=== PATIENT | male | born 1950 | race Caucasian/White ===

== ENCOUNTER → 2017-08-16 09:09 | Outpatient (CLI) | payer MEDICARE, SELFPAY ==
[2017-08-16 10:29] LABS: Absolute Neutrophil Count 4.1 X10^3/uL (2.0-7.7); Basophil# 0.02 X10^3/uL; Basophil% 0.3 % (0-1); Eosinophil# 0.08 X10^3/uL; Eosinophils% 1.3 % (0-5); Hematocrit 45.6 % (40-54); Hemoglobin 15.4 g/dl (13.0-16.5); Lymphocyte % 25.3 % (19-41); Mean Corp Hgb Conc 33.8 g/gl (32-36); Mean Corpuscular Hgb 28.7 pg (27.0-32.0); Mean Corpuscular Volume 85.1 fL (80-94); Mean Platelet Vol. 10.8 fl (6.2-12.0); Monocyte% 7.9 % (0-10); Neutrophil # 4.11 X10^3/uL (2.7-7.7); Platelet Count 257 K/mm3 (150-450); RBC Distribution Width CV 13.5 % (11.6-14.6); RBC Distribution Width SD 41.5 fl (35.1-43.9); Red Blood Count 5.36 M/mm3 (4.6-6.2); White Blood Count 6.3 K/mm3 (4.4-11.0)
[2017-08-16 10:31] LABS: POSITIVE COUNT NO; POSITIVE DIFFERENTIAL NO; POSITIVE MORPHOLOGY NO
[2017-08-16 10:46] LABS: Anion Gap 9 (5-15); BUN 17 mg/dL (7-18); BUN/Creat Ratio 13.4 RATIO (10-20); Chloride 103 mmol/L (98-107); Creatinine, Serum 1.27 mg/dL (0.70-1.30); EST Glomerular Filtration Rate 61 mL/min (>60); Est Glom Filt Rate - Afr Amer 73 mL/min (>60); Glucose 96 mg/dL (74-106); PSA,Total- Diagnostic 4.54 ng/mL (0.0-4.0); Potassium 3.8 mmol/L (3.5-5.1); Sodium Level 138 mmol/L (136-145)
== END ==
PROVIDERS: Family Provider Family Medicine; PCP Family Medicine; Visit Provider Family Medicine
DX: R42 Dizziness and giddiness (principal); R97.20 Elevated prostate specific antigen [PSA]
CPT/HCPCS: 36415; 80048; 84153; 85025

== ENCOUNTER → 2017-09-21 10:03 | Outpatient (CLI) | payer MEDICARE, SELFPAY ==
--- NOTE | 2017-09-21 10:06 | RAD_ITS ---
STUDY: X-RAY - RIGHT SHOULDER REASON FOR EXAM: Male, 67 years old. Right shoulder pain TECHNIQUE: There view(s) of the shoulder. COMPARISON: None. FINDINGS: Normal glenohumeral articulation. There is degenerative arthrosis of the acromioclavicular joint without inferior osseous spur formation. Normal acromion. Normal humeral head and visualized proximal humerus. There is periarticular soft tissue calcification consistent with a calcific tendinitis. Normal visualized pulmonary apex. RAD/Shoulder min 2 Views IMPRESSION: Mild degenerative changes. Electronically Signed: Christine Hinojosa MD at 7:35 EDT , Service support ,
== END ==
PROVIDERS: Family Provider Family Medicine; PCP Family Medicine; Visit Provider Family Medicine
DX: M25.511 Pain in right shoulder (principal)
CPT/HCPCS: 73030

== ENCOUNTER 2017-10-19 09:00 | Outpatient (RCR) | payer MEDICARE, SELFPAY ==
--- NOTE | 2017-09-27 11:09 | HP.PTEVAL_ITS ---
Patient's Visit Information AQUILES BRENNER is a 67 year old M referred to Physical Therapy by Kang IRENE with a diagnosis of RIGHT SHOULDER PAIN. Date of Evaluation: 09/27/17 Physical Therapist: Riya Velásquez Visit Plan Frequency: 2-3x /Week Duration: 4-6 Weeks Plan: CERVICAL AND RIGHT SHOULDER US, STM, MH AND/OR CP NEEDED. POSTURE CORRECTION/STRENGTHENING, INSTRUCTION IN APPROPRIATE BODY MECHANICS AND ACTIVITY MODIFICATIONS. KARLY UE ROM, STRETCHING AND STRENGTHENING. HEP INSTRUCTION. - Subjective Subjective: Diagnosis: RIGHT SHOULDER PAIN. 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 Disability: NO. Present symptoms: RIGHT SHOULDER. NO PAIN NUMBNESS OR TINGLING DOWN THE ARM. Present since: YEARS ON AND OFF. FLARED UP PLAYING TENNIS LAST FALL. Pain Scale: WORST: 8/10, LEAST 0/10. Currently: 0/10. Commenced as a result of: TENNIS LAST FALL FOLLOWED BY FISHING. Symptoms at onset: SAME. Worse: PING PONG, REACHING BEHIND BACK, LIFTING, TAKING SWEATER OFF, TENNIS, FISHING - CASTING AND REALING. RIGHT SDLY AT NIGHT. REACHING BEHIND. Better: HOT BATH, RESTING IT. Disturbed sleep: AT TIMES. Previous history/Previous treatment: DRUGS. NO PT. NO CHIRO. NO SX. NO RIGHT SHOULDER INJECTIO NO. Tinnitis: NO. Nausea: NO. Difficulty Swollowing: NO. Gait: NORMAL. Accidents: NO. Unexplained weight loss: NO. Imaging: RIGHT SHOULDER X-RAY SHOWING MILD ARTHRITIS. NO MRI. NO NECK IMAGING. RIGHT SHOULDER X-RAY: Normal glenohumeral articulation. There is degenerative arthrosis of the acromioclavicular joint without inferior osseous spur formation. Normal acromion. Normal humeral head and visualized proximal humerus. There is periarticular soft tissue calcification consistent with a calcific. tendinitis. Normal visualized pulmonary apex. PMH: HTN, FIBROMYALGIA, MODERATE DDD LUMBAR L5S1. Recent major surgery: NO. OTHER: PATIENT IS RIGHT HAND DOMINANT. HAS TRIED MEDICINE AND RESTING BUT HASN'T HELPED. - Objective Sitting Posture: POOR. FORWARD HEAD, INCREASED KYPHOSIS, ROUNDED SHOULDERS AND LOW BACK. Other Observations: INDEP GAIT AND TRANSFERS. 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 LEFT UE 5/5 WITH MMT. RIGHT SHOULDER FLEX 4-/5 , ABD 4-/5, IR 4/5, ER 4-/5, ELBOW/WRIST 5/5. POOR KARLY SCAPULAR STRENGTH RIGHT > LEFT. Sensory deficit: KARLY UE LIGHT TOUCH SENSATION IS INTACT AND SYMMETRICAL. ROM deficit: SUPINE: 145 DEG RIGHT SHOULDER PASSIVE FLEX. ABD 120 DEG. ER 80 DEG, IR 50 DEG. RIGHT ELBOW, FOREARM, WRIST AND HAND WFL. LUE WFL. Reflexes: Dural Signs: POSITIVE RIGHT UE DURAL SIGN. Cervical Mvmt Loss : Flex: NIL. Pro: NIL. Ext: HERMINIO. Ret: EHRMINIO. RSB: MOD. LSB: MOD. R Rot: MOD. L Rot: MOD. PATIENT HAS A LOT OF STIFFNESS WITH CERVICAL ROM TESTING BUT NO C/O INCREASED PAIN. ERP WITH SHOULDER ROM TESTING ALL PLANES. Postural strength: POOR. Palpation: NO ACUTE PALPABLE TENDERNESS OF CERVICAL REGION OR RIGHT SHOULDER. OTHER: MANUAL CERVCIAL DISTRACTION DECREASES RIGHT SHOULDER PAIN. - Goals Goal 1:: DECREASE C/O RIGHT SHOULDER PAIN Goal Time Frame: 4-6 Weeks Goal 2:: IMPROVE REACHING, LIFTING, ADL, RECREATIONAL AND SLEEP FUNCTION OF RIGHT UE. Goal Time Frame: 4-6 Weeks Goal 3:: INSTRUCT IN PROPHYLAXIS Goal Time Frame: 4-6 Weeks - Rehabilitation Potential Rehabilitation Potential: Fair - Anticipated Interventions Patient/Client Instruction: Educate patient on: Condition, Plan of Care, Risk Factors, Benefits of Fitness Program For the Purpose of:: To improve self management Therapeutic Exercise to Include: Strength training, Postural training, Flexibilty training, Passive ROM, Active ROM, Scapular Strength/Stabilization For the Purpose of:: To decrease pain, To increase ROM, To improve muscle performance and motor function, To improve ability of physical actions for home/ community/work/leisure Manual Therapy Techniques to Include: Mobilization, Passive ROM, Soft tissue mobilization For the Purpose of:: To decrease pain, To increase ROM, To improve nutrient delivery to tissue Cryotherapy (ice pack, ice massage): Yes Thermo therapy (hot pack): Yes Ultrasound (thermal/non thermal): Yes For the Purpose of:: To decrease pain, To decrease swelling/inflammation, To increase ROM Thank you for the opportunity to evaluate your patient. For Medicare and Medicare HMO plans, please review the plan of care and approve it. It will need to be FAXED BACK to us at [phone] for Medicare purposes. Please let me know if there are questions or concerns regarding this plan of care. Physician Signature: Date:
--- NOTE | 2017-10-19 11:53 | HP.PTREVAL_ITS ---
Kang Dickerson, It has been my pleasure to treat AQUILES BRENNER over the last 10 visits for RIGHT SHOULDER PAIN. Please see the progress note below for an update on the physical therapy plan of care! 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 REPORTS HE HAS MODIFIED HOW HE CASTS AND OTHER. REPORTS HIS HIS SHOULDER ISN'T BOTHERING HIM AT NIGHT ANYMORE AND HE THINKS IT IS ABOUT 20% BETTER. PAIN SCALE RIGHT SHOULDER: WORST 6/10, LEAST 0/10. C/O NECK STIFFNESS. INTERMITTENT NECK PAIN. PATIENT REPORTS HE THINKS THE TRACTION IS HELPING AND ALSO THINKS THE EX'S ARE HELPING. PATIENT REPORTS THAT AT THIS POINT HE WANTS TO CONTINUE INDEP'LY WITH THE EX'S AND IF HE ISN'T CONTINUEING TO IMPROVE BY THE TIME HE FOLLOWS UP WITH DR. DICKERSON HE WILL ASK ABOUT COMING BACK TO PT. Objective/Function: PATIENT IS MAKING SLOW PROGRESS TOWARD ALL PT GOALS. HE APPEARS TO BE BENEFITING FROM BOTH TRACTION AND ROTATOR CUFF INTERVENTIONS. UPON EXAM: Motor deficit: RIGHT SAND BOBBER 70 LBS RIGHT SHOULDER FLEX 4/5, ABD 4/5 , IR 4/5, ER 4/5, ELBOW/WRIST 5/5. ROM deficit: SUPINE: 165 DEG RIGHT SHOULDER PASSIVE FLEX. ABD 150 DEG. ER 90 DEG, IR 73 DEG. RIGHT ELBOW, FOREARM , WRIST AND HAND WFL. Dural Signs: POSITIVE RIGHT UE DURAL SIGN. Cervical Mvmt Loss: Flex: NIL. Pro: NIL. Ext: MOD. Ret: MOD. RSB: MOD. LSB: MOD. R Rot: MIN. L Rot: MIN. PATIENT HAS A LOT OF STIFFNESS WITH CERVICAL ROM TESTING BUT NO C/O INCREASED PAIN. ERP WITH SHOULDER ROM TESTING ALL PLANES. Palpation: NO ACUTE PALPABLE TENDERNESS OF CERVICAL REGION OR RIGHT SHOULDER. OTHER: MANUAL CERVCIAL DISTRACTION DECREASES RIGHT SHOULDER PAIN. DASH SCORE HAS IMPROVED FROM 55 TO 50 Plan Plan: PATIENT IS A GOOD CANDIDATE TO CONTINUE PT BUT WE WILL HOLD PT AT PATIENTS REQUEST UNTIL FOLLOW UP WITH DR. DICKERSON. HE IS INDEP WITH A HEP AT THIS POINT. Goals Goal 1:: DECREASE C/O RIGHT SHOULDER PAIN Goal Time Frame: 4-6 Weeks Goal Progress: Progressing Goal 2:: IMPROVE REACHING, LIFTING, ADL, RECREATIONAL AND SLEEP FUNCTION OF RIGHT UE. Goal Time Frame: 4-6 Weeks Goal Progress: Progressing Goal 3:: INSTRUCT IN PROPHYLAXIS Goal Time Frame: 4-6 Weeks Goal Progress: Progressing Anticipated Interventions Patient/Client Instruction: Educate patient on: Condition, Plan of Care, Risk Factors, Benefits of Fitness Program For the Purpose of:: To improve self management Therapeutic Exercise to Include: Strength training, Postural training, Flexibilty training, Passive ROM, Active ROM, Scapular Strength/Stabilization For the Purpose of:: To decrease pain, To increase ROM, To improve muscle performance and motor function, To improve ability of physical actions for home/ community/work/leisure Manual Therapy Techniques to Include: Mobilization, Passive ROM, Soft tissue mobilization For the Purpose of:: To decrease pain, To increase ROM, To improve nutrient delivery to tissue Cryotherapy (ice pack, ice massage): Yes Thermo therapy (hot pack): Yes Ultrasound (thermal/non thermal): Yes For the Purpose of:: To decrease pain, To decrease swelling/inflammation, To increase ROM Please do not hesitate to contact me at [phone] by phone or Fax: if you have questions or concerns regarding this new plan of care! Sincerely, Riya Carter
--- NOTE | 2018-04-06 12:48 | HP.PT.NRP ---
HP - Discharge Summary (1) - Patient Information AQUILES BRENNER was seen in my office for initial evaluation on 09/27/17. The following Plan of Care was established for this patient: Initial Frequency: 2-3x /Week Initial Duration: 4-6 Weeks - Anticipated Interventions Patient/Client Instruction: Educate patient on: Condition, Plan of Care, Risk Factors, Benefits of Fitness Program For the Purpose of:: To improve self management Therapeutic Exercise to Include: Strength training, Postural training, Flexibilty training, Passive ROM, Active ROM, Scapular Strength/Stabilization For the Purpose of:: To decrease pain, To increase ROM, To improve muscle performance and motor function, To improve ability of physical actions for home/community/work/leisure Manual Therapy Techniques to Include: Mobilization, Passive ROM, Soft tissue mobilization For the Purpose of:: To decrease pain, To increase ROM, To improve nutrient delivery to tissue Cryotherapy (ice pack, ice massage): Yes Thermo therapy (hot pack): Yes Ultrasound (thermal/non thermal): Yes For the Purpose of:: To decrease pain, To decrease swelling/inflammation, To increase ROM This patient was last seen in our office . Pertinent comments regarding their Physical therapy will appear below: This patient has not returned to Physical Therapy and is appropriate to return to MD for further follow-up as needed. At this point I will be discontinuing this patient from physical therapy. I would be happy to see this patient again in the future if found appropriate by the physician. Thank you! Riya Carter
== END 2017-10-19 19:00 | disposition home or self-care (01) ==
LOC: PT 09:00
PROVIDERS: Family Provider Family Medicine; PCP Family Medicine; Visit Provider Family Medicine
DX: M25.511 Pain in right shoulder (principal)
CPT/HCPCS: 97012; 97035; 97110; 97140; 97162; 97530

== ENCOUNTER → 2017-12-12 09:31 | Outpatient (CLI) | payer MEDICARE, SELFPAY ==
--- NOTE | 2017-12-12 09:41 | MRI_ITS ---
STUDY: MRI RIGHT SHOULDER REASON FOR EXAM: Right shoulder pain and limited range of motion since March. TECHNIQUE: Standardized fat and water weighted pulse sequences were obtained in all 3 orthogonal planes. COMPARISON: Radiographs 09/21/2017. FINDINGS: Normal supraspinatus tendon. There is a signal void at the distal anterior aspect of the infraspinatus tendon (T2 coronal image 10) measuring 0.7 cm in length. There is an intrasubstance partial-thickness tear of the proximal subscapularis tendon at the musculotendinous junction (T2 coronal image 16; T2 axial image 13). Normal teres minor tendon. Normal supraspinatus muscle. Normal infraspinatus muscle. There is a cyst at the subscapularis musculotendinous junction (T2 coronal images 16-18) measuring 3.5 cm in mediolateral dimension. Normal teres minor muscle. Normal glenohumeral articulation. Normal humeral head and visualized proximal humerus. Normal biceps labral complex. Normal intracapsular long biceps tendon. Normal labrum. Normal capsulo- ligamentous complex. There is acromioclavicular arthrosis with mild hypertrophic changes effacing the subacromial fat (T2 sagittal images 13, 14). There is a Type II morphology (curved), with a neutral orientation. There is no subacromial-subdeltoid bursal fluid. Normal visualized coracohumeral and coracoacromial ligaments. Normal deltoid muscle. Normal trapezius muscle. MRI/Upper Ext Joint Only(Routine) IMPRESSION: Infraspinatus calcific tendinitis. Intrasubstance partial-thickness tear of the proximal subscapularis tendon and cyst at the subscapularis musculotendinous junction. Acromioclavicular arthrosis. Electronically Signed: Rao Soria MD at 10:54 EDT Tel , Service support ,
== END ==
PROVIDERS: Family Provider Family Medicine; PCP Family Medicine; Visit Provider Family Medicine
DX: M25.511 Pain in right shoulder (principal)
CPT/HCPCS: 73221

== ENCOUNTER → 2018-02-27 09:50 | Outpatient (CLI) | payer MEDICARE, SELFPAY ==
[2018-02-27 12:52] LABS: Anion Gap 9 (5-15); BUN 19 mg/dL (7-18); BUN/Creat Ratio 14.2 RATIO (10-20); Calcium,Total 9.1 mg/dL (8.5-10.1); Chloride 102 mmol/L (98-107); Cholesterol 202 mg/dL (200); Creatinine, Serum 1.34 mg/dL (0.70-1.30); EST Glomerular Filtration Rate 57 mL/min (>60); Est Glom Filt Rate - Afr Amer 69 mL/min (>60); Glucose 95 mg/dL (74-106); High Density Lipoprotein 40 mg/dL; Potassium 3.8 mmol/L (3.5-5.1); Sodium Level 139 mmol/L (136-145); Triglycerides 193 mg/dL; Very Low Density Lipoprotein 39 mg/dL (5-40)
== END ==
PROVIDERS: Family Provider Family Medicine; PCP Family Medicine; Visit Provider Family Medicine
DX: I10 Essential (primary) hypertension (principal)
CPT/HCPCS: 36415; 80048; 80061

== ENCOUNTER → 2018-08-31 09:56 | Outpatient (CLI) | payer MEDICARE, SELFPAY ==
[2018-08-31 13:04] LABS: Anion Gap 8 (5-15); BUN 17 mg/dL (7-18); Calcium,Total 8.9 mg/dL (8.5-10.1); Chloride 106 mmol/L (98-107); Cholesterol 179 mg/dL (200); Creatinine, Serum 1.13 mg/dL (0.70-1.30); EST Glomerular Filtration Rate 69 mL/min (>60); Est Glom Filt Rate - Afr Amer 83 mL/min (>60); Glucose 92 mg/dL (74-106); High Density Lipoprotein 37 mg/dL; Potassium 4.2 mmol/L (3.5-5.1); Sodium Level 141 mmol/L (136-145); Triglycerides 250 mg/dL; Very Low Density Lipoprotein 50 mg/dL (5-40)
== END ==
PROVIDERS: Family Provider Family Medicine; PCP Family Medicine; Referring Provider Family Medicine; Visit Provider Family Medicine
DX: I10 Essential (primary) hypertension (principal)
CPT/HCPCS: 36415; 80048; 80061

== ENCOUNTER → 2019-04-10 08:35 | Outpatient (CLI) | payer MEDICARE, SELFPAY ==
[2019-04-10 13:00] LABS: Anion Gap 7 (5-15); BUN 16 mg/dL (7-18); BUN/Creat Ratio 13.7 RATIO (10-20); Calcium,Total 9.4 mg/dL (8.5-10.1); Chloride 105 mmol/L (98-107); Cholesterol 191 mg/dL (200); Creatinine, Serum 1.17 mg/dL (0.70-1.30); EST Glomerular Filtration Rate 66 mL/min (>60); Est Glom Filt Rate - Afr Amer 80 mL/min (>60); Glucose 85 mg/dL (74-106); High Density Lipoprotein 42 mg/dL; PSA,Total - Annual Screen 4.63 ng/mL (0.00-4.00); Potassium 3.6 mmol/L (3.5-5.1); Sodium Level 139 mmol/L (136-145); Triglycerides 114 mg/dL; Very Low Density Lipoprotein 23 mg/dL (5-40)
[2019-04-10 13:20] LABS: Microalbumin,Random Urine 9.4 mg/L (NO RANGE EST.); Microalbumin:Creatinine Ratio 4.9 mg/g CRE (<30 mg/g CRE)
== END ==
PROVIDERS: Family Provider Family Medicine; PCP Family Medicine; Referring Provider Family Medicine; Visit Provider Family Medicine
DX: Z00.00 Encounter for general adult medical examination without abnormal findings (principal); I10 Essential (primary) hypertension; R97.20 Elevated prostate specific antigen [PSA]; Z12.5 Encounter for screening for malignant neoplasm of prostate
CPT/HCPCS: 36415; 80048; 80061; 82043; 82570; 84153; G0103

== ENCOUNTER → 2019-06-08 10:38 | Outpatient (CLI) | payer MEDICARE, SELFPAY ==
--- NOTE | 2019-06-08 10:50 | RAD_ITS ---
STUDY: X-RAY - RIGHT ANKLE REASON FOR EXAM: Male, 68 years old. pain, swelling TECHNIQUE: 3 view(s) of the ankle. COMPARISON: The prior exam of October 01, 2014 FINDINGS: Hypertrophic degenerative changes at the tip of the lateral malleolus. Multiple well-corticated fragments at the tip of the medial malleolus somewhat increased in size from the prior exam. Osteophyte formation on the anterior edge of the tibia at the tibiotalar articulation. Normal visualized talus and calcaneus. The visualized subtalar, talonavicular, calcaneocuboid and tarsal articulations are normal. Generalized soft tissue swelling. RAD/Ankle min 3 Views IMPRESSION: Degenerative changes of the medial and lateral malleoli appearing fairly stable on the lateral side. Chronic fragments of the medial malleolus on the left are increasing in size. Tibiotalar osteophyte is developing anteriorly. Otherwise negative for new fracture or dislocation. Electronically Signed: Krysten Kang MD at 21:24 EST , Service support ,
--- NOTE | 2019-06-08 10:50 | RAD_ITS ---
STUDY: X-RAY - LEFT FOOT CLINICAL: Male, 68 years old. pain TECHNIQUE: 3 view(s) of the foot. COMPARISON: None. FINDINGS: Normal talus, calcaneus, and tarsal bones. Normal visualized subtalar, talonavicular, calcaneocuboid, tarsal and tarsometatarsal articulations. Normal metatarsi. There is degenerative arthrosis of the metatarsophalangeal joint of the hallux . Normal tibial and fibular sesamoid bones. Normal interphalangeal joint of the great toe. Normal phalanges of the great toe. Normal second through fifth metatarsophalangeal joints. Normal interphalangeal joints and phalanges of the lesser toes. The soft tissue structures are unremarkable. RAD/Foot min 3 Views IMPRESSION: Minimal degenerative change of the first metatarsophalangeal joint. Otherwise normal foot. Electronically Signed: Krysten Kang MD at 21:37 EST , Service support ,
== END ==
PROVIDERS: Family Provider Family Medicine; PCP Family Medicine; Referring Provider Podiatrist; Visit Provider Podiatrist
DX: M10.9 Gout, unspecified (principal)
CPT/HCPCS: 73610; 73630

== ENCOUNTER → 2019-09-06 10:25 | Outpatient (CLI) | payer MEDICARE, SELFPAY ==
[2019-09-06 12:52] LABS: Anion Gap 5 (5-15); BUN 17 mg/dL (7-18); BUN/Creat Ratio 14.5 RATIO (10-20); Calcium,Total 9.3 mg/dL (8.5-10.1); Chloride 106 mmol/L (98-107); Creatinine, Serum 1.17 mg/dL (0.70-1.30); EST Glomerular Filtration Rate 66 mL/min (>60); Est Glom Filt Rate - Afr Amer 80 mL/min (>60); Glucose 97 mg/dL (74-106); PSA,Total- Diagnostic 5.51 ng/mL (0.0-4.0); Potassium 3.8 mmol/L (3.5-5.1); Sodium Level 137 mmol/L (136-145)
== END ==
PROVIDERS: PCP Family Medicine; Referring Provider Family Medicine; Visit Provider Family Medicine
DX: R97.20 Elevated prostate specific antigen [PSA] (principal); I10 Essential (primary) hypertension
CPT/HCPCS: 36415; 80048; 84153

== ENCOUNTER → 2019-10-22 10:55 | Outpatient (CLI) | payer MEDICARE, SELFPAY ==
[2019-10-22 12:17] LABS: Absolute Lymphocyte Count 1.41 X10^3/uL (0.83-4.51); Absolute Neutrophil Count 3.6 X10^3/uL (2.0-7.7); Basophil# 0.03 X10^3/uL; Basophil% 0.5 % (0-1); Eosinophils% 1.8 % (0-5); Hematocrit 46.4 % (40-54); Lymphocyte # 1.41 X10^3/ul (4.0); Lymphocyte % 25.1 % (19-41); Mean Corp Hgb Conc 32.3 g/dL (32-36); Mean Corpuscular Hgb 28.2 pg (27.0-32.0); Mean Corpuscular Volume 87.2 fL (80-94); Mean Platelet Vol. 10.7 fl (6.2-12.0); Monocyte# 0.45 X10^3/uL; NRBC Flagged by Analyzer 0 % (0-5); Neutrophil # 3.61 X10^3/uL (2.7-7.7); Neutrophil % 64.2 % (47-70); Platelet Count 264 K/mm3 (150-450); RBC Distribution Width CV 13.4 % (11.6-14.6); RBC Distribution Width SD 42.4 fl (35.1-43.9); Red Blood Count 5.32 M/mm3 (4.6-6.2); White Blood Count 5.6 K/mm3 (4.4-11.0)
[2019-10-22 12:42] LABS: AST(SGOT) 23 U/L (15-37); Alanine Aminotransfer ALT/SGPT 34 U/L (16-61); Albumin, Serum 3.7 g/dL (3.2-5.0); Alkaline Phosphatase 92 U/L (45-117); Bilirubin, Direct 0.17 mg/dL (0.00-0.30); Creatinine, Serum 1.13 mg/dL (0.70-1.30); EST Glomerular Filtration Rate 69 mL/min (>60); Est Glom Filt Rate - Afr Amer 83 mL/min (>60); Protein, Total 7.7 g/dL (6.4-8.2); Uric Acid 3.5 mg/dL (3.5-7.2)
== END ==
PROVIDERS: PCP Family Medicine; Referring Provider Internal Medicine Rheumatology; Visit Provider Internal Medicine Rheumatology
DX: M10.9 Gout, unspecified (principal); Z79.899 Other long term (current) drug therapy
CPT/HCPCS: 36415; 80076; 82565; 84550; 85025

== ENCOUNTER → 2019-12-14 10:56 | Outpatient (CLI) | payer MEDICARE, SELFPAY ==
[2019-12-14 11:24] LABS: Mucous, Urine 0 SEEN /hpf (<or=2+); Red Blood Cells-Urine 0 SEEN /hpf (0-5); Squamous Epithelial Cells - UA 0 SEEN /hpf (0-5); White Blood Cells 0 SEEN /hpf (0-5)
[2019-12-14 12:15] LABS: Absolute Lymphocyte Count 1.46 X10^3/uL (0.83-4.51); Absolute Neutrophil Count 3.9 X10^3/uL (2.0-7.7); Basophil# 0.03 X10^3/uL; Basophil% 0.5 % (0-1); Eosinophil# 0.06 X10^3/uL; Hematocrit 47.5 % (40-54); Hemoglobin 15.5 g/dL (13.0-16.5); Lymphocyte # 1.46 X10^3/ul (4.0); Lymphocyte % 24.3 % (19-41); Mean Corp Hgb Conc 32.6 g/dL (32-36); Mean Corpuscular Hgb 28.5 pg (27.0-32.0); Mean Corpuscular Volume 87.3 fL (80-94); Mean Platelet Vol. 10.5 fl (6.2-12.0); Monocyte% 8.3 % (0-10); NRBC Flagged by Analyzer 0 % (0-5); Neutrophil # 3.94 X10^3/uL (2.7-7.7); Neutrophil % 65.7 % (47-70); Platelet Count 273 K/mm3 (150-450); RBC Distribution Width CV 13.2 % (11.6-14.6); RBC Distribution Width SD 41.3 fl (35.1-43.9); Red Blood Count 5.44 M/mm3 (4.6-6.2)
[2019-12-14 12:22] LABS: Color, Urine Yellow (Yellow); Glucose, Dipstick Normal (Normal); Ketone-Dipstick Negative (Negative); Leukocyte Esterase-Dipstick 25 /ul (Negative); Nitrite-Dipstick Negative (Negative); Occult Blood-Urine 25 /ul (Negative); Protein-Dipstick Negative (Negative); Urine Bilirubin Dipstick Negative (Negative); Urine Clarity Clear (Clear); Urine Urobilinogen Normal (Normal)
[2019-12-14 12:36] LABS: Bacteria RARE /hpf (None Seen)
[2019-12-14 12:43] LABS: AST(SGOT) 25 U/L (15-37); Alanine Aminotransfer ALT/SGPT 33 U/L (16-61); Albumin, Serum 3.9 g/dL (3.2-5.0); Alkaline Phosphatase 104 U/L (45-117); Bilirubin, Direct 0.17 mg/dL (0.00-0.30); Creatinine, Serum 1.08 mg/dL (0.70-1.30); EST Glomerular Filtration Rate 72 mL/min (>60); Est Glom Filt Rate - Afr Amer 88 mL/min (>60); Globulin 4.2 g/dL (2.2-4.2); Protein, Total 8.1 g/dL (6.4-8.2); Uric Acid 3.9 mg/dL (3.5-7.2)
[2019-12-17 16:08] LABS: RNP Ab <0.2 AI (0.0-0.9); Smith Ab <0.2 AI (0.0-0.9)
[2019-12-17 20:08] LABS: Anti-Mitochondrial AB <20.0 Units (0.0-20.0); Anti-dsDNA Ab <1 IU/mL (0-9)
[2019-12-18 09:07] LABS: Complement C3 127 mg/dL (82-167)
[2019-12-18 15:50] LABS: Anti-Cardiolipin Ab, IgG, Qn 10 GPL U/mL (0-14); Anti-Cardiolipin Ab, IgM, Qn < 9 MPL U/mL (0-12); Anti-Smooth Muscle ABS 24 Units (0-19); Thyroglobulin Antibody < 1.0 IU/mL (0.0-0.9); Thyroid Peroxidase AB < 9 IU/mL (0-34)
== END ==
PROVIDERS: PCP Family Medicine; Referring Provider Internal Medicine Rheumatology; Visit Provider Internal Medicine Rheumatology
DX: R76.0 Raised antibody titer (principal); Z79.899 Other long term (current) drug therapy; M10.9 Gout, unspecified
CPT/HCPCS: 36415; 80076; 81001; 82565; 83516; 84550; 85025; 86147; 86160; 86225; 86235; 86376; 86800

== ENCOUNTER → 2020-03-06 08:51 | Outpatient (CLI) | payer MEDICARE, SELFPAY ==
--- NOTE | 2020-03-06 08:53 | RAD_ITS ---
STUDY: X-RAY - LEFT SHOULDER REASON FOR EXAM: Male, 69 years old. Left shoulder pain TECHNIQUE: 4 view(s) of the shoulder. COMPARISON: None. FINDINGS: There is mild degenerative arthrosis of the glenohumeral articulation. There is degenerative arthrosis of the acromioclavicular joint without inferior osseous spur formation. Normal acromion. Normal humeral head and visualized proximal humerus. The soft tissue structures are unremarkable. Normal visualized pulmonary apex. RAD/Shoulder min 2 Views IMPRESSION: Degenerative changes of the shoulder joint and acromioclavicular joint. Electronically Signed: Jesus Alberto Rodriguez, at 13:59 EDT , Service support ,
[2020-03-06 18:30] LABS: PSA,Total- Diagnostic 5.52 ng/mL (0.0-4.0)
[2020-03-09 14:50] LABS: PSA, Free % 27.9 % (.); PSA, Total Ultrasensitive 4.3 ng/mL (0.0-4.0)
== END ==
PROVIDERS: PCP Family Medicine; Referring Provider Family Medicine; Visit Provider Family Medicine
DX: M25.512 Pain in left shoulder (principal); R97.20 Elevated prostate specific antigen [PSA]
CPT/HCPCS: 36415; 73030; 84153; 84154

== ENCOUNTER 2020-03-17 09:30 | Outpatient (RCR) | payer MEDICARE, SELFPAY ==
--- NOTE | 2020-03-11 07:47 | HP.PTEVAL ---
Patient's Visit Information AQUILES BRENNER is a 69 year old M referred to Physical Therapy by Dr. Kang Dickerson MD with a diagnosis of L shoulder pain. Date of Evaluation: 03/11/20 Physical Therapist: German Ceron DPT, OCS, CSCS - Visit Plan Frequency: 1x/Week Duration: 4-6 Weeks Plan: weekly x 4-6 to progress HEP for strengtha dn ROM. Educate on activitiy modification. Next time strength if improving(phase 3) or end range stretches if flexion, abd, IR, ER still limited and painful - Subjective L shoulder hurting 3-4 months insidious but possibly after using the chainsaw. Intermittent pain. Can't reach with L arm or put hand behind back, hard to dress. Can't sleep on left side. Got cortisone injection a few days ago which helped a little buit. Reaching pain is 10/10. Comfortable at rest. Sometimes it hurts at rest. Sleep is not bad but wakes up with pain at times. Retired. Spends day working in yard and fishing and this hurts to fish needing to take ibuprofen. Is R handed. Basic ADLS are getting done but dressing can hurt. No regular exercises. - Pain L shoulder top Pain Intensity (Out of 10): 0 Pain Intensity Range: 0, 10 - Objective Walks and trasnfers normal. Cervical AROM WFL and painfree. Tender to palpation over anterior superior joint and at supraspinatus insertion. + H and + neer test, - ext rotation lag test, - apprehension, - sulcus, - drop arm test. AROM L shoulder 35 ext rotation and pain, 70 IR at 80 abd with some pain, 145 flexion with pain, 140 abd with pain. R shoulder is 160 elevation, and 75 ext rotation and 80 IR without pain. reflexes 2/3 patella and achilles. Sensation UE WNL. Strength ext rotation slight pain and 4-, IR pain and 4-, flexiona nd abduction 4- and painful all on L. R side is 4+ and painfree today. Firm endfeel at end of elevation and external rotation on L prom. - Goals Goal 1:: Put on jacket without Pain L shoulder Goal Time Frame: 4-6 Weeks Goal 2:: Pt feel pain 90% better and 1/10 at worst Goal Time Frame: 4-6 Weeks Goal 3:: Quick Dash score of 15 or less Goal Time Frame: 4-6 Weeks Goal 4:: Sleep without waking due to pain Goal Time Frame: 4-6 Weeks - Rehabilitation Potential Physical Therapy Diagnosis: L supra tendonitis vs OA L shoulder. Rehabilitation Potential: Fair - Anticipated Interventions Patient/Client Instruction: Educate patient on: Condition, Plan of Care For the Purpose of:: To decrease pain, To increase ROM, To improve muscle performance and motor function, To increase tolerance to activity/condition/position, To improve ability of physical actions for home/community/work/leisure Therapeutic Exercise to Include: Strength training, Postural training, Flexibilty training, Scapular Strength/Stabilization For the Purpose of:: To decrease pain, To increase ROM, To improve muscle performance and motor function, To increase tolerance to activity/condition/position Manual Therapy Techniques to Include: Mobilization For the Purpose of:: To increase ROM Ultrasound (thermal/non thermal): Yes For the Purpose of:: To increase tolerance to activity/condition/position Thank you for the opportunity to evaluate your patient. For Medicare and Medicare HMO plans, please review the plan of care and approve it. It will need to be FAXED BACK to us at [phone] for Medicare purposes. For Medicare only, by signing this I certify the plan of care. Please let me know if there are questions or concerns regarding this plan of care. Physician Signature: Date:
--- NOTE | 2020-05-06 15:49 | HP.PT.NRP ---
AQUILES BRENNER was seen in my office for initial evaluation on 03/11/20. The following Plan of Care was established for this patient: Initial Frequency: 1x/Week Initial Duration: 4-6 Weeks Patient/Client Instruction: Educate patient on: Condition, Plan of Care For the Purpose of:: To decrease pain, To increase ROM, To improve muscle performance and motor function, To increase tolerance to activity/condition/position, To improve ability of physical actions for home/community/work/leisure Therapeutic Exercise to Include: Strength training, Postural training, Flexibilty training, Scapular Strength/Stabilization For the Purpose of:: To decrease pain, To increase ROM, To improve muscle performance and motor function, To increase tolerance to activity/condition/position Manual Therapy Techniques to Include: Mobilization For the Purpose of:: To increase ROM Ultrasound (thermal/non thermal): Yes For the Purpose of:: To increase tolerance to activity/condition/position This patient was last seen in our office 03/17/20. Pertinent comments regarding their Physical therapy will appear below: Pt seen two visits of POC and then did not return for any further visits. at this point, it has been over two months and I will discontinue due to nonattendance. At this point I will be discontinuing this patient from physical therapy. I would be happy to see this patient again in the future if found appropriate by the physician. Thank you! German Ceron, DPT, OCS, CSCS
== END 2020-03-17 19:00 | disposition home or self-care (01) ==
LOC: PT 09:30
PROVIDERS: PCP Family Medicine; Referring Provider Family Medicine; Visit Provider Family Medicine
DX: M25.512 Pain in left shoulder (principal)
CPT/HCPCS: 97110; 97161

== ENCOUNTER → 2020-04-14 08:18 | Outpatient (CLI) | payer MEDICARE, SELFPAY ==
[2020-04-14 08:25] LABS: Bacteria 0 SEEN /hpf (None Seen); Mucous, Urine 0 SEEN /hpf (<or=2+); Squamous Epithelial Cells - UA 0 SEEN /hpf (0-5); White Blood Cells 0 SEEN /hpf (0-5)
[2020-04-14 10:42] LABS: Absolute Lymphocyte Count 1.56 X10^3/uL (0.83-4.51); Absolute Neutrophil Count 5.2 X10^3/uL (2.0-7.7); Basophil# 0.02 X10^3/uL; Basophil% 0.3 % (0-1); Eosinophil# 0.05 X10^3/uL; Eosinophils% 0.7 % (0-5); Hematocrit 47.9 % (40-54); Hemoglobin 15.2 g/dL (13.0-16.5); Lymphocyte # 1.56 X10^3/ul (4.0); Lymphocyte % 21.3 % (19-41); Mean Corp Hgb Conc 31.7 g/dL (32-36); Mean Corpuscular Hgb 28.4 pg (27.0-32.0); Mean Corpuscular Volume 89.4 fL (80-94); Mean Platelet Vol. 10.4 fl (6.2-12.0); Monocyte# 0.48 X10^3/uL; Monocyte% 6.5 % (0-10); NRBC Flagged by Analyzer 0 % (0-5); Neutrophil % 70.8 % (47-70); Platelet Count 271 K/mm3 (150-450); RBC Distribution Width SD 42.9 fl (35.1-43.9); Red Blood Count 5.36 M/mm3 (4.6-6.2); White Blood Count 7.3 K/mm3 (4.4-11.0)
[2020-04-14 10:51] LABS: Color, Urine Yellow (Yellow); Glucose, Dipstick Normal (Normal); Ketone-Dipstick Negative (Negative); Leukocyte Esterase-Dipstick Negative /ul (Negative); Nitrite-Dipstick Negative (Negative); Occult Blood-Urine 25 /ul (Negative); Protein-Dipstick Negative (Negative); Urine Bilirubin Dipstick Negative (Negative); Urine Clarity Clear (Clear); Urine Urobilinogen Normal (Normal)
[2020-04-14 10:59] LABS: AST(SGOT) 19 U/L (15-37); Alanine Aminotransfer ALT/SGPT 29 U/L (16-61); Albumin, Serum 3.8 g/dL (3.2-5.0); Alkaline Phosphatase 89 U/L (45-117); Bilirubin, Direct 0.21 mg/dL (0.00-0.30); Creatinine, Serum 1.17 mg/dL (0.70-1.30); EST Glomerular Filtration Rate 66 mL/min (>60); Est Glom Filt Rate - Afr Amer 80 mL/min (>60); Globulin 3.9 g/dL (2.2-4.2); Protein, Total 7.7 g/dL (6.4-8.2); Uric Acid 3.3 mg/dL (3.5-7.2)
[2020-04-14 11:25] LABS: Red Blood Cells-Urine 0-5 SEEN /hpf (0-5)
[2020-04-15 15:41] LABS: Anti-dsDNA Ab 1 IU/mL (0-9)
[2020-04-15 16:08] LABS: Complement C3 133 mg/dL (82-167)
[2020-04-15 19:50] LABS: Anti-Smooth Muscle ABS 19 Units (0-19)
== END ==
PROVIDERS: PCP Family Medicine; Referring Provider Internal Medicine Rheumatology; Visit Provider Internal Medicine Rheumatology
DX: K75.4 Autoimmune hepatitis (principal); R76.0 Raised antibody titer; M10.9 Gout, unspecified
CPT/HCPCS: 36415; 80076; 81001; 82565; 83516; 84550; 85025; 86160; 86225

== ENCOUNTER → 2020-04-17 08:49 | Outpatient (CLI) | payer MEDICARE, SELFPAY ==
[2020-04-17 10:16] LABS: Cholesterol 189 mg/dL (200); High Density Lipoprotein 53 mg/dL; Triglycerides 117 mg/dL; Very Low Density Lipoprotein 23 mg/dL (5-40)
== END ==
PROVIDERS: PCP Family Medicine; Referring Provider Family Medicine; Visit Provider Family Medicine
DX: I10 Essential (primary) hypertension (principal)
CPT/HCPCS: 36415; 80061

== ENCOUNTER → 2020-08-11 15:37 | Outpatient (CLI) | payer MEDICARE, SELFPAY ==
[2020-08-11 15:44] LABS: Bacteria 0 SEEN /hpf (None Seen); Mucous, Urine 0 SEEN /hpf (<or=2+); Squamous Epithelial Cells - UA 0 SEEN /hpf (0-5); White Blood Cells 0 SEEN /hpf (0-5)
[2020-08-11 18:02] LABS: Absolute Lymphocyte Count 2.04 X10^3/uL (0.83-4.51); Basophil# 0.04 X10^3/uL; Basophil% 0.6 % (0-1); Eosinophils% 1.5 % (0-5); Hematocrit 45.4 % (40-54); Hemoglobin 14.7 g/dL (13.0-16.5); Lymphocyte # 2.04 X10^3/ul (4.0); Mean Corp Hgb Conc 32.4 g/dL (32-36); Mean Corpuscular Hgb 28.6 pg (27.0-32.0); Mean Corpuscular Volume 88.3 fL (80-94); Mean Platelet Vol. 10.7 fl (6.2-12.0); Monocyte# 0.65 X10^3/uL; Monocyte% 9.6 % (0-10); NRBC Flagged by Analyzer 0 % (0-5); Neutrophil # 3.95 X10^3/uL (2.7-7.7); Platelet Count 285 K/mm3 (150-450); RBC Distribution Width CV 13.1 % (11.6-14.6); RBC Distribution Width SD 42.3 fl (35.1-43.9); Red Blood Count 5.14 M/mm3 (4.6-6.2); White Blood Count 6.8 K/mm3 (4.4-11.0)
[2020-08-11 18:39] LABS: Color, Urine Yellow (Yellow); Glucose, Dipstick Normal (Normal); Ketone-Dipstick Negative (Negative); Leukocyte Esterase-Dipstick 25 /ul (Negative); Nitrite-Dipstick Negative (Negative); Occult Blood-Urine 50 /ul (Negative); Protein-Dipstick Negative (Negative); Urine Bilirubin Dipstick Negative (Negative); Urine Clarity Clear (Clear); Urine Urobilinogen Normal (Normal)
[2020-08-11 18:50] LABS: AST(SGOT) 19 U/L (15-37); Alanine Aminotransfer ALT/SGPT 38 U/L (16-61); Alkaline Phosphatase 117 U/L (45-117); Bilirubin, Direct 0.14 mg/dL (0.00-0.30); EST Glomerular Filtration Rate 71 mL/min (>60); Est Glom Filt Rate - Afr Amer 86 mL/min (>60); Uric Acid 3.3 mg/dL (3.5-7.2)
[2020-08-11 18:58] LABS: Red Blood Cells-Urine 0-5 SEEN /hpf (0-5)
[2020-08-13 15:42] LABS: Anti-dsDNA Ab 1 IU/mL (0-9)
[2020-08-13 16:10] LABS: Complement C3 129 mg/dL (82-167)
[2020-08-13 16:20] LABS: Anti-Smooth Muscle ABS 25 Units (0-19)
== END ==
PROVIDERS: PCP Family Medicine; Referring Provider Internal Medicine Rheumatology; Visit Provider Internal Medicine Rheumatology
DX: R76.0 Raised antibody titer (principal); M10.9 Gout, unspecified; K75.4 Autoimmune hepatitis; Z79.899 Other long term (current) drug therapy
CPT/HCPCS: 36415; 80076; 81001; 82565; 83516; 84550; 85025; 86160; 86225

== ENCOUNTER 2020-08-12 05:55 | Emergency (ER) | payer MEDICARE, SELFPAY ==
[2020-08-12 05:57] VITALS: BP 161/85; PULSE 88; RESP 13; TEMP 36.8; O2SAT 98; BMI 29.0
--- NOTE | 2020-08-12 06:03 | EKG12_ITS ---
Test Reason : CP Blood Pressure : / mmHG Vent. Rate : 091 BPM Atrial Rate : 091 BPM P-R Int : 184 ms QRS Dur : 084 ms QT Int : 358 ms P-R-T Axes : 062 065 050 degrees QTc Int : 440 ms Normal sinus rhythm Normal ECG Confirmed by YAMILET MCCAIN, RONDA ([id number]), advertising editor MICHELLE GUERIN ([id number]) on 08/13/2020 12:50:56 PM Referred By: DC Confirmed By:RONDA WOODARD MD
--- NOTE | 2020-08-12 06:03 | RAD_ITS ---
STUDY: X-RAY CHEST REASON FOR EXAM: Male, 70 years old. C/O LT SIDED CP SINCE 189908/11/20 TECHNIQUE: Single AP portable view of the chest. COMPARISON: None. FINDINGS: The lungs are clear and expanded. There is no demonstrated pleural abnormality. Normal size heart. Normal mediastinum and natalie. Normal visualized pulmonary arteries. Normal visualized aortic arch and descending thoracic aorta. Normal visualized thoracic spine. There is degenerative osteoarthritis of the bilateral shoulders. There is no demonstrated abnormality of the visualized soft tissue structures of the upper abdomen. RAD/Chest 1 View (Portable) IMPRESSION: Degenerative changes, as described above. No demonstrated acute cardiopulmonary process. Electronically Signed: Franklin Baca MD at 6:29 EST Tel , Service support ,
[2020-08-12 06:05] VITALS: O2SAT 97
[2020-08-12] MEDS: Aspirin 81 MG TAB.CHEW 324 MG PO (06:06)
[2020-08-12 06:10] LABS: Absolute Lymphocyte Count 2.26 X10^3/uL (0.83-4.51); Absolute Neutrophil Count 4.3 X10^3/uL (2.0-7.7); Basophil# 0.04 X10^3/uL; Basophil% 0.5 % (0-1); Eosinophil# 0.11 X10^3/uL; Eosinophils% 1.5 % (0-5); Hematocrit 46.6 % (40-54); Hemoglobin 15.2 g/dL (13.0-16.5); Lymphocyte # 2.26 X10^3/ul (4.0); Lymphocyte % 30.2 % (19-41); Mean Corp Hgb Conc 32.6 g/dL (32-36); Mean Corpuscular Hgb 28.7 pg (27.0-32.0); Mean Corpuscular Volume 87.9 fL (80-94); Monocyte# 0.76 X10^3/uL; Monocyte% 10.1 % (0-10); NRBC Flagged by Analyzer 0 % (0-5); Neutrophil # 4.31 X10^3/uL (2.7-7.7); Neutrophil % 57.6 % (47-70); Platelet Count 252 K/mm3 (150-450); RBC Distribution Width CV 13.1 % (11.6-14.6); RBC Distribution Width SD 42.3 fl (35.1-43.9); White Blood Count 7.5 K/mm3 (4.4-11.0)
[2020-08-12 06:24] LABS: Anion Gap 7 (5-15); BUN 14 mg/dL (7-18); BUN/Creat Ratio 12.2 RATIO (10-20); Calcium,Total 9.5 mg/dL (8.5-10.1); Chloride 103 mmol/L (98-107); Creatinine, Serum 1.15 mg/dL (0.70-1.30); EST Glomerular Filtration Rate 67 mL/min (>60); Est Glom Filt Rate - Afr Amer 81 mL/min (>60); Estimated Creatinine Clearance 59.48 ml/min; Glucose 103 mg/dL (74-106); Potassium 3.6 mmol/L (3.5-5.1); Sodium Level 139 mmol/L (136-145)
--- NOTE | 2020-08-12 06:32 | ED.VISSUMM ---
- ER Visit Summary Date of Service: 08/12/20 Chief Complaint: Chest pain History of Present Illness: The patient is a 70 M with chest pain that started around 7 PM yesterday. It has been intermittent since. Worse with occasional coughing and pulling movements with his arms. It feels sharp like his prior fibromyalgia. The only thing different, is that the pain is not going away. No history of ACS. He had a stress test 10 or 12 years ago which was negative. He never had a cath and does not take aspirin. He denies any exertional components or other associated symptoms like sweats, nausea, or shortness of breath. He denies any history of DVT or PE. Denies leg swelling or calf pain. Denies recent travel, surgery, or immobilization. Denies any family history. Denies any hormone use. Non-smoker. No hemoptysis. Denies any history of aortic disease. Denies any associated neurologic symptoms. Denies fever, cough, or sputum. Denies any history of lung disease. Physical Examination: Afebrile and vital signs unremarkable except for blood pressure 161/85. He appears in no acute distress. Skin is normal in color without pallor or diaphoresis. Heart regular rate and rhythm. Lungs clear. Abdomen soft. Extremities nontender with no edema. Negative Homans' sign. Pulses strong and equal bilaterally. Test Results: EKG shows sinus rhythm at a rate of 91. CBC, BMP, troponin all normal. Chest x-ray was normal. This was reviewed by me and the radiologist. Emergency Department Course and Treatment: Patient received aspirin and was placed on the monitor. His work-up as above was unremarkable. His symptoms are very atypical. His heart score is a 3. We will repeat the troponin here in the ED and he will be discharged if negative for outpatient follow-up. There is nothing to suggest PE, aortic disease, and nothing that would require further emergent investigation or hospitalization. Patient was advised that if he does have any new or worsening issues, he should return to the ED for evaluation. Otherwise, follow-up with primary care. Treatment Plan: Oncoming physician will check the repeat troponin. Disposition: Discharge pending repeat troponin. Impression: Atypical chest pain This note was generated with [employer] software. It may contain incorrect words, spelling, and punctuation that were not noted in review of the chart prior to signing ED Disposition - Plan for ED Patient: Referrals: Kang Dickerson MD [Primary Care Provider] -
--- NOTE | 2020-08-12 06:36 | ED.DEP ---
ED Disposition - Plan for ED Patient: Instructions: ED Chest Pain, Uncertain Cause Referrals: Kang Dickerson MD [Primary Care Provider] -
[2020-08-12 08:53] VITALS: BP 117/76; PULSE 72; RESP 19; O2SAT 95
[2020-08-12 09:49] VITALS: BP 120/73; PULSE 66; RESP 15; O2SAT 97
== END 2020-08-12 09:50 | disposition home or self-care (01) ==
LOC: ED 06:29
PROVIDERS: Emergency Provider Emergency Medicine; PCP Family Medicine
DX: R07.89 Other chest pain (principal); I10 Essential (primary) hypertension; M79.7 Fibromyalgia; K21.9 Gastro-esophageal reflux disease without esophagitis; M10.9 Gout, unspecified; Z79.899 Other long term (current) drug therapy
CPT/HCPCS: 36415; 71045; 80048; 84484; 85025; 93005; 99285; A4216

== ENCOUNTER → 2020-10-13 08:33 | Outpatient (CLI) | payer MEDICARE, SELFPAY ==
[2020-10-13 10:20] LABS: Anion Gap 6 (5-15); BUN 16 mg/dL (7-18); BUN/Creat Ratio 13.8 RATIO (10-20); Calcium,Total 9.3 mg/dL (8.5-10.1); Chloride 103 mmol/L (98-107); Cholesterol 180 mg/dL (200); Creatinine, Serum 1.16 mg/dL (0.70-1.30); EST Glomerular Filtration Rate 67 mL/min (>60); Est Glom Filt Rate - Afr Amer 80 mL/min (>60); Glucose 101 mg/dL (74-106); High Density Lipoprotein 45 mg/dL; Potassium 4.1 mmol/L (3.5-5.1); Sodium Level 137 mmol/L (136-145); Triglycerides 137 mg/dL; Very Low Density Lipoprotein 27 mg/dL (5-40)
== END ==
PROVIDERS: PCP Family Medicine; Visit Provider Family Medicine
DX: I10 Essential (primary) hypertension (principal)
CPT/HCPCS: 36415; 80048; 80061

== ENCOUNTER → 2020-12-12 10:24 | Outpatient (CLI) | payer MEDICARE, SELFPAY ==
[2020-12-12 10:36] LABS: Bacteria 0 SEEN /hpf (None Seen)
[2020-12-12 12:27] LABS: Absolute Lymphocyte Count 1.23 X10^3/uL (0.83-4.51); Absolute Neutrophil Count 4.2 X10^3/uL (2.0-7.7); Basophil# 0.04 X10^3/uL; Basophil% 0.7 % (0-1); Eosinophil# 0.04 X10^3/uL; Eosinophils% 0.7 % (0-5); Hematocrit 44.6 % (40-54); Hemoglobin 14.7 g/dL (13.0-16.5); Lymphocyte # 1.23 X10^3/ul (0.83-4.51); Lymphocyte % 20.7 % (19-41); Mean Corpuscular Hgb 28.8 pg (27.0-32.0); Mean Corpuscular Volume 87.5 fL (80-94); Mean Platelet Vol. 10.9 fl (6.2-12.0); Monocyte# 0.36 X10^3/uL; Monocyte% 6.1 % (0-10); NRBC Flagged by Analyzer 0 % (0-5); Neutrophil # 4.23 X10^3/uL (2.7-7.7); Neutrophil % 71.3 % (47-70); Platelet Count 278 K/mm3 (150-450); RBC Distribution Width CV 13.4 % (11.6-14.6); RBC Distribution Width SD 42.7 fl (35.1-43.9); White Blood Count 5.9 K/mm3 (4.4-11.0)
[2020-12-12 12:37] LABS: Color, Urine Yellow (Yellow); Glucose, Dipstick Normal (Normal); Ketone-Dipstick 5 mg/dl (Negative); Leukocyte Esterase-Dipstick 25 /ul (Negative); Nitrite-Dipstick Negative (Negative); Occult Blood-Urine 25 /ul (Negative); Protein-Dipstick Negative (Negative); Urine Bilirubin Dipstick Negative (Negative); Urine Clarity Clear (Clear); Urine Urobilinogen Normal (Normal)
[2020-12-12 12:46] LABS: Red Blood Cells-Urine 0-5 SEEN /hpf (0-5); Squamous Epithelial Cells - UA 0-5 SEEN /hpf (0-5); White Blood Cells 0-5 SEEN /hpf (0-5)
[2020-12-12 12:47] LABS: Mucous, Urine 1+ /hpf (<or=2+)
[2020-12-12 13:15] LABS: AST(SGOT) 26 U/L (15-37); Alanine Aminotransfer ALT/SGPT 32 U/L (16-61); Alkaline Phosphatase 102 U/L (45-117); Bilirubin, Direct 0.18 mg/dL (0.00-0.30); Creatinine, Serum 1.25 mg/dL (0.70-1.30); EST Glomerular Filtration Rate 61 mL/min (>60); Est Glom Filt Rate - Afr Amer 74 mL/min (>60); Globulin 3.6 g/dL (2.2-4.2); Protein, Total 7.6 g/dL (6.4-8.2); Uric Acid 3.2 mg/dL (3.5-7.2)
[2020-12-13 10:10] LABS: Complement C3 127 mg/dL (82-167)
== END ==
PROVIDERS: PCP Family Medicine; Referring Provider Internal Medicine Rheumatology; Visit Provider Internal Medicine Rheumatology
DX: R76.0 Raised antibody titer (principal); M10.9 Gout, unspecified; K75.4 Autoimmune hepatitis; Z79.899 Other long term (current) drug therapy; R31.21 Asymptomatic microscopic hematuria
CPT/HCPCS: 36415; 80076; 81001; 82565; 84550; 85025; 86038; 86160; 86225; 86235

== ENCOUNTER 2021-04-03 07:58 | Emergency (ER) | payer MEDICARE, SELFPAY ==
[2021-04-03 07:59] VITALS: BP 167/85; PULSE 86; RESP 14; TEMP 36.1; O2SAT 96; BMI 28.1
--- NOTE | 2021-04-03 08:32 | CT_ITS ---
STUDY: CTA OF THE ABDOMINAL AORTA AND BILATERAL LOWER EXTREMITIES REASON FOR EXAM: Male, 70 years old. Claudication left thigh RADIATION DOSAGE (If Supplied By Facility): CTDIvol = ( 8.73 ) mGy, DLP = ( 1335.78 ) mGycm TECHNIQUE: Axial CT angiography multi-detector data acquisition was obtained from the to the following intravenous administration of IV 100mL Isovue-370. Axial images and MIP images were reconstructed from the axial data set. Post-processing of the angiographic images was performed, with multiplanar reformation and 3D reconstruction. Individualized dose optimization techniques were used for this CT. TECHNICAL QUALITY: Good COMPARISON: None. Descriptors of Narrowing: None (0%) Mild (< 50%) Moderate (50-70%) Severe (70-90%) Subtotal/Total Occlusion (90-100%) Non-Evaluable (technically non-diagnostic FINDINGS: Diffuse fatty alteration of the liver. Small hiatal hernia. There is a 3.7 cm x 2.6 cm cyst in the medial inferior pole of the left kidney. A 1 cm cyst is also seen in the lower pole. Distended urinary bladder. The prostate measures 5 cm x 5.8 cm. This causes indentation at the bladder base. Abdominal aorta: Scattered atherosclerotic plaques. Celiac and superior mesenteric arteries: Mild plaque formation at the origin of the superior mesenteric artery. Left common iliac artery: Nonstenotic calcific plaque. Left external iliac artery: No demonstrated narrowing. Left internal iliac artery: No demonstrated narrowing. LEFT LOWER EXTREMITY Left common femoral artery: No demonstrated narrowing. Left profundus femoris: No demonstrated narrowing. Left superficial femoral: No demonstrated narrowing. Left popliteal artery: No demonstrated narrowing. Left tibioperoneal trunk: No demonstrated narrowing. Left anterior tibial artery: No demonstrated narrowing. Left posterior tibial artery: No demonstrated narrowing. Left peroneal artery: No demonstrated narrowing. CT/CTA LWR EXTR W/O & W/DYE IMPRESSION: Atherosclerotic calcific plaques of the abdominal aorta and origin of the superior mesenteric artery. Nonstenotic plaque in the left common iliac artery. Electronically Signed: Jesus Alberto Rodriguez MD at 10:56 EDT , Service support ,
--- NOTE | 2021-04-03 08:34 | EDS_ITS ---
HPI History of Present Illness Chief Complaint: Lower Extremity Injury Informant: patient Onset/Context/Timing Onset: Days (2) Context: Sudden Onset Timing: Continuous Quality of Pain: Aching Current Severity: Severe Maximum Severity: Severe Worsened by: Movement Relieved by: Nothing Narrative Narrative: Progressively worsening constant pain left anterior distal thigh. Sometimes goes into the anterior knee but mostly the just the distal thigh. It hurts worse to move, especially walking, but it is severe without moving at all. He denies any distal edema. He denies numbness anywhere. 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 He denies any injury. He states the day before that his back was sore, but the back has not been bothering him anymore. He denies any known history of va scular disease. At this time he denies any joints being involved. Patient states he had this once before, but after taking ibuprofen for a while and ended up going away and he states he saw someone that could not figure out what it was. [facility] Medical History Asthma Fibromyalgia GERD (gastroesophageal reflux disease) Gout HTN (hypertension) Home Medications amitriptyline 10 mg PO QHS 11/25/13 [History Last Taken Unknown] allopurinol 300 mg PO DAILY 08/12/20 [History Last Taken Unknown] colchicine 1 tab PO DAILY 08/12/20 [History Last Taken Unknown] losartan 100 mg PO DAILY 08/12/20 [History Last Taken Unknown] amlodipine 2.5 mg PO DAILY 04/03/21 [History Last Taken Unknown] hydrocodone-acetaminophen 1 tab PO PRN PRN 04/03/21 [History Last Taken Unknown] omeprazole 20 mg PO DAILY 04/03/21 [History Last Taken Unknown] oxycodone-acetaminophen 1 - 2 tab PO Q6H PRN PRN 3 Days #24 tablet 04/03/21 [Rx Last Taken Unknown] tamsulosin 0.4 mg PO DAILY 04/03/21 [History Last Taken Unknown] Allergy/AdvReac Type Severity Reaction Status Date / Time No Known Allergies Allergy Verified 04/03/21 07:58 Social History Smoking Status: Never smoker ROS ROS ED Constitutional Constitutional ED: Denies chills or fever(s) Musculoskeletal Musculoskeletal: Reports extremity pain; Denies neck pain Integumentary Denies Abrasions, rash or wounds Neurologic Neurologic: Denies paresthesias or weakness EXAM Physical Exam Const Vital Signs: 04/03/21 07:59 Temperature 96.9 F L Temperature Source Temporal Pulse Rate 86 Respiratory Rate 14 Blood Pressure 167/85 H Blood Pressure Mean 112 Pulse Ox 96 Oxygen Delivery Method Room Air Positive well nourished and well developed General Appearance ED: well developed and NAD Neck full ROM and supple Resp normal respiratory effort, normal air movement and no retractions Cardio regular rate, regular rhythm, S1 normal heart sound and no murmurs Back/Spine normal ROM and normal to inspection Extremity normal to inspection and full ROM Extremity Narrative: Normal inspection left lower extremity. No edema. No tenderness in the area of severe pain in the distal anterior thigh which is norm al-appearing and feeling on palpation. No palpable cords. No bony tenderness at the knee, no joint effusion, he has full range of motion. No popliteal pain. No calf tenderness. No inguinal lymphadenopathy. No skin lesions. It hurts more for him to hold his leg up in knee extension then it does to bend at the knee with his foot on the bed. Bounding 2+/4 dorsalis pedis pulse with brisk cap refill distally. Neuro oriented x3, no focal motor deficits, no sensory deficits noted and deep tendon reflexes 2+ bilaterally Sensorium / Orientation: alert Psych mental status grossly normal and thought process normal Skin no wounds Rashes: no rashes MDM MDM MDM Narrative Medical decision making narrative: Patient states he is in severe pain but has a very normal physical exam with soft compartments, good blood flow distally, full range of motion, no edema or palpable cords, no rash or lesions on the skin, and basically no tenderness; otherwise this would be most consistent with patellofemoral syndrome. He states his back pain is gone, although I suppose radiculopathy is still in the differential diagnosis. His straight leg raises are negative. The pain asked muscular except I cannot palpate anything that is tender in the affected musculature. Given the pain out of proportion to exam, in order to rule out limb threatening problems, I obtained a CT angiography of the left lower extremity, it showed some minor plaques but no hemodynamically significant lesions or blocked arteries. Also did a venous evaluation showing no DVT or SVT. His white blood count is at the high end of the normal range, he has some mild renal insufficiency, but essentially these are unremarkable given the problem at hand. He has no other symptoms and does not have any back pain. The CTA was essentially normal, also showing no other abnormalities in the affected area. At this time I see no threat to his left lower extremity, nor life threat. I think it would be reasonable to treat his pain, he was given several doses of analgesics here parenterally, he has crutches at home, he is taking ibuprofen 800 mg 3 times daily, I told him to not do this, only once maybe twice given his age and renal insufficiency, and prescribed him Percocet advised to follow-up if the pain does not resolve after the weekend. Lab Data Attestation: I reviewed the patient's lab results. Labs: Laboratory Results - last 24 hr 04/03/21 04/03/21 08:45 08:45 WBC 10.4 RBC 5.48 Hgb 15.8 Hct 47.7 MCV 87.0 MCH 28.8 MCHC 33.1 RDW Std Deviation 41.8 RDW Coeff of Gadiel 13.2 Plt Count 294 MPV 10.3 Immature Gran % (Auto) 0.500 Neut % (Auto) 85.2 H Lymph % (Auto) 10.5 L [place] % (Auto) 3.2 Eos % (Auto) 0.1 Baso % (Auto) 0.5 Absolute Neuts (auto) 8.9 H Absolute Lymphs (auto) 1.09 Nucleated RBC % 0 Sodium 135 L Potassium 4.1 Chloride 101 Carbon Dioxide 27.0 Anion Gap 7 BUN 19 H Creatinine 1.37 H Estim Creat Clear Calc 49.93 Est GFR (MDRD) Af Amer 66 Est GFR (MDRD) Non-Af 55 L BUN/Creatinine Ratio 13.9 Glucose 147 H Calcium 9.6 Radiography Diagnostic Testing: Clinical Impression(s) from Imaging Studies Lower Extremity CTA 04/03/21 08:32 IMPRESSION: Atherosclerotic calcific plaques of the abdominal aorta and origin of the superior mesenteric artery. Nonstenotic plaque in the left common iliac artery. Electronically Signed: Jesus Alberto Rodriguez MD at 10:56 EDT , Service support , Venous Doppler Study 04/03/21 10:15 Interpretation Summary There is no evidence of left lower extremity deep vein thrombosis. Left great saphenous vein appears patent and compressible segmentally. Normal flow patterns right common femoral vein Ordering Physician: Krzysztof Raman Referring Physician: Kang Dickerson Performed By: Ananya Valle RVT Discharge Plan Triage Chief Complaint: Lower Extremity Injury ED Provider: Krzysztof Raman Dx/Rx/DC Orders Clinical Impression: Acute pain of left thigh Instructions: Understanding Lumbar Radiculopathy, ED Muscle Strain, Extremity Prescriptions: New oxycodone-acetaminophen [oxycodone-acetaminophen] 1 TABLET tablet 1 - 2 tab PO Q6H PRN PRN (Reason: Pain) 3 Days Qty: 24 RF: 0 No Action amitriptyline 10 MG tablet 10 mg PO QHS RF: 0 allopurinol 300 MG tablet 300 mg PO DAILY RF: 0 colchicine 0.6 MG tablet 1 tab PO DAILY RF: 0 losartan 100 MG tablet 100 mg PO DAILY RF: 0 hydrocodone-acetaminophen 5-325 mg tablet 1 tab PO PRN PRN (Reason: dental pain) RF: 0 amlodipine 2.5 mg tablet 2.5 mg PO DAILY RF: 0 tamsulosin 0.4 mg capsule 0.4 mg PO DAILY RF: 0 omeprazole 20 mg capsule,delayed release(DR/EC) 20 mg PO DAILY RF: 0 Primary Care Provider: Kang Dickerson Referrals: Kang Dickerson MD [Primary Care Provider] - 3-5 Days Disposition Disposition: Home, Self Care
[2021-04-03] MEDS: 0.9% Normal Saline 1,000 ML 999 ML IV (08:44)
[2021-04-03] MEDS: Morphine 4 MG/ML Syringe IV (08:45)
[2021-04-03 08:59] LABS: Absolute Lymphocyte Count 1.09 X10^3/uL (0.83-4.51); Absolute Neutrophil Count 8.9 X10^3/uL (2.0-7.7); Basophil# 0.05 X10^3/uL; Basophil% 0.5 % (0-1); Eosinophil# 0.01 X10^3/uL; Eosinophils% 0.1 % (0-5); Hematocrit 47.7 % (40-54); Hemoglobin 15.8 g/dL (13.0-16.5); Lymphocyte # 1.09 X10^3/ul (0.83-4.51); Lymphocyte % 10.5 % (19-41); Mean Corp Hgb Conc 33.1 g/dL (32-36); Mean Corpuscular Hgb 28.8 pg (27.0-32.0); Mean Platelet Vol. 10.3 fl (6.2-12.0); Monocyte# 0.33 X10^3/uL; Monocyte% 3.2 % (0-10); NRBC Flagged by Analyzer 0 % (0-5); Neutrophil # 8.89 X10^3/uL (2.7-7.7); Neutrophil % 85.2 % (47-70); Platelet Count 294 K/mm3 (150-450); RBC Distribution Width CV 13.2 % (11.6-14.6); RBC Distribution Width SD 41.8 fl (35.1-43.9); Red Blood Count 5.48 M/mm3 (4.6-6.2); White Blood Count 10.4 K/mm3 (4.4-11.0)
[2021-04-03 09:23] LABS: Anion Gap 7 (5-15); BUN 19 mg/dL (7-18); BUN/Creat Ratio 13.9 RATIO (10-20); Calcium,Total 9.6 mg/dL (8.5-10.1); Chloride 101 mmol/L (98-107); Creatinine, Serum 1.37 mg/dL (0.70-1.30); EST Glomerular Filtration Rate 55 mL/min (>60); Est Glom Filt Rate - Afr Amer 66 mL/min (>60); Estimated Creatinine Clearance 49.93 ml/min; Glucose 147 mg/dL (74-106); Potassium 4.1 mmol/L (3.5-5.1); Sodium Level 135 mmol/L (136-145)
[2021-04-03] MEDS: HYDROmorphone 1 MG/ML Syringe IV ×2 (09:49→12:17)
--- NOTE | 2021-04-03 10:15 | VDLE_ITS ---
Reason For Study: Pain RIGHT LEFT CFV is compressible, spontaneous, phasic, GSV is normal. competent and demonstrates normal CFV is compressible, spontaneous, phasic, augmentation. competent, and demonstrates normal Procedure augmentation. This is a venous duplex using B-mode, color FV is compressible, spontaneous, phasic, flow and spectral Doppler. competent and demonstrates normal Exam performed portable in ED. augmentation. A preliminary report was called and/or faxed POP V is compressible, spontaneous, phasic, to Danisha. competent and demonstrates normal augmentation. T/P Trunk is compressible. PTV is compressible. LT PerV is compressible. VL/Venous Duplex US, Unilateral Interpretation Summary There is no evidence of left lower extremity deep vein thrombosis. Left great s aphenous vein appears patent and compressible segmentally. Normal flow patterns right common femoral vein Ordering Physician: Krzysztof Raman Referring Physician: Kang Dickerson Performed By: Ananya Valle RVT
[2021-04-03 12:38] VITALS: BP 145/86; PULSE 78; RESP 14; O2SAT 96
== END 2021-04-03 12:39 | disposition home or self-care (01) ==
PROVIDERS: Emergency Provider Emergency Medicine; PCP Family Medicine
DX: M79.652 Pain in left thigh (principal); N28.9 Disorder of kidney and ureter, unspecified; I10 Essential (primary) hypertension; I70.0 Atherosclerosis of aorta; I73.9 Peripheral vascular disease, unspecified; K21.9 Gastro-esophageal reflux disease without esophagitis; M79.7 Fibromyalgia; M10.9 Gout, unspecified; J45.909 Unspecified asthma, uncomplicated; Z79.899 Other long term (current) drug therapy
CPT/HCPCS: 73706; 80048; 85025; 93971; 96361; 96374; 96375; 96376; 99283; J7030; Q9967; A4216

== ENCOUNTER → 2021-04-17 08:32 | Outpatient (CLI) | payer MEDICARE, SELFPAY ==
[2021-04-17 08:47] LABS: Bacteria 0 SEEN /hpf (None Seen); Mucous, Urine 0 SEEN /hpf (<or=2+); Red Blood Cells-Urine 0 SEEN /hpf (0-5); Squamous Epithelial Cells - UA 0 SEEN /hpf (0-5); White Blood Cells 0 SEEN /hpf (0-5)
[2021-04-17 10:04] LABS: Absolute Lymphocyte Count 1.57 X10^3/uL (0.83-4.51); Absolute Neutrophil Count 3.6 X10^3/uL (2.0-7.7); Basophil# 0.03 X10^3/uL; Basophil% 0.5 % (0-1); Eosinophil# 0.12 X10^3/uL; Eosinophils% 2.1 % (0-5); Hematocrit 45.5 % (40-54); Lymphocyte # 1.57 X10^3/ul (0.83-4.51); Lymphocyte % 26.9 % (19-41); Mean Corpuscular Hgb 28.8 pg (27.0-32.0); Mean Corpuscular Volume 87.5 fL (80-94); Mean Platelet Vol. 10.3 fl (6.2-12.0); Monocyte# 0.44 X10^3/uL; Monocyte% 7.5 % (0-10); NRBC Flagged by Analyzer 0 % (0-5); Neutrophil # 3.64 X10^3/uL (2.7-7.7); Neutrophil % 62.5 % (47-70); Platelet Count 263 K/mm3 (150-450); RBC Distribution Width CV 13.2 % (11.6-14.6); White Blood Count 5.8 K/mm3 (4.4-11.0)
[2021-04-17 10:07] LABS: Color, Urine Yellow (Yellow); Glucose, Dipstick Normal (Normal); Ketone-Dipstick Negative (Negative); Leukocyte Esterase-Dipstick Negative /ul (Negative); Nitrite-Dipstick Negative (Negative); Occult Blood-Urine 150 /ul (Negative); Protein-Dipstick Negative (Negative); Specific Gravity, Urine 1.015 (1.002-1.030); Urine Bilirubin Dipstick Negative (Negative); Urine Clarity Clear (Clear); Urine Urobilinogen 1 mg/dl (Normal); Urine pH 6.5 (5.0 - 8.0)
[2021-04-17 10:19] LABS: AST(SGOT) 29 U/L (15-37); Alanine Aminotransfer ALT/SGPT 45 U/L (16-61); Albumin, Serum 3.8 g/dL (3.2-5.0); Alkaline Phosphatase 104 U/L (45-117); Anion Gap 7 (5-15); BUN 23 mg/dL (7-18); BUN/Creat Ratio 17.7 RATIO (10-20); Bilirubin, Direct 0.13 mg/dL (0.00-0.30); Calcium,Total 9.5 mg/dL (8.5-10.1); Chloride 106 mmol/L (98-107); Cholesterol 187 mg/dL (200); EST Glomerular Filtration Rate 58 mL/min (>60); Est Glom Filt Rate - Afr Amer 70 mL/min (>60); Glucose 106 mg/dL (74-106); High Density Lipoprotein 44 mg/dL; Potassium 4.1 mmol/L (3.5-5.1); Protein, Total 7.8 g/dL (6.4-8.2); Sodium Level 139 mmol/L (136-145); Triglycerides 136 mg/dL; Very Low Density Lipoprotein 27 mg/dL (5-40)
[2021-04-18 15:07] LABS: Complement C3 132 mg/dL (82-167)
[2021-04-18 21:09] LABS: Anti-Smooth Muscle ABS 23 Units (0-19)
== END ==
PROVIDERS: PCP Family Medicine; Referring Provider Family Medicine; Visit Provider Family Medicine
DX: I10 Essential (primary) hypertension (principal); R76.0 Raised antibody titer; K75.4 Autoimmune hepatitis; Z79.899 Other long term (current) drug therapy; M10.9 Gout, unspecified
CPT/HCPCS: 36415; 80048; 80061; 80076; 81001; 83516; 84550; 85025; 86038; 86160; 86225; 86235

== ENCOUNTER → 2021-04-30 14:12 | Outpatient (CLI) | payer MEDICARE, SELFPAY ==
--- NOTE | 2021-04-30 14:13 | ART_ITS ---
Reason For Study: Posterior leg pain Procedure A bilateral lower extremity continuous wave Doppler with analog waveform analysis and ankle brachial indexes. Left Segmental Pressures Left brachial= 145mmHg. Left posterior tibial artery = 184mmHg. Left dorsalis pedis artery = 165mmHg. Left digit = 161 mmHg. The left dorsalis pedis waveforms are triphasic. The left posterior tibial artery waveforms are triphasic. Right Segmental Pressures Right brachial= 144mmHg. Right posterior tibial artery = 184mmHg. Right dorsalis pedis artery = 169mmHg. Right digit = 165 mmHg. The right dorsalis pedis waveforms are triphasic. The right posterior tibial artery waveforms are triphasic. Indices The right ankle brachial index by the dorsalis pedis is 1.17. The right ankle brachial index by the posterior tibial artery is 1.27. The right digital-brachial index is 1.14. The left ankle brachial index by the dorsalis pedis is 1.14. The left ankle brachial index by the posterior tibial artery is 1.27. The left digital-brachial index is 1.11. VL/Ankle Brachial Index Interpretation Summary Triphasic Doppler waveforms are noted at ankle level bilaterally. Pulse-volume recordings appear satisfactory at ankle and digital levels bilaterally. Resting ankle-brachial in dices are normal bilaterally. Digital-brachial indices are normal bilaterally. There is no evidence of significant arterial occlusive disease in the lower ext remities bilaterally. Ordering Physician: Kang Dickerson Referring Physician: Kang Dickerson Performed By: Ananya Valle RVT
== END ==
PROVIDERS: PCP Family Medicine; Referring Provider Family Medicine; Visit Provider Family Medicine
DX: I73.9 Peripheral vascular disease, unspecified (principal); M79.605 Pain in left leg
CPT/HCPCS: 93922

== ENCOUNTER → 2021-05-12 14:10 | Outpatient (CLI) | payer MEDICARE, SELFPAY | PROVIDERS: PCP Family Medicine; Visit Provider Urology | DX: R97.20 Elevated prostate specific antigen [PSA] (principal) | CPT/HCPCS: 36415; 84153 ==

== ENCOUNTER 2021-07-17 12:30 | Outpatient (RCR) | payer MEDICARE, SELFPAY ==
--- NOTE | 2021-07-01 14:27 | HP.PTEVAL_ITS ---
Patient's Visit Information AQUILES BRENNER is a 71 year old M referred to Physical Therapy by Dr. Sanju Carlos MD with a diagnosis of Lower Leg Pain. Date of Evaluation: 07/01/21 Physical Therapist: Joselyn Ambrosio DPT - Visit Plan Frequency: 2-3x /Week Duration: 3 Weeks Plan: Focus on postural correction- core strength/stabilization and LE strength and flexibility. HEP Given IE: Postural education, supine TA contraction, sitting TA contraction, bridge, hamstring dural flossing 90/90 - Subjective Patient reports he has been having left leg pain for about 2 months. Had an incident in 2017 in [place] and his thigh started throbbing. 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 No pain when he was sitting or laying down. He came back and ely to the MD- took Ibuprofen and then was able to just go away. About 2 months ago- He was fishing and got off the boat and could not walk straight up because of the pain in his leg. He was able to bend forwards and get there. Ended up in the ER- medication injections- steroid prednisone which helped- but does not feel like its normal. He does have buckling of the left LE. The leg is sore but the pain is located in the knee currently. The MD thinks its coming from his spine. He has a dopplar and blood flow test and each were negative. Has not had an MRI or x-rays on his back. The pain does not radiate past the knee. No current back pain. Describes the pain as sharp/stabbing now its more stiff and feels like OA in the knee. No N/T. Has not had any falls to report- but was righted by a few times when the knee gave out. No right side issues. Worst: 4/10 Agg: walking up the stairs, walking (after 10 min), standing (more than 5-10 min). Best: 0/10 Eases: sitting and laying down. When he sits the pain goes away immediately. Sleep: not disturbed at this point- side or back. 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 Has to get the boat in/out of the water. He is a pretty active person. No previous injuries or car accidents to the left LE or lumbar spine. PMHx: Gout, HTN, Sp orts Induced Asthma, Dispensia, Fibromyalgia. Meds: see meds from hospital 04/03/21 - Objective Posture: FH, RS- can correct but is unable to maintain. Gait: no deviation n oted. SLS: 5 sec each side with moderate hip drop. HR/TR: able without LOB and no pain. Sensation: WFL to gross touch bilateral. Reflex:2+ patellar. ROM: Lumbar: flexion: hands to mid thigh with reports of hamstring tightness not back pain, Extn: WFL no pain, SB: WFL, Rotation: WFL. Strength: Core: fair minus, Right: 5/5 throughout, Left: Hip: 4+/5 throughout, Knee: Extn: 4-/5 during testing increased pain Flexion: 4/5, Ankle: 5/5. Flex: HS: severe, Gastroc: severe. Palpation: not tender to touch- no issues with PA glides- tender along lateral quadricep. - Special Tests L/S Slump test left side: Negative L/S Slump test right side: Negative L/S Left Straight Leg Raise: Positive L/S Right Straight Leg Raise: Negative L Hip Scour: Negative L Hip Quadrant - Intraarticular Pathology: Negative L Hip EVANGELIST - Intraarticular Pathology: Positive L Knee Orlando - Meniscus: Negative - Balance/Special Test Scores Lower Extremity Functional Score: 32 - Goals Goal 1:: Patient will be I with HEP and progression Goal Time Frame: 4-6 Weeks Goal 2:: Patient will maintain proper posture t/o tx session to demo increased core s/s Goal Time Frame: 4-6 Weeks Goal 3:: Patient will demo 5/5 strength in left LE Goal Time Frame: 4-6 Weeks Goal 4:: Patient will asc/desc 8 stairs recip with no HR and no pain Goal Time Frame: 4-6 Weeks Goal 5:: Patient will subjectively report 75% or greater % better Goal Time Frame: 4-6 Weeks - Rehabilitation Potential Physical Therapy Diagnosis: Patient presents with hypomobility- he has decreased left LE and core strength/stabilization, flex and muscular endurance leading to poor posture and radicular symptoms decreasing his ability to perform painfree ADL's. Rehabilitation Potential: Fair - Anticipated Interventions Patient/Client Instruction: Educate patient on: Benefits of Fitness Program Therapeutic Exercise to Include: Strength training, Endurance training, Balance training, Coordination, Agility training, Body mechanics, Postural training, Flexibilty training, Neuromotor development, Dynamic Lumbar Stabilization, Panfilo Exercises, Scapular Strength/Stabilization For the Purpose of:: To improve muscle performance and motor function TENS: Yes Cryotherapy (ice pack, ice massage): Yes Thermo therapy (hot pack): Yes Ultrasound (thermal/non thermal): Yes Thank you for the opportunity to evaluate your patient. For Medicare and Medicare HMO plans, please review the plan of care and approve it. It will need to be FAXED BACK to us at [phone] for Medicare purposes. For Medicare only, by signing this I certify the plan of care. Please let me know if there are questions or concerns regarding this plan of care. Physician Signature: Date:
== END 2021-07-17 19:00 | disposition home or self-care (01) ==
LOC: PT 12:30
PROVIDERS: PCP Family Medicine; Visit Provider Internal Medicine Rheumatology
DX: S86.112D Strain of other muscle(s) and tendon(s) of posterior muscle group at lower leg level, left leg, subsequent encounter (principal); X58.XXXD Exposure to other specified factors, subsequent encounter
CPT/HCPCS: 97110; 97162

== ENCOUNTER 2021-08-13 14:35 | Outpatient (CLI) | payer MEDICARE, SELFPAY ==
[2021-08-13 15:11] LABS: Mucous, Urine 0 SEEN /hpf (<or=2+); Squamous Epithelial Cells - UA 0 SEEN /hpf (0-5)
[2021-08-13 17:51] LABS: Absolute Lymphocyte Count 1.57 X10^3/uL (0.83-4.51); Basophil# 0.05 X10^3/uL; Basophil% 0.8 % (0-1); Eosinophil# 0.09 X10^3/uL; Eosinophils% 1.5 % (0-5); Hematocrit 46.3 % (40-54); Hemoglobin 15.8 g/dL (13.0-16.5); Lymphocyte # 1.57 X10^3/ul (0.83-4.51); Lymphocyte % 25.5 % (19-41); Mean Corp Hgb Conc 34.1 g/dL (32-36); Mean Corpuscular Hgb 29.7 pg (27.0-32.0); Mean Platelet Vol. 10.8 fl (6.2-12.0); Monocyte# 0.48 X10^3/uL; Monocyte% 7.8 % (0-10); NRBC Flagged by Analyzer 0 % (0-5); Neutrophil # 3.95 X10^3/uL (2.7-7.7); Neutrophil % 64.1 % (47-70); Platelet Count 297 K/mm3 (150-450); RBC Distribution Width CV 13.2 % (11.6-14.6); RBC Distribution Width SD 41.1 fl (35.1-43.9); Red Blood Count 5.32 M/mm3 (4.6-6.2); White Blood Count 6.2 K/mm3 (4.4-11.0)
[2021-08-13 18:09] LABS: Color, Urine Yellow (Yellow); Glucose, Dipstick Normal (Normal); Ketone-Dipstick 5 mg/dl (Negative); Leukocyte Esterase-Dipstick 25 /ul (Negative); Nitrite-Dipstick Negative (Negative); Occult Blood-Urine 25 /ul (Negative); Protein-Dipstick 15 mg/dl (Negative); Urine Bilirubin Dipstick Negative (Negative); Urine Clarity Clear (Clear); Urine Urobilinogen Normal (Normal)
[2021-08-13 18:18] LABS: Red Blood Cells-Urine 0-5 SEEN /hpf (0-5); White Blood Cells 0-5 SEEN /hpf (0-5)
[2021-08-13 18:19] LABS: Bacteria 1+ /hpf (None Seen)
[2021-08-13 18:50] LABS: AST(SGOT) 27 U/L (15-37); Alanine Aminotransfer ALT/SGPT 40 U/L (16-61); Albumin, Serum 3.9 g/dL (3.2-5.0); Alkaline Phosphatase 108 U/L (45-117); Bilirubin, Direct 0.12 mg/dL (0.00-0.30); Creatinine, Serum 1.21 mg/dL (0.70-1.30); EST Glomerular Filtration Rate 63 mL/min (>60); Est Glom Filt Rate - Afr Amer 76 mL/min (>60); Globulin 4.1 g/dL (2.2-4.2); Uric Acid 3.9 mg/dL (3.5-7.2)
[2021-08-15 16:08] LABS: Complement C3 138 mg/dL (82-167)
[2021-08-15 18:20] LABS: Anti-Smooth Muscle ABS 12 Units (0-19)
[2021-08-16 16:07] LABS: Anti-Centromere B Ab <0.2 AI (0.0-0.9); Anti-Chromatin <0.2 AI (0.0-0.9); Anti-Jo <0.2 AI (0.0-0.9); Anti-Scleroderma-70 AB <0.2 AI (0.0-0.9); Anti-ribosomal P Antibodies <0.2 AI (0.0-0.9); RNP Ab <0.2 AI (0.0-0.9); SJOGREN'S Anti-SS-A test < 0.2 AI (0.0-0.9); SJOGREN'S Anti-SS-B test 0.7 AI (0.0-0.9); Smith Ab <0.2 AI (0.0-0.9); Smith/RNP Ab <0.2 AI (0.0-0.9)
[2021-08-16 16:15] LABS: Anti-dsDNA Ab <1 IU/mL (0-9)
== END 2021-08-13 23:59 | disposition home or self-care (01) ==
LOC: MTLAB 14:41
PROVIDERS: PCP Family Medicine; Referring Provider Internal Medicine Rheumatology; Visit Provider Internal Medicine Rheumatology
DX: R76.0 Raised antibody titer (principal); K75.4 Autoimmune hepatitis; Z79.899 Other long term (current) drug therapy; M10.9 Gout, unspecified
CPT/HCPCS: 36415; 80076; 81001; 82565; 83516; 84550; 85025; 86038; 86160; 86225; 86235

== ENCOUNTER 2021-08-24 13:24 | Outpatient (CLI) | payer MEDICARE, SELFPAY ==
--- NOTE | 2021-08-24 13:28 | RAD_ITS ---
STUDY: X-RAY - LEFT KNEE REASON FOR EXAM: Male, 71 years old. Pain. Evaluate for osteoarthrosis. TECHNIQUE: 3 view(s) of the knee. COMPARISON: None. FINDINGS: Osteopenia. Normal visualized distal femur. Normal visualized proximal tibia and fibula. Normal proximal tibiofibular articulation. Normal medial femorotibial compartment. Normal lateral femorotibial compartment. Normal patellofemoral articulation. The soft tissue structures are unremarkable. RAD/Knee 3 Views IMPRESSION: Osteopenia. No other abnormality. Electronically Signed: Stewart Rosenberg MD at 9:23 EST ,
== END 2021-08-24 23:59 | disposition home or self-care (01) ==
LOC: MTRAD 13:26
PROVIDERS: PCP Family Medicine; Referring Provider Internal Medicine Rheumatology; Visit Provider Internal Medicine Rheumatology
DX: M17.12 Unilateral primary osteoarthritis, left knee (principal)
CPT/HCPCS: 73562

== ENCOUNTER 2021-09-15 08:53 | Outpatient (RCR) | payer MEDICARE, SELFPAY ==
--- NOTE | 2021-09-15 11:30 | HP.PTEVAL_ITS ---
Patient's Visit Information AQUILES BRENNER is a 71 year old M referred to Physical Therapy by Dr. Sanju Carlos MD with a diagnosis of UNILTAERL PRIMARY OSTEOARTHRITIS. Date of Evaluation: 09/15/21 Physical Therapist: Cory Howell, PT, Cert MDT, OCS - Visit Plan Frequency: 1-2x /Week Duration: 4 Weeks Plan: PT INTERVETIONS FOR HEP FOR STREENGTHENING QUADS/HAMS AND FUNCTIONAL STRENGTHENIING - Subjective This 71 y/o female presents to physical therapy with left knee pain .Patient has left knee pain for ~ 5 months. Patient noticed knee pain when giving way with knee giving way x2. Patient seen DR x-rays mild DJD . Pain located global jovita cribed as soreness,. Aggravating factors stairs ,squatting ,kneeling extended walking /standing. Alleviating factors rest. Denies paresthesia/tingling . Patient sleeps okay. Patient goals to get stronger and less pain. Patient had left hip pain last year and had PT. No meds. SOCAIL: . VOCATION: RETIRED - Objective POSTURE: WFL. EDEMA: absent. GAIT: reciprocal pattern. PALAPTION: unremarkable. AROM: 0-140 knee flexion. MMT (peak force) : quads left 38.9,right 44.6,hamstrings left 30,3,right 31.3. FLEXABLITY: hamstrings min tight - Special Tests L Knee Orlando - Meniscus: Negative L Knee Bob - ACL: Negative L Knee Anterior Drawer - ACL: Negative L Knee Posterior Drawer - PCL: Negative L Knee Valgus - MCL: Negative L Knee Varus - LCL: Negative - Balance/Special Test Scores Lower Extremity Functional Score: 47 - Goals Goal 1:: Patient to be I with HEP for knee Goal Time Frame: 2-4 Weeks Goal 2:: Patient demonstrate 75% improvement with function and ADLS with no pain. Goal Time Frame: 4-6 Weeks Goal 3:: Patient to improve LFES core by 5 -10 points to improve function Goal Time Frame: 4-6 Weeks Goal 4:: Patient improve peak force quads/hams by 5 to improve gait Goal Time Frame: 4-6 Weeks - Rehabilitation Potential Physical Therapy Diagnosis: This patient has knee pain with mild DJD with weakness impairs functional mobility thus will thus will need skilled PT Rehabilitation Potential: Good - Anticipated Interventions Patient/Client Instruction: Educate patient on: Condition, Plan of Care For the Purpose of:: To decrease pain, To increase ROM, To improve muscle performance and motor function, To increase tolerance to activity/condition/position, To improve ability of physical actions for home/community/work/leisure, To improve health of tissue, To decrease soft tissue restriction, To increase flexibility/ROM, To prevent re-injury Therapeutic Exercise to Include: Strength training, Power training, Endurance training, Flexibilty training, Passive ROM, Active ROM For the Purpose of:: To decrease pain, To increase ROM, To improve muscle performance and motor function, To improve ability to perform ADL's, To increase tolerance to activity/condition/position, To improve ability of physical actions for home/community/work/leisure, To improve health of tissue, To decrease soft tissue restriction, To increase flexibility/ROM Thank you for the opportunity to evaluate your patient. For Medicare and Medicare HMO plans, please review the plan of care and approve it. It will need to be FAXED BACK to us at [phone] for Medicare purposes. For Medicare only, by signing this I certify the plan of care. Please let me know if there are questions or concerns regarding this plan of care. Physician Signature: Date:
--- NOTE | 2022-02-24 13:47 | HP.PT.NRP ---
AQUILES BRENNER was seen in my office for initial evaluation on 09/15/21. The following Plan of Care was established for this patient: Initial Frequency: 1-2x /Week Initial Duration: 4 Weeks Patient/Client Instruction: Educate patient on: Condition, Plan of Care For the Purpose of:: To decrease pain, To increase ROM, To improve muscle performance and motor function, To increase tolerance to activity/condition/position, To improve ability of physical actions for home/community/work/leisure, To improve health of tissue, To decrease soft tissue restriction, To increase flexibility/ROM, To prevent re-injury Therapeutic Exercise to Include: Strength training, Power training, Endurance training, Flexibilty training, Passive ROM, Active ROM For the Purpose of:: To decrease pain, To increase ROM, To improve muscle performance and motor function, To improve ability to perform ADL's, To increase tolerance to activity/condition/position, To improve ability of physical actions for home/community/work/leisure, To improve health of tissue, To decrease soft tissue restriction, To increase flexibility/ROM This patient was last seen in our office . Pertinent comments regarding their Physical therapy will appear below: Patient was seen for PT for right knee pain for HEP thus is d/c At this point I will be discontinuing this patient from physical therapy. I would be happy to see this patient again in the future if found appropriate by the physician. Thank you! Cory Howell, PT, Cert MDT, OCS Balance/Gait/Functional tests - Balance/Special Test Scores Lower Extremity Functional Score: 47
== END 2021-09-15 19:00 | disposition home or self-care (01) ==
LOC: PT 08:53
PROVIDERS: PCP Family Medicine; Referring Provider Internal Medicine Rheumatology; Visit Provider Internal Medicine Rheumatology
DX: M17.12 Unilateral primary osteoarthritis, left knee (principal)
CPT/HCPCS: 97110; 97162

== ENCOUNTER → 2021-11-18 | Outpatient (CLI) | payer MEDICARE, SELFPAY ==
[2021-11-18 12:37] LABS: Anion Gap 8 (5-15); BUN 16 mg/dL (7-18); BUN/Creat Ratio 13.9 RATIO (10-20); Calcium,Total 9.2 mg/dL (8.5-10.1); Chloride 104 mmol/L (98-107); Cholesterol 171 mg/dL (200); Creatinine, Serum 1.15 mg/dL (0.70-1.30); EST Glomerular Filtration Rate 67 mL/min (>60); Est Glom Filt Rate - Afr Amer 81 mL/min (>60); Glucose 101 mg/dL (74-106); High Density Lipoprotein 39 mg/dL; Potassium 3.9 mmol/L (3.5-5.1); Sodium Level 139 mmol/L (136-145); Triglycerides 161 mg/dL; Very Low Density Lipoprotein 32 mg/dL (5-40)
[2021-11-18 12:39] LABS: PSA,Total- Diagnostic 8.74 ng/mL (0.0-4.0)
== END | disposition home or self-care (01) ==
LOC: MTLAB 10:18
PROVIDERS: Urology; PCP Family Medicine; Referring Provider Family Medicine; Visit Provider Family Medicine
DX: R97.20 Elevated prostate specific antigen [PSA] (principal); I10 Essential (primary) hypertension
CPT/HCPCS: 36415; 80048; 80061; 84153

== ENCOUNTER → 2022-03-26 | Outpatient (CLI) | payer MEDICARE, SELFPAY | END | disposition home or self-care (01) | PROVIDERS: PCP Family Medicine; Referring Provider Urology; Visit Provider Urology | DX: Z01.810 Encounter for preprocedural cardiovascular examination (principal) | CPT/HCPCS: 93005 ==

== ENCOUNTER → 2022-04-01 | Outpatient (CLI) | payer MEDICARE, SELFPAY ==
[2022-04-01 10:19] LABS: Hematocrit 45.6 % (40-54); Hemoglobin 15.5 g/dL (13.0-16.5); Mean Corpuscular Hgb 30.1 pg (27.0-32.0); Mean Corpuscular Volume 88.5 fL (80-94); Mean Platelet Vol. 10.6 fl (6.2-12.0); Platelet Count 244 K/mm3 (150-450); RBC Distribution Width CV 13.4 % (11.6-14.6); RBC Distribution Width SD 43.9 fl (35.1-43.9); Red Blood Count 5.15 M/mm3 (4.6-6.2); White Blood Count 6.3 K/mm3 (4.4-11.0)
[2022-04-01 11:07] LABS: Anion Gap 9 (5-15); BUN 19 mg/dL (7-18); BUN/Creat Ratio 17.3 RATIO (10-20); Calcium,Total 9.4 mg/dL (8.5-10.1); Chloride 106 mmol/L (98-107); EST Glomerular Filtration Rate 70 mL/min (>60); Est Glom Filt Rate - Afr Amer 85 mL/min (>60); Glucose 113 mg/dL (74-106); Potassium 4.1 mmol/L (3.5-5.1); Sodium Level 140 mmol/L (136-145)
== END | disposition home or self-care (01) ==
LOC: LAB 09:36
PROVIDERS: PCP Family Medicine; Referring Provider Urology; Visit Provider Urology
DX: Z01.812 Encounter for preprocedural laboratory examination (principal)
CPT/HCPCS: 36415; 80048; 85027

== ENCOUNTER → 2022-04-12 | Outpatient (CLI) | payer MEDICARE, SELFPAY ==
--- NOTE | 2022-04-12 | PROSBIL_PTH ---
PATIENT: AQUILES BRENNER [facility] U#:[id number] AGE/SX: 71/M ROOM: RE04/12/[address]: Dr. Braydon Hills MD : 1950 BED: DIS: 04/12/2022 SPEC #: [id number] RECD: 04/12/22 15:07 STATUS: BRIAN MELENDEZ #: [id number] SHAWN: 04/12/22 00:[address]: Braydon Hills DEPT: SURGICAL PATHOLOGY RECD BY: Drew Angulo ENTERED: 04/13/22 09:14 SP TYPE: PROST BX JOSE MARTIN DR: Dr. Kang Dickerson MD [facility] Tissues: A - PROSTATE RIGHT B - PROSTATE RIGHT C - PROSTATE RIGHT D - PROSTATE LEFT E - PROSTATE LEFT F - PROSTATE LEFT Procedures: PROSTATE BX HEADER OPERATION: Ultrasound-guided prostate biopsy PRE-OP DIAGNOSIS: Elevated PSA TISSUE SUBMITTED: A - Right base, B - Right mid, C - Right apex, D - Left base, E - Left mid, F - Left apex MICROSCOPIC DIAGNOSIS A. Right prostate, base, core biopsy: Glandular atrophy and mild chronic inflammation. B. Right prostate, mid, core biopsy: Chronic glandular atrophy and chronic inflammation. C. Right prostate, apex, core biopsy: Glandular atrophy and mild chronic inflammation. D. Left prostate, base, core biopsy: Benign stromal nodule. Minimal chronic inflammation. E. Left prostate, mid, core biopsy: Glandular atrophy and chronic inflammation. See comment. F. Left prostate, apex, core biopsy: Glandular atrophy and chronic inflammation. AM:audra 04/14/2022 COMMENT E. Immunohistochemistry ([id number]) supports the above diagnosis. MICROSCOPIC DESCRIPTION Slides are reviewed. GROSS DESCRIPTION A - Received is one container designated prostate, right base. The specimen consists of two elongated fragments of light dave-white soft tissue each measuring 1 cm in length and 0.1 cm in diameter. The specimen is totally submitted in one cassette. B - Received is one container designated prostate, right mid. The specimen consists of two elongated fragments of light dave-white soft tissue each measuring 1.5 cm in length and 0.1 cm in diameter. The specimen is totally submitted in one cassette. C - Received is one container designated prostate, right apex. The specimen consists of two elongated fragments of light dave-white soft tissue each measuring 1 cm in length and 0.1 cm in diameter. The specimen is totally submitted in one cassette. D - Received is one container designated prostate, left base. The specimen consists of two elongated fragments of light dave-white soft tissue each measuring 1.5 cm in length and 0.1 cm in diameter. The specimen is totally submitted in one cassette. E - Received is one container designated prostate, left mid. The specimen consists of two elongated fragments of light dave-white soft tissue each measuring 1.5 cm in length and 0.1 cm in diameter. The specimen is totally submitted in one cassette. F - Received is one container designated prostate, left apex. The specimen consists of two elongated fragments of light dave-white soft tissue each measuring 1.5 cm in length and 0.1 cm in diameter. The specimen is totally submitted in one cassette. / AM:audra 04/13/2022 TC:3 CPT: G0146
--- NOTE | 2022-04-12 | IMM_PTH ---
PATIENT: AQUILES BRENNER [facility] U#:[id number] AGE/SX: 71/M ROOM: RE04/12/[address]: Dr. Braydon Hills MD : 1950 BED: DIS: 04/12/2022 SPEC #: [id number] RECD: 04/14/22 13:13 STATUS: BRIAN REQ #: [id number] SHAWN: 04/12/22 00:[address]: Braydon Hills DEPT: IMMUNOHISTOCHEMISTRY RECD BY: Anni Jane ENTERED: 04/14/22 13:14 SP TYPE: IMMUNO OTHR DR: Dr. Kang Dickerson MD Tissues: E - PROSTATE LEFT Procedures: P40 (add) 34BE12 (initial) PHYSICIAN & INSTITUTION [place] [id number] SPECIMEN INFORMATION: Tissue Source: E ? Left prostate, mid, core biopsy Clinical Info: Elevated PSA Specimen Number: [id number] CPT code: 16854, 39327 METHODOLOGY: Deparaffinized sections of prefer/formalin-fixed tissue or PAP/DQ stained slides are incubated with monoclonal/polyclonal antibodies/oligonucleotide probes. Localization is made via biotin free immunoperoxidase method. Appropriate controls are performed and reacted as expected. Results on target cell population are indicated in the following table: RESULTS: ANTIBODY / CLONE RESULT Block E P40 (BC28) positive 34BE12 (34BE12) positive These tests were developed and their performance characteristics determined by [facility]. They may not have been cleared or approved by the U.S. Food and Drug Administration. The FDA has determined that such clearance or approval is not necessary. The above immunohistochemical/dualISH markers are ordered and reviewed by the Pathologist. INTERPRETATION: E. Left prostate, mid, core biopsy: No evidence of carcinoma. AM:audra 04/15/2022
== END | disposition home or self-care (01) ==
PROVIDERS: PCP Family Medicine; Visit Provider Urology
DX: R97.20 Elevated prostate specific antigen [PSA] (principal)
CPT/HCPCS: 88305; 88341; 88342; G0416

== ENCOUNTER → 2022-04-14 | Outpatient (CLI) | payer MEDICARE, SELFPAY ==
[2022-04-14 13:48] LABS: Bacteria 0 SEEN /hpf (None Seen); Mucous, Urine 0 SEEN /hpf (<or=2+)
[2022-04-14 14:56] LABS: Color, Urine Yellow (Yellow); Glucose, Dipstick Normal (Normal); Ketone-Dipstick 5 mg/dl (Negative); Leukocyte Esterase-Dipstick 25 /ul (Negative); Nitrite-Dipstick Negative (Negative); Occult Blood-Urine 150 /ul (Negative); Protein-Dipstick Negative (Negative); Specific Gravity, Urine 1.015 (1.002-1.030); Urine Bilirubin Dipstick Negative (Negative); Urine Clarity Sl. Cloudy (Clear); Urine Urobilinogen Normal (Normal); Urine pH 6.5 (5.0 - 8.0)
[2022-04-14 14:58] LABS: Erythrocyte Sedimentation Rate 16 mm/hr (0-20)
[2022-04-14 15:00] LABS: Absolute Lymphocyte Count 1.85 X10^3/uL (0.83-4.51); Absolute Neutrophil Count 5.5 X10^3/uL (2.0-7.7); Basophil# 0.03 X10^3/uL; Basophil% 0.4 % (0-1); Eosinophil# 0.12 X10^3/uL; Eosinophils% 1.5 % (0-5); Hematocrit 45.4 % (40-54); Hemoglobin 15.3 g/dL (13.0-16.5); Lymphocyte # 1.85 X10^3/ul (0.83-4.51); Lymphocyte % 22.7 % (19-41); Mean Corp Hgb Conc 33.7 g/dL (32-36); Mean Corpuscular Hgb 29.5 pg (27.0-32.0); Mean Corpuscular Volume 87.6 fL (80-94); Mean Platelet Vol. 10.7 fl (6.2-12.0); Monocyte# 0.58 X10^3/uL; Monocyte% 7.1 % (0-10); NRBC Flagged by Analyzer 0 % (0-5); Neutrophil # 5.53 X10^3/uL (2.7-7.7); Neutrophil % 67.9 % (47-70); Platelet Count 264 K/mm3 (150-450); RBC Distribution Width CV 13.7 % (11.6-14.6); RBC Distribution Width SD 43.9 fl (35.1-43.9); Red Blood Count 5.18 M/mm3 (4.6-6.2); White Blood Count 8.1 K/mm3 (4.4-11.0)
[2022-04-14 15:05] LABS: Red Blood Cells-Urine 10-25 SEEN /hpf (0-5); Squamous Epithelial Cells - UA 0-5 SEEN /hpf (0-5); White Blood Cells 0-5 SEEN /hpf (0-5)
[2022-04-14 15:42] LABS: AST(SGOT) 15 U/L (15-37); Alanine Aminotransfer ALT/SGPT 26 U/L (16-61); Albumin, Serum 3.9 g/dL (3.2-5.0); Alkaline Phosphatase 100 U/L (45-117); Bilirubin, Direct 0.13 mg/dL (0.00-0.30); CRP 6.58 mg/L (0.0-3.0); Creatinine, Serum 1.34 mg/dL (0.70-1.30); EST Glomerular Filtration Rate 56 mL/min (>60); Est Glom Filt Rate - Afr Amer 68 mL/min (>60); Globulin 3.9 g/dL (2.2-4.2); Protein, Total 7.8 g/dL (6.4-8.2); Uric Acid 4.3 mg/dL (3.5-7.2)
[2022-04-16 13:07] LABS: Complement C3 129 mg/dL (82-167)
[2022-04-17 09:46] LABS: Anti-Smooth Muscle ABS 25 Units (0-19)
== END | disposition home or self-care (01) ==
LOC: LAB 13:41
PROVIDERS: PCP Family Medicine; Visit Provider Internal Medicine Rheumatology
DX: M10.9 Gout, unspecified (principal); K75.4 Autoimmune hepatitis; R76.0 Raised antibody titer; Z79.899 Other long term (current) drug therapy
CPT/HCPCS: 36415; 80076; 81001; 82565; 83516; 84550; 85025; 85652; 86038; 86140; 86160; 86225

== ENCOUNTER → 2022-04-26 | Outpatient (CLI) | payer MEDICARE, SELFPAY ==
--- NOTE | 2022-04-26 11:06 | RAD_ITS ---
EXAM: XR CERVICAL SPINE, 6 OR MORE VIEWS CLINICAL INDICATION: CERVICALGIA TECHNIQUE: Frontal, lateral, oblique and flexion/extension views of the cervical spine. This report was created using Spectrum5 report Coinkite technology. COMPARISON: None. FINDINGS: VERTEBRAE: There is no change in alignment with flexion or extension views. Preserved vertebral body height. No acute fracture. No spondylolisthesis. Preservation of the normal cervical lordosis. No significant facet arthropathy. DISC SPACES: There is disc space narrowing C5-6. Oblique views show mild bony neural foraminal narrowing on the right at C5-6. SOFT TISSUES: Unremarkable. No prevertebral soft tissue widening. LUNG APICES: Clear. RAD/Cerv Spine Obl/Flex/Ext Comp IMPRESSION: 1. No acute osseous abnormalities of the cervical spine. 2. Degenerative changes at C5-6 with disc space narrowing. Electronically Signed: Carl Cuellar MD at 23:56 EST ,
[2022-04-26 11:18] LABS: Bacteria 0 SEEN /hpf (None Seen); Mucous, Urine 0 SEEN /hpf (<or=2+); Red Blood Cells-Urine 0 SEEN /hpf (0-5); Squamous Epithelial Cells - UA 0 SEEN /hpf (0-5); White Blood Cells 0 SEEN /hpf (0-5)
[2022-04-26 12:29] LABS: Erythrocyte Sedimentation Rate 29 mm/hr (0-20)
[2022-04-26 12:42] LABS: BUN 15 mg/dL (7-18); CRP 2.98 mg/L (0.0-3.0); Creatinine, Serum 1.16 mg/dL (0.70-1.30); EST Glomerular Filtration Rate 66 mL/min (>60); Est Glom Filt Rate - Afr Amer 80 mL/min (>60)
[2022-04-26 15:33] LABS: Color, Urine Yellow (Yellow); Glucose, Dipstick Normal (Normal); Ketone-Dipstick Negative (Negative); Leukocyte Esterase-Dipstick 25 /ul (Negative); Nitrite-Dipstick Negative (Negative); Occult Blood-Urine 50 /ul (Negative); Protein-Dipstick Negative (Negative); Urine Bilirubin Dipstick Negative (Negative); Urine Clarity Clear (Clear); Urine Urobilinogen Normal (Normal)
== END | disposition home or self-care (01) ==
PROVIDERS: PCP Family Medicine; Referring Provider Internal Medicine Rheumatology; Visit Provider Internal Medicine Rheumatology
DX: M10.9 Gout, unspecified (principal); R94.4 Abnormal results of kidney function studies; R82.90 Unspecified abnormal findings in urine; M54.2 Cervicalgia
CPT/HCPCS: 36415; 72052; 81001; 82565; 84520; 85652; 86140; 87086

== ENCOUNTER → 2022-08-20 | Outpatient (CLI) | payer MEDICARE, SELFPAY ==
[2022-08-20 15:05] LABS: Bacteria 0 SEEN /hpf (None Seen); Mucous, Urine 0 SEEN /hpf (<or=2+); Squamous Epithelial Cells - UA 0 SEEN /hpf (0-5); White Blood Cells 0 SEEN /hpf (0-5)
[2022-08-20 17:42] LABS: Absolute Lymphocyte Count 1.72 X10^3/uL (0.83-4.51); Absolute Neutrophil Count 4.4 X10^3/uL (2.0-7.7); Basophil# 0.04 X10^3/uL; Basophil% 0.6 % (0-1); Eosinophil# 0.07 X10^3/uL; Eosinophils% 1.1 % (0-5); Hemoglobin 15.8 g/dL (13.0-16.5); Lymphocyte # 1.72 X10^3/ul (0.83-4.51); Lymphocyte % 25.9 % (19-41); Mean Corp Hgb Conc 33.6 g/dL (32-36); Mean Corpuscular Volume 86.4 fL (80-94); Mean Platelet Vol. 10.4 fl (6.2-12.0); Monocyte# 0.43 X10^3/uL; Monocyte% 6.5 % (0-10); NRBC Flagged by Analyzer 0 % (0-5); Neutrophil # 4.37 X10^3/uL (2.7-7.7); Neutrophil % 65.7 % (47-70); Platelet Count 275 K/mm3 (150-450); RBC Distribution Width CV 13.4 % (11.6-14.6); RBC Distribution Width SD 41.7 fl (35.1-43.9); Red Blood Count 5.44 M/mm3 (4.6-6.2); White Blood Count 6.6 K/mm3 (4.4-11.0)
[2022-08-20 17:45] LABS: Color, Urine Yellow (Yellow); Glucose, Dipstick Normal (Normal); Ketone-Dipstick Negative (Negative); Leukocyte Esterase-Dipstick 25 /ul (Negative); Nitrite-Dipstick Negative (Negative); Occult Blood-Urine 50 /ul (Negative); Protein-Dipstick 15 mg/dl (Negative); Urine Bilirubin Dipstick Negative (Negative); Urine Clarity Clear (Clear); Urine Urobilinogen Normal (Normal)
[2022-08-20 17:58] LABS: Red Blood Cells-Urine 0-5 SEEN /hpf (0-5)
[2022-08-20 18:05] LABS: AST(SGOT) 27 U/L (15-37); Alanine Aminotransfer ALT/SGPT 35 U/L (16-61); Alkaline Phosphatase 93 U/L (45-117); BUN 23 mg/dL (7-18); Bilirubin, Direct 0.14 mg/dL (0.00-0.30); Creatinine, Serum 1.18 mg/dL (0.70-1.30); EST Glomerular Filtration Rate 65 mL/min (>60); Est Glom Filt Rate - Afr Amer 78 mL/min (>60); Uric Acid 3.9 mg/dL (3.5-7.2)
[2022-08-22 14:06] LABS: Complement C3 129 mg/dL (82-167)
[2022-08-24 15:19] LABS: Anti-Nuclear Antibody Test Negative (.); Anti-dsDNA Ab <1 IU/mL (0-9)
== END | disposition home or self-care (01) ==
LOC: MTLAB 15:01
PROVIDERS: PCP Family Medicine; Referring Provider Internal Medicine Rheumatology; Visit Provider Internal Medicine Rheumatology
DX: R76.0 Raised antibody titer (principal); R82.90 Unspecified abnormal findings in urine; M10.9 Gout, unspecified; R94.4 Abnormal results of kidney function studies; Z79.899 Other long term (current) drug therapy
CPT/HCPCS: 36415; 80076; 81001; 82565; 84520; 84550; 85025; 86038; 86160; 86225; 87086

== ENCOUNTER → 2022-09-30 | Outpatient (CLI) | payer MEDICARE, SELFPAY ==
[2022-09-30 10:47] LABS: Anion Gap 5 (5-15); BUN 22 mg/dL (7-18); BUN/Creat Ratio 19.8 RATIO (10-20); Calcium,Total 9.7 mg/dL (8.5-10.1); Chloride 106 mmol/L (98-107); Cholesterol 206 mg/dL (200); Creatinine, Serum 1.11 mg/dL (0.70-1.30); EST Glomerular Filtration Rate 70 mL/min (>60); Est Glom Filt Rate - Afr Amer 84 mL/min (>60); Glucose 122 mg/dL (74-106); High Density Lipoprotein 45 mg/dL; Potassium 3.6 mmol/L (3.5-5.1); Sodium Level 138 mmol/L (136-145); Triglycerides 235 mg/dL; Very Low Density Lipoprotein 47 mg/dL (5-40)
== END | disposition home or self-care (01) ==
LOC: MFPLAB 09:29
PROVIDERS: PCP Family Medicine; Referring Provider Family Medicine; Visit Provider Family Medicine
DX: I10 Essential (primary) hypertension (principal)
CPT/HCPCS: 36415; 80048; 80061

== ENCOUNTER → 2022-10-19 | Outpatient (CLI) | payer MEDICARE, SELFPAY ==
[2022-10-19 13:41] LABS: PSA,Total- Diagnostic 3.75 ng/mL (0.0-4.0)
== END | disposition home or self-care (01) ==
LOC: LAB 11:33
PROVIDERS: PCP Family Medicine; Referring Provider Urology; Visit Provider Urology
DX: N40.1 Benign prostatic hyperplasia with lower urinary tract symptoms (principal)
CPT/HCPCS: 36415; 84153

== ENCOUNTER → 2022-12-17 | Outpatient (CLI) | payer MEDICARE, SELFPAY ==
[2022-12-17 09:25] LABS: Bacteria 0 SEEN /hpf (None Seen); Mucous, Urine 0 SEEN /hpf (<or=2+); Red Blood Cells-Urine 0 SEEN /hpf (0-5); Squamous Epithelial Cells - UA 0 SEEN /hpf (0-5)
[2022-12-17 11:04] LABS: Color, Urine Yellow (Yellow); Glucose, Dipstick Normal (Normal); Ketone-Dipstick Negative (Negative); Leukocyte Esterase-Dipstick 25 /ul (Negative); Nitrite-Dipstick Negative (Negative); Occult Blood-Urine 25 /ul (Negative); Protein-Dipstick Negative (Negative); Specific Gravity, Urine 1.015 (1.002-1.030); Urine Bilirubin Dipstick Negative (Negative); Urine Clarity Clear (Clear); Urine Urobilinogen Normal (Normal)
[2022-12-17 11:05] LABS: White Blood Cells 0-5 SEEN /hpf (0-5)
[2022-12-17 11:18] LABS: Absolute Lymphocyte Count 1.77 X10^3/uL (0.83-4.51); Absolute Neutrophil Count 4.4 X10^3/uL (2.0-7.7); Basophil# 0.03 X10^3/uL; Basophil% 0.4 % (0-1); Eosinophil# 0.06 X10^3/uL; Eosinophils% 0.9 % (0-5); Hematocrit 46.5 % (40-54); Hemoglobin 15.4 g/dL (13.0-16.5); Lymphocyte # 1.77 X10^3/ul (0.83-4.51); Lymphocyte % 25.7 % (19-41); Mean Corp Hgb Conc 33.1 g/dL (32-36); Mean Corpuscular Hgb 29.4 pg (27.0-32.0); Mean Corpuscular Volume 88.9 fL (80-94); Mean Platelet Vol. 10.9 fl (6.2-12.0); Monocyte# 0.59 X10^3/uL; Monocyte% 8.6 % (0-10); NRBC Flagged by Analyzer 0 % (0-5); Neutrophil # 4.41 X10^3/uL (2.7-7.7); Platelet Count 282 K/mm3 (150-450); RBC Distribution Width CV 13.3 % (11.6-14.6); RBC Distribution Width SD 43.5 fl (35.1-43.9); Red Blood Count 5.23 M/mm3 (4.6-6.2); White Blood Count 6.9 K/mm3 (4.4-11.0)
[2022-12-17 11:56] LABS: AST(SGOT) 20 U/L (15-37); Alanine Aminotransfer ALT/SGPT 30 U/L (16-61); Albumin, Serum 3.7 g/dL (3.2-5.0); Alkaline Phosphatase 101 U/L (45-117); BUN 22 mg/dL (7-18); Bilirubin, Direct 0.11 mg/dL (0.00-0.30); Creatinine, Serum 1.23 mg/dL (0.70-1.30); EST Glomerular Filtration Rate 62 mL/min (>60); Est Glom Filt Rate - Afr Amer 75 mL/min (>60); Globulin 3.9 g/dL (2.2-4.2); Protein, Total 7.6 g/dL (6.4-8.2); Uric Acid 4.5 mg/dL (3.5-7.2)
== END | disposition home or self-care (01) ==
LOC: MTLAB 09:22
PROVIDERS: PCP Family Medicine; Referring Provider Internal Medicine Rheumatology; Visit Provider Internal Medicine Rheumatology
DX: M10.9 Gout, unspecified (principal); K75.4 Autoimmune hepatitis; R94.4 Abnormal results of kidney function studies; Z79.899 Other long term (current) drug therapy; R82.90 Unspecified abnormal findings in urine
CPT/HCPCS: 36415; 80076; 81001; 82565; 84520; 84550; 85025; 87086; 87088

== ENCOUNTER → 2023-02-07 | Outpatient (CLI) | payer MEDICARE, SELFPAY ==
[2023-02-07 13:39] LABS: Anion Gap 9 (5-15); BUN 22 mg/dL (7-18); BUN/Creat Ratio 18.8 RATIO (10-20); Calcium,Total 9.2 mg/dL (8.5-10.1); Chloride 105 mmol/L (98-107); Cholesterol 209 mg/dL (200); Creatinine, Serum 1.17 mg/dL (0.70-1.30); EST Glomerular Filtration Rate 65 mL/min (>60); Est Glom Filt Rate - Afr Amer 79 mL/min (>60); Glucose 100 mg/dL (74-106); High Density Lipoprotein 44 mg/dL; Potassium 3.5 mmol/L (3.5-5.1); Sodium Level 138 mmol/L (136-145); Triglycerides 201 mg/dL; Very Low Density Lipoprotein 40 mg/dL (5-40)
== END | disposition home or self-care (01) ==
LOC: MFPLAB 09:49
PROVIDERS: PCP Family Medicine; Visit Provider Family Medicine
DX: Z00.00 Encounter for general adult medical examination without abnormal findings (principal)
CPT/HCPCS: 36415; 80048; 80061

== ENCOUNTER → 2023-05-25 | Outpatient (CLI) | payer MEDICARE, SELFPAY ==
[2023-05-25 08:27] LABS: Mucous, Urine 0 SEEN /hpf (<or=2+); Squamous Epithelial Cells - UA 0 SEEN /hpf (0-5)
[2023-05-25 10:46] LABS: Color, Urine Yellow (Yellow); Glucose, Dipstick Normal (Normal); Ketone-Dipstick Negative (Negative); Leukocyte Esterase-Dipstick 25 /ul (Negative); Nitrite-Dipstick Negative (Negative); Occult Blood-Urine 50 /ul (Negative); Protein-Dipstick Negative (Negative); Specific Gravity, Urine 1.015 (1.002-1.030); Urine Bilirubin Dipstick Negative (Negative); Urine Clarity Sl. Cloudy (Clear); Urine Urobilinogen 1 mg/dl (Normal); Urine pH 6.5 (5.0 - 8.0)
[2023-05-25 10:56] LABS: Bacteria RARE /hpf (None Seen); Red Blood Cells-Urine 0-5 SEEN /hpf (0-5); White Blood Cells 0-5 SEEN /hpf (0-5)
[2023-05-25 11:00] LABS: Absolute Lymphocyte Count 1.87 X10^3/uL (0.83-4.51); Basophil# 0.03 X10^3/uL; Basophil% 0.5 % (0-1); Eosinophil# 0.11 X10^3/uL; Eosinophils% 1.7 % (0-5); Hematocrit 45.7 % (40-54); Hemoglobin 15.1 g/dL (13.0-16.5); Lymphocyte # 1.87 X10^3/ul (0.83-4.51); Lymphocyte % 28.9 % (19-41); Mean Corpuscular Hgb 28.8 pg (27.0-32.0); Mean Platelet Vol. 10.8 fl (6.2-12.0); Monocyte# 0.45 X10^3/uL; NRBC Flagged by Analyzer 0 % (0-5); Neutrophil # 3.99 X10^3/uL (2.7-7.7); Neutrophil % 61.6 % (47-70); Platelet Count 271 K/mm3 (150-450); RBC Distribution Width CV 13.4 % (11.6-14.6); RBC Distribution Width SD 41.9 fl (35.1-43.9); Red Blood Count 5.25 M/mm3 (4.6-6.2); White Blood Count 6.5 K/mm3 (4.4-11.0)
[2023-05-25 11:45] LABS: AST(SGOT) 27 U/L (15-37); Alanine Aminotransfer ALT/SGPT 37 U/L (16-61); Albumin, Serum 3.6 g/dL (3.2-5.0); Alkaline Phosphatase 99 U/L (45-117); Bilirubin, Direct 0.09 mg/dL (0.00-0.30); Creatinine, Serum 1.27 mg/dL (0.70-1.30); EST Glomerular Filtration Rate 59 mL/min (>60); Est Glom Filt Rate - Afr Amer 72 mL/min (>60); Globulin 4.1 g/dL (2.2-4.2); Protein, Total 7.7 g/dL (6.4-8.2); Uric Acid 4.6 mg/dL (3.5-7.2)
[2023-05-26 14:09] LABS: Anti-Smooth Muscle ABS 6 Units (0-19); Complement C3 124 mg/dL (82-167)
[2023-05-27 14:09] LABS: Anti-Nuclear Antibody Test Positive (.); Anti-dsDNA Ab <1 IU/mL (0-9)
== END | disposition home or self-care (01) ==
LOC: MTLAB 08:20
PROVIDERS: PCP Family Medicine; Referring Provider Internal Medicine Rheumatology; Visit Provider Internal Medicine Rheumatology
DX: Z79.899 Other long term (current) drug therapy (principal); K75.4 Autoimmune hepatitis; M1A.00X0 Idiopathic chronic gout, unspecified site, without tophus (tophi); R76.0 Raised antibody titer
CPT/HCPCS: 36415; 80076; 81001; 82565; 83516; 84550; 85025; 86038; 86160; 86225

== ENCOUNTER → 2023-09-23 | Outpatient (CLI) | payer MEDICARE, SELFPAY ==
[2023-09-23 12:35] LABS: Anion Gap 6 (5-15); BUN 11 mg/dL (7-18); BUN/Creat Ratio 9.2 RATIO (10-20); Calcium,Total 9.1 mg/dL (8.5-10.1); Chloride 104 mmol/L (98-107); Cholesterol 182 mg/dL (200); Creatinine, Serum 1.19 mg/dL (0.70-1.30); EST Glomerular Filtration Rate 64 mL/min (>60); Est Glom Filt Rate - Afr Amer 77 mL/min (>60); Glucose 104 mg/dL (74-106); High Density Lipoprotein 42 mg/dL; Potassium 3.5 mmol/L (3.5-5.1); Sodium Level 138 mmol/L (136-145); Triglycerides 75 mg/dL; Very Low Density Lipoprotein 15 mg/dL (5-40)
== END | disposition home or self-care (01) ==
LOC: MFPLAB 09:24
PROVIDERS: PCP Family Medicine; Visit Provider Family Medicine
DX: I10 Essential (primary) hypertension (principal)
CPT/HCPCS: 36415; 80048; 80061

== ENCOUNTER → 2023-11-26 | Outpatient (CLI) | payer MEDICARE, SELFPAY ==
[2023-11-26 08:56] LABS: Bacteria 0 SEEN /hpf (None Seen); Mucous, Urine 0 SEEN /hpf (<or=2+); Red Blood Cells-Urine 0 SEEN /hpf (0-5); Squamous Epithelial Cells - UA 0 SEEN /hpf (0-5); White Blood Cells 0 SEEN /hpf (0-5)
[2023-11-26 09:33] LABS: Absolute Neutrophil Count 5.1 X10^3/uL (2.0-7.7); Basophil# 0.03 X10^3/uL; Basophil% 0.4 % (0-1); Eosinophil# 0.14 X10^3/uL; Hemoglobin 14.7 g/dL (13.0-16.5); Lymphocyte % 19.6 % (19-41); Mean Corp Hgb Conc 32.7 g/dL (32-36); Mean Corpuscular Hgb 28.8 pg (27.0-32.0); Mean Corpuscular Volume 88.2 fL (80-94); Mean Platelet Vol. 10.2 fl (6.2-12.0); Monocyte# 0.46 X10^3/uL; Monocyte% 6.5 % (0-10); NRBC Flagged by Analyzer 0 % (0-5); Neutrophil # 5.07 X10^3/uL (2.7-7.7); Neutrophil % 71.1 % (47-70); Platelet Count 265 K/mm3 (150-450); RBC Distribution Width CV 13.2 % (11.6-14.6); RBC Distribution Width SD 42.6 fl (35.1-43.9); White Blood Count 7.1 K/mm3 (4.4-11.0)
[2023-11-26 09:38] LABS: Color, Urine Yellow (Yellow); Glucose, Dipstick Normal (Normal); Ketone-Dipstick Negative (Negative); Leukocyte Esterase-Dipstick 25 /ul (Negative); Nitrite-Dipstick Negative (Negative); Occult Blood-Urine 50 /ul (Negative); Protein-Dipstick Negative (Negative); Specific Gravity, Urine 1.015 (1.002-1.030); Urine Bilirubin Dipstick Negative (Negative); Urine Clarity Clear (Clear); Urine Urobilinogen Normal (Normal); Urine pH 6.5 (5.0 - 8.0)
[2023-11-26 09:41] LABS: Protein, Urine (Random) 10.2 mg/dL (<11.9); Protein:Creat Ratio 63 mg/g CRE (0-200)
[2023-11-26 10:18] LABS: AST(SGOT) 22 U/L (15-37); Alanine Aminotransfer ALT/SGPT 31 U/L (16-61); Albumin, Serum 3.8 g/dL (3.2-5.0); Alkaline Phosphatase 93 U/L (45-117); Bilirubin, Direct 0.15 mg/dL (0.00-0.30); Creatinine, Serum 1.22 mg/dL (0.70-1.30); EST Glomerular Filtration Rate 62 mL/min (>60); Est Glom Filt Rate - Afr Amer 75 mL/min (>60); Globulin 3.8 g/dL (2.2-4.2); Protein, Total 7.6 g/dL (6.4-8.2); Uric Acid 3.8 mg/dL (3.5-7.2)
[2023-11-28 12:08] LABS: Anti-Smooth Muscle ABS 14 Units (0-19); Complement C3 123 mg/dL (82-167)
== END | disposition home or self-care (01) ==
LOC: LAB 08:40
PROVIDERS: PCP Family Medicine; Referring Provider Urology; Visit Provider Urology
DX: M1A.9XX0 Chronic gout, unspecified, without tophus (tophi) (principal); K75.4 Autoimmune hepatitis; R76.0 Raised antibody titer; Z79.899 Other long term (current) drug therapy; R97.20 Elevated prostate specific antigen [PSA]
CPT/HCPCS: 80076; 81001; 82565; 82570; 83516; 84153; 84156; 84550; 85025; 86160

== ENCOUNTER → 2024-01-05 | Outpatient (CLI) | payer MEDICARE, SELFPAY ==
--- NOTE | 2024-01-05 12:54 | ECHOD_ITS ---
Reason For Study: SOB Procedure This was a 2D Doppler, Color Flow transthoracic echocardiogram. Unable to assess RV strain due to image quality of RV. Exam performed in department. Left Ventricle Normal LV size. Left ventricular systolic function is normal. The left ventricular ejection fraction is 65 %. Normal diastology for age. No regional wall motion abnormalities noted. Right Ventricle Normal RV size. Normal systolic function. Atria Normal left atrium. Normal right atrium. Mitral Valve Normal mitral valve. Tricuspid Valve Normal tricuspid valve. Unable to estimate RV systolic pressure due to inadequate jet, pulmonary artery pressure probably normal. Aortic Valve Trisinus/trileaflet aortic valve. Pulmonic Valve Normal pulmonic valve. Great Vessels Normal aortic root. The pulmonary artery is normal size. Normal inferior vena cava. Pericardium/Pleural No pericardial effusion. MMode/2D Measurements & Calculations LVIDd: 3.9 cm IVSd: 1.1 cm Ao root diam: 3.2 cm LVIDs: 2.7 cm LVPWd: 1.1 cm RVDd: 3.4 cm FS: 31.6 % LAV(MOD-bp): 39.0 ml LVAd ap4: 21.7 cm2 LVAd ap2: 20.3 cm2 LAV(MOD-bp) Indexed: 19.7 ml/m2 LVLd ap4: 8.2 cm LVLd ap2: 7.6 cm LAV(MOD-sp2): 37.3 ml EDV(MOD-sp4): 47.5 ml EDV(MOD-sp2): 46.7 ml LAV(MOD-sp4): 37.4 ml EDV(sp4-el): 48.9 ml EDV(sp2-el): 45.9 ml LVAs ap4: 10.3 cm2 LVAs ap2: 10.5 cm2 LVLs ap4: 6.3 cm LVLs ap2: 5.5 cm ESV(MOD-sp4): 14.2 ml ESV(MOD-sp2): 17.0 ml ESV(sp4-el): 14.1 ml ESV(sp2-el): 16.9 ml EF(MOD-sp4): 70.1 % EF(MOD-sp2): 63.6 % EF(sp4-el): 71.1 % SV(MOD-sp4): 33.3 ml SV(MOD-sp2): 29.7 ml SV(sp4-el): 34.7 ml LA dimension(2D): 3.6 cm LA A4 area: 14.7 cm2 RA A4 area: 11.9 cm2 TAPSE: 2.1 cm Time Measurements MV dec time: 0.17 sec Doppler Measurements & Calculations MV E max iván: 53.2 cm/sec Lat Peak E' Iván: 6.3 cm/sec Med Peak E' Iván: 7.5 cm/sec MV A max iván: 68.1 cm/sec E/E' lat: 8.4 E/E' med: 7.1 MV E/A: 0.78 MV V2 max: 93.7 cm/sec MV P1/2t max iván: 58.0 cm/sec Ao V2 max: 108.8 cm/sec MV max P.5 mmHg MV P1/2t: 52.3 msec Ao max P.7 mmHg MV V2 mean: 48.0 cm/sec MV dec slope: 325.2 cm/sec2 Ao V2 mean: 80.0 cm/sec MV mean P.1 mmHg Ao mean P.8 mmHg MV V2 VTI: 15.2 cm MVA(P1/2t): 4.2 cm2 Ao V2 VTI: 21.2 cm AV (velocity ratio): 0.71 LV V1 max: 77.3 cm/sec PA V2 max: 105.9 cm/sec LV V1 max P.4 mmHg PA V2 mean: 83.7 cm/sec LV V1 mean P.5 mmHg LV V1 mean: 57.6 cm/sec LV V1 VTI: 15.1 cm ECHO/Echo Complete Interpretation Summary Normal LV size. Left ventricular systolic function is normal. The left ventricular ejection fraction is 65 %. Unable to estimate RV systolic pressure due to inadequate jet, pulmonary artery pressure probably normal. Ordering Physician: Car Henry V Referring Physician: Kang Dickerson Performed By: Sophy Muse RDCS, RVT
== END | disposition home or self-care (01) ==
LOC: CVS 12:52
PROVIDERS: PCP Family Medicine; Referring Provider Internal Medicine Pulmonary Disease; Visit Provider Internal Medicine Pulmonary Disease
DX: R06.02 Shortness of breath (principal); G47.33 Obstructive sleep apnea (adult) (pediatric)
CPT/HCPCS: 93306

== ENCOUNTER → 2024-02-28 | Outpatient (CLI) | payer MEDICARE, SELFPAY ==
[2024-02-28 12:34] LABS: Anion Gap 6 (5-15); BUN 17 mg/dL (7-18); BUN/Creat Ratio 13.1 RATIO (10-20); Calcium,Total 9.8 mg/dL (8.5-10.1); Chloride 107 mmol/L (98-107); Cholesterol 199 mg/dL (200); EST Glomerular Filtration Rate 58 mL/min (>60); Est Glom Filt Rate - Afr Amer 70 mL/min (>60); Glucose 112 mg/dL (74-106); High Density Lipoprotein 45 mg/dL; Potassium 4.1 mmol/L (3.5-5.1); Sodium Level 139 mmol/L (136-145); Triglycerides 143 mg/dL; Very Low Density Lipoprotein 29 mg/dL (5-40)
== END | disposition home or self-care (01) ==
LOC: MTLAB 09:27
PROVIDERS: PCP Family Medicine; Referring Provider Family Medicine; Visit Provider Family Medicine
DX: Z00.00 Encounter for general adult medical examination without abnormal findings (principal)
CPT/HCPCS: 36415; 80048; 80061

== ENCOUNTER → 2024-06-18 | Outpatient (CLI) | payer MEDICARE, SELFPAY ==
[2024-06-18 11:19] LABS: Mucous, Urine 0 SEEN /hpf (<or=2+); Squamous Epithelial Cells - UA 0 SEEN /hpf (0-5)
[2024-06-18 15:16] LABS: Absolute Lymphocyte Count 1.71 X10^3/uL (0.83-4.51); Absolute Neutrophil Count 4.8 X10^3/uL (2.0-7.7); Basophil# 0.04 X10^3/uL; Basophil% 0.6 % (0-1); Eosinophil# 0.09 X10^3/uL; Eosinophils% 1.3 % (0-5); Hematocrit 45.4 % (40-54); Lymphocyte # 1.71 X10^3/ul (0.83-4.51); Lymphocyte % 23.8 % (19-41); Mean Corpuscular Hgb 28.3 pg (27.0-32.0); Mean Corpuscular Volume 85.7 fL (80-94); Mean Platelet Vol. 10.2 fl (6.2-12.0); Monocyte# 0.53 X10^3/uL; Monocyte% 7.4 % (0-10); NRBC Flagged by Analyzer 0 % (0-5); Neutrophil # 4.81 X10^3/uL (2.7-7.7); Neutrophil % 66.6 % (47-70); Platelet Count 288 K/mm3 (150-450); RBC Distribution Width CV 13.2 % (11.6-14.6); RBC Distribution Width SD 40.9 fl (35.1-43.9); White Blood Count 7.2 K/mm3 (4.4-11.0)
[2024-06-18 15:18] LABS: Color, Urine Yellow (Yellow); Glucose, Dipstick Normal (Normal); Ketone-Dipstick Negative (Negative); Leukocyte Esterase-Dipstick 25 /ul (Negative); Nitrite-Dipstick Negative (Negative); Occult Blood-Urine 50 /ul (Negative); Protein-Dipstick 15 mg/dl (Negative); Specific Gravity, Urine 1.015 (1.002-1.030); Urine Bilirubin Dipstick Negative (Negative); Urine Clarity Clear (Clear); Urine Urobilinogen 1 mg/dl (Normal)
[2024-06-18 15:38] LABS: AST(SGOT) 23 U/L (15-37); Alanine Aminotransfer ALT/SGPT 29 U/L (16-61); Albumin, Serum 3.6 g/dL (3.2-5.0); Alkaline Phosphatase 124 U/L (45-117); Bilirubin, Direct 0.06 mg/dL (0.00-0.30); Creatinine, Serum 1.13 mg/dL (0.70-1.30); EST Glomerular Filtration Rate 68 mL/min (>60); Est Glom Filt Rate - Afr Amer 82 mL/min (>60); Globulin 4.5 g/dL (2.2-4.2); Protein, Total 8.1 g/dL (6.4-8.2); Uric Acid 4.1 mg/dL (3.5-7.2)
[2024-06-18 15:41] LABS: Protein, Urine (Random) 13.9 mg/dL (<11.9); Protein:Creat Ratio 87 mg/g CRE (0-200)
[2024-06-18 20:00] LABS: Red Blood Cells-Urine 25-50 SEEN /hpf (0-5); White Blood Cells 10-25 SEEN /hpf (0-5)
[2024-06-18 20:01] LABS: Bacteria 1+ /hpf (None Seen)
[2024-06-21 14:07] LABS: ANTINUCLEAR ANTIBODIES DIRECT Negative (Negative)
[2024-06-21 15:07] LABS: Anti-Smooth Muscle ABS 13 Units (0-19); Complement C3 146 mg/dL (82-167)
== END | disposition home or self-care (01) ==
PROVIDERS: PCP Family Medicine; Referring Provider Internal Medicine Rheumatology; Visit Provider Internal Medicine Rheumatology
DX: M1A.9XX0 Chronic gout, unspecified, without tophus (tophi) (principal); K75.4 Autoimmune hepatitis; R76.0 Raised antibody titer; Z79.899 Other long term (current) drug therapy
CPT/HCPCS: 36415; 80076; 81001; 82565; 82570; 83516; 84156; 84550; 85025; 86038; 86160; 86225

== ENCOUNTER → 2024-08-17 | Outpatient (CLI) | payer MEDICARE, SELFPAY ==
--- NOTE | 2024-08-17 14:46 | RAD_ITS ---
PROCEDURE: HIPS B/L MIN 2 VIEWS W/ PELVIS REASON FOR EXAM: Hip pain, pain through left groin that radiates down leg TECHNIQUE: AP view of the pelvis and AP and lateral views of the right and the left hip, 5 total images COMPARISON: None. FINDINGS: No fracture or dislocation. The joint spaces appear within limits. Symmetric appearing SI joints and pubic symphysis appear within limits. No osseous lesion identified. Mild osteoarthrosis lateral aspect of the right and left hip. Possible changes of calcific tendinopathy at the right greater trochanter. RAD/Hips B/L min 2 views w/ Pelvis IMPRESSION: Mild bilateral hip osteoarthrosis. Reading Location: [id number]
[2024-08-17 15:38] LABS: Absolute Neutrophil Count 4.8 X10^3/uL (2.0-7.7); Basophil# 0.03 X10^3/uL; Basophil% 0.4 % (0-1); Eosinophil# 0.07 X10^3/uL; Eosinophils% 0.9 % (0-5); Hematocrit 44.5 % (40-54); Hemoglobin 14.7 g/dL (13.0-16.5); Lymphocyte % 27.8 % (19-41); Mean Corpuscular Hgb 28.5 pg (27.0-32.0); Mean Corpuscular Volume 86.2 fL (80-94); Mean Platelet Vol. 10.8 fl (6.2-12.0); Monocyte# 0.57 X10^3/uL; Monocyte% 7.5 % (0-10); NRBC Flagged by Analyzer 0 % (0-5); Neutrophil # 4.77 X10^3/uL (2.7-7.7); Neutrophil % 63.1 % (47-70); Platelet Count 303 K/mm3 (150-450); RBC Distribution Width CV 13.2 % (11.6-14.6); RBC Distribution Width SD 41.2 fl (35.1-43.9); Red Blood Count 5.16 M/mm3 (4.6-6.2); White Blood Count 7.6 K/mm3 (4.4-11.0)
[2024-08-17 15:53] LABS: AST(SGOT) 20 U/L (<=37); Alanine Aminotransfer ALT/SGPT 16 U/L (<=46); Albumin, Serum 4.2 g/dL (3.4-4.8); Alkaline Phosphatase 125 U/L (40-129); Bilirubin, Direct 0.11 mg/dL (0.00-0.30); Creatinine, Serum 1.12 mg/dL (0.70-1.20); EST Glomerular Filtration Rate 70 (>60); Globulin 3.6 g/dL (2.2-4.2); Protein, Total 7.9 g/dL (5.9-8.4); Total Bilirubin 0.23 mg/dL (0.00-1.30)
== END | disposition home or self-care (01) ==
PROVIDERS: PCP Family Medicine; Referring Provider Internal Medicine Rheumatology; Visit Provider Internal Medicine Rheumatology
DX: M1A.9XX0 Chronic gout, unspecified, without tophus (tophi) (principal); Z79.899 Other long term (current) drug therapy; M25.559 Pain in unspecified hip
CPT/HCPCS: 36415; 73521; 80076; 82565; 84550; 85025

== ENCOUNTER → 2024-09-26 | Outpatient (CLI) | payer MEDICARE, SELFPAY ==
[2024-09-26 14:54] LABS: ALB/GLOB Ratio 1.1 RATIO (0.9-2.4); AST(SGOT) 21 U/L (<=37); Alanine Aminotransfer ALT/SGPT 16 U/L (<=46); Albumin, Serum 4.1 g/dL (3.4-4.8); Alkaline Phosphatase 111 U/L (40-129); Anion Gap 13 (5-15); BUN 19 mg/dL (4-19); BUN/Creat Ratio 16.8 RATIO (10-20); Calcium,Total 9.4 mg/dL (7.6-11.0); Carbon Dioxide 24.9 mmol/L (21.0-32.0); Chloride 102 mmol/L (98-108); Cholesterol 161 mg/dL (<=200); EST Glomerular Filtration Rate 71 (>60); Globulin 3.8 g/dL (2.2-4.2); Glucose 99 mg/dL (70-99); High Density Lipoprotein 39 mg/dL; Low Density Lipoprotein Calc. 97 mg/dL; Potassium 3.7 mmol/L (3.3-5.1); Protein, Total 7.9 g/dL (5.9-8.4); Sodium Level 139 mmol/L (133-145); Total Bilirubin 0.29 mg/dL (0.00-1.30); Triglycerides 122 mg/dL; Very Low Density Lipoprotein 24 mg/dL (5-40)
== END | disposition home or self-care (01) ==
LOC: MTLAB 08:23
PROVIDERS: PCP Family Medicine; Referring Provider Family Medicine; Visit Provider Family Medicine
DX: I10 Essential (primary) hypertension (principal)
CPT/HCPCS: 36415; 80053; 80061

== ENCOUNTER 2024-11-05 10:30 | Outpatient (RCR) | payer MEDICARE, SELFPAY ==
--- NOTE | 2024-10-08 12:02 | HP.PTEVAL ---
Patient's Visit Information Visit Information Visit Information: AQUILES BRENNER is a 74 year old M referred to Physical Therapy by Dr. Kang Dickerson MD with a diagnosis of LEFT HIP PAIN. Date of Evaluation: 10/08/24 Physical Therapist: Cory Howell PT, Cert MDT, OCS Visit Plan Frequency: 2x /Week Duration: 4 Weeks Plan: PT INTERVENTIONS CORE EX'S STRENGTHENING EX'S ( HIP) ,FUNCTIONAL STRENGTHENING AND FLEXABILITY Subjective Subjective: This 74 y/o male presents physical therapy for left leg pain. Patient has had many years 2017. Seen DR george x-rays showed mild OA . Patient has h/o lumbar x-rays 2021 showed DDD mod . Initially many years ago noticed symptoms turning, Medication meloxicam . Location groin to thigh occasional buttuck . Aggravating extending walking ,stairs ,sitting. Alleviating heat mediation. Denies paresthesia/tingling. Coughing/sneezing-. Patient sleeping. No tuama . No abnormal night pain.Patient condition affects QOL and function. Patient goals to decrease pain. VOCATION:retired SOCIAL: HOOBIES: fishing Pain Left Hip: Pain Intensity (Out of 10): 1 Pain Intensity Range: 10 Objective Objective: POSTURE: mild forward posture GAIT: reciprocal pattern NEURO: denies paresthesia/tingling ,reflexes L3-4,L4-5 ,L5-S1 1/3 PALAPTION: unremarkable PROM: hip flexion 110 degrees ,IR 0 ,ER 45 LUMBAR ROM: flexion min loss ,extension min/mod loss ,side glides min/mod loss FLEXABILITY: hamstrings min tight ,piriformis min tight MMT: left quads/hams 4/5 ,( peak force) hip flexion 22.9 ,hip abd 27.8 Special Tests L/S Slump test left side: Negative L/S Slump test right side: Negative L/S Left Straight Leg Raise: Positive L/S Right Straight Leg Raise: Positive Lumbar Standing: Flexion - Mechanical Response: No effect Lumbar Standing: Flexion - Symptoms During Testing: No effect Lumbar Standing: Flexion - Symptoms After Testing: No effect Lumbar Standing: Extension - Mechanical Response: No effect Lumbar Standing: Extension - Symptoms During Testing: No effect Lumbar Standing: Extension - Symptoms After Testing: No effect Lumbar Standing: Right Side Glides - Mechanical Response: No effect Lumbar Standing: Right Side [place] - Symptoms During Testing: No effect Lumbar Standing: Right Side [place] - Symptoms After Testing: No effect Lumbar Standing: Left Side [place] - Mechanical Response: No effect Lumbar Standing: Left Side [place] - Symptoms During Testing: No effect Lumbar Standing: Left Side [place] - Symptoms After Testing: No effect L Hip Scour: Negative L Hip Quadrant - Intraarticular Pathology: Negative L Hip Trendelenberg - Glut Medius: Negative L Hip Resisted Exernal Derotation Test - GT Pain Syndrome: Negative Balance/Special Test Scores Lower Extremity Functional Score: 39 Goals Goal 1:: Patient to be I with HEP hip Goal Time Frame: 4-6 Weeks Goal 2:: Patient to improve strength peak force by 5-10# to improve function to improve gait Goal Time Frame: 4-6 Weeks Goal 3:: Patient to improve LFES score by 5-10 points to improve QOL and function Goal Time Frame: 4-6 Weeks Goal 4:: Patient to demonstrated 50% improvement with less pain and improved function Goal Time Frame: 4-6 Weeks Rehabilitation Potential Physical Therapy Diagnosis: This patient has left hip pain with weakness pain with walking and stairs has OA in hip thus benefit from skilled PT Rehabilitation Potential: Good Anticipated Interventions Patient/Client Instruction: Educate patient on: Condition and Plan of Care For the Purpose of:: To decrease pain, To increase ROM, To improve muscle performance and motor function, To improve ability to perform ADL's, To increase tolerance to activity/condition/position, To improve ability of physical actions for home/community/work/leisure, To improve gait and locomotor functions, To improve health of tissue, To decrease soft tissue restriction, To reduce risk of recurrence and To improve tolerance to ADL's Therapeutic Exercise to Include: Strength training, Postural training, Flexibilty training and Dynamic Lumbar Stabilization Comment: HIP For the Purpose of:: To decrease pain, To increase ROM, To improve ability to perform ADL's, To increase tolerance to activity/condition/position, To improve ability of physical actions for home/community/work/leisure, To improve health of tissue, To decrease soft tissue restriction, To increase flexibility/ROM and To improve endurance Text: Thank you for the opportunity to evaluate your patient. For Medicare and Medicare HMO plans, please review the plan of care and approve it. It will need to be FAXED BACK to us at [phone] for Medicare purposes. For Medicare only, by signing this I certify the plan of care. Please let me know if there are questions or concerns regarding this plan of care. Physician Signature: Date:
--- NOTE | 2025-02-20 09:10 | HP.PT.NRP ---
Patient Information Patient Information: AQUILES BRENNER was seen in my office for initial evaluation on 10/08/24. The following Plan of Care was established for this patient: POC Established Initial Frequency: 2x /Week Initial Duration: 4 Weeks Anticipated Interventions Patient/Client Instruction: Educate patient on: Condition and Plan of Care For the Purpose of:: To decrease pain, To increase ROM, To improve muscle performance and motor function, To improve ability to perform ADL's, To increase tolerance to activity/condition/position, To improve ability of physical actions for home/community/work/leisure, To improve gait and locomotor functions, To improve health of tissue, To decrease soft tissue restriction, To reduce risk of recurrence and To improve tolerance to ADL's Therapeutic Exercise to Include: Strength training, Postural training, Flexibilty training and Dynamic Lumbar Stabilization For the Purpose of:: To decrease pain, To increase ROM, To improve ability to perform ADL's, To increase tolerance to activity/condition/position, To improve ability of physical actions for home/community/work/leisure, To improve health of tissue, To decrease soft tissue restriction, To increase flexibility/ROM and To improve endurance Last Seen Last Seen: This patient was last seen in our office . Pertinent comments regarding their Physical therapy will appear below: Patient was seen for PT for hip pain for HEP and d/c At this point I will be discontinuing this patient from physical therapy. I would be happy to see this patient again in the future if found appropriate by the physician. Thank you! Cory Howell, PT, Cert MDT, OCS Balance/Gait/Functional tests Balance/Special Test Scores Lower Extremity Functional Score: 39
== END 2024-11-05 19:00 | disposition home or self-care (01) ==
LOC: PT 10:30
PROVIDERS: PCP Family Medicine; Referring Provider Family Medicine; Visit Provider Family Medicine
DX: M79.605 Pain in left leg (principal)
CPT/HCPCS: 97110; 97140; 97162

== ENCOUNTER → 2024-11-13 | Outpatient (CLI) | payer MEDICARE, SELFPAY ==
[2024-11-13 12:21] LABS: Absolute Lymphocyte Count 2.64 X10^3/uL (0.83-4.51); Absolute Neutrophil Count 9.6 X10^3/uL (2.0-7.7); Basophil# 0.04 X10^3/uL; Basophil% 0.3 % (0-1); Eosinophil# 0.02 X10^3/uL; Eosinophils% 0.1 % (0-5); Hematocrit 38.5 % (40-54); Hemoglobin 12.6 g/dL (13.0-16.5); Lymphocyte # 2.64 X10^3/ul (0.83-4.51); Lymphocyte % 19.6 % (19-41); Mean Corp Hgb Conc 32.7 g/dL (32-36); Mean Corpuscular Hgb 28.4 pg (27.0-32.0); Mean Corpuscular Volume 86.9 fL (80-94); Mean Platelet Vol. 10.6 fl (6.2-12.0); Monocyte# 1.12 X10^3/uL; Monocyte% 8.3 % (0-10); NRBC Flagged by Analyzer 0 % (0-5); Neutrophil # 9.57 X10^3/uL (2.7-7.7); Platelet Count 368 K/mm3 (150-450); RBC Distribution Width CV 13.5 % (11.6-14.6); RBC Distribution Width SD 42.4 fl (35.1-43.9); Red Blood Count 4.43 M/mm3 (4.6-6.2); White Blood Count 13.5 K/mm3 (4.4-11.0)
[2024-11-13 12:41] LABS: Uric Acid 3.9 mg/dL (3.5-7.2)
[2024-11-13 12:52] LABS: AST(SGOT) 20 U/L (<=37); Alanine Aminotransfer ALT/SGPT 11 U/L (<=46); Albumin, Serum 3.3 g/dL (3.4-4.8); Alkaline Phosphatase 93 U/L (40-129); Bilirubin, Direct < 0.08 mg/dL (0.00-0.30); Creatinine, Serum 1.11 mg/dL (0.70-1.20); EST Glomerular Filtration Rate 71 (>60); Globulin 5.9 g/dL (2.2-4.2); Protein, Total 9.2 g/dL (5.9-8.4); Total Bilirubin 0.23 mg/dL (0.00-1.30)
== END | disposition home or self-care (01) ==
LOC: MTLAB 10:25
PROVIDERS: PCP Family Medicine; Referring Provider Internal Medicine Rheumatology; Visit Provider Internal Medicine Rheumatology
DX: M1A.9XX0 Chronic gout, unspecified, without tophus (tophi) (principal); Z79.899 Other long term (current) drug therapy
CPT/HCPCS: 36415; 80076; 82565; 84550; 85025

== ENCOUNTER → 2024-11-27 | Outpatient (CLI) | payer MEDICARE, SELFPAY ==
[2024-11-27 20:35] LABS: PSA,Total- Diagnostic 3.29 ng/mL (0.00-4.00)
== END | disposition home or self-care (01) ==
LOC: MTLAB 14:25
PROVIDERS: PCP Family Medicine; Referring Provider Urology; Visit Provider Urology
DX: R97.20 Elevated prostate specific antigen [PSA] (principal)
CPT/HCPCS: 36415; 84153

== ENCOUNTER → 2024-12-03 | Outpatient (CLI) | payer MEDICARE, SELFPAY ==
[2024-12-03 18:21] LABS: Absolute Lymphocyte Count 1.52 X10^3/uL (0.83-4.51); Absolute Neutrophil Count 6.5 X10^3/uL (2.0-7.7); Basophil# 0.03 X10^3/uL; Basophil% 0.3 % (0-1); Eosinophil# 0.03 X10^3/uL; Eosinophils% 0.3 % (0-5); Hematocrit 37.7 % (40-54); Hemoglobin 12.3 g/dL (13.0-16.5); Lymphocyte # 1.52 X10^3/ul (0.83-4.51); Lymphocyte % 17.1 % (19-41); Mean Corp Hgb Conc 32.6 g/dL (32-36); Mean Corpuscular Hgb 28.9 pg (27.0-32.0); Mean Corpuscular Volume 88.7 fL (80-94); Mean Platelet Vol. 11.7 fl (6.2-12.0); Monocyte# 0.79 X10^3/uL; Monocyte% 8.9 % (0-10); NRBC Flagged by Analyzer 0 % (0-5); Neutrophil # 6.48 X10^3/uL (2.7-7.7); Neutrophil % 72.7 % (47-70); Platelet Count 322 K/mm3 (150-450); RBC Distribution Width CV 14.5 % (11.6-14.6); RBC Distribution Width SD 46.5 fl (35.1-43.9); Red Blood Count 4.25 M/mm3 (4.6-6.2); White Blood Count 8.9 K/mm3 (4.4-11.0)
[2024-12-03 19:48] LABS: Erythrocyte Sedimentation Rate 71 mm/hr (0-20)
[2024-12-04 15:04] LABS: ALB/GLOB Ratio 0.4 RATIO (0.9-2.4); AST(SGOT) 27 U/L (<=37); Alanine Aminotransfer ALT/SGPT 19 U/L (<=46); Albumin, Serum 3.3 g/dL (3.4-4.8); Alkaline Phosphatase 99 U/L (40-129); Anion Gap 16 (5-15); BUN 21 mg/dL (4-19); BUN/Creat Ratio 16.6 RATIO (10-20); Bilirubin, Direct 0.14 mg/dL (0.00-0.30); Calcium,Total 11.8 mg/dL (7.6-11.0); Carbon Dioxide 21.3 mmol/L (21.0-32.0); Chloride 99 mmol/L (98-108); Creatinine, Serum 1.27 mg/dL (0.70-1.20); EST Glomerular Filtration Rate 60 (>60); Globulin 7.4 g/dL (2.2-4.2); Glucose 104 mg/dL (70-99); Potassium 4.1 mmol/L (3.3-5.1); Protein, Total 10.7 g/dL (5.9-8.4); Sodium Level 137 mmol/L (133-145); Total Bilirubin 0.42 mg/dL (0.00-1.30)
== END | disposition home or self-care (01) ==
LOC: MTLAB 14:30
PROVIDERS: PCP Family Medicine; Referring Provider Family Medicine; Visit Provider Family Medicine
DX: C79.51 Secondary malignant neoplasm of bone (principal); Z79.899 Other long term (current) drug therapy
CPT/HCPCS: 36415; 80053; 82248; 85025; 85652

== ENCOUNTER → 2024-12-03 | Outpatient (CLI) | payer MEDICARE, SELFPAY ==
--- NOTE | 2024-12-03 15:23 | CT_ITS ---
PROCEDURE: CT CHEST, ABD, PEL W/CONTRAST 12/03/2024 REASON FOR EXAM: SECONDARY MALIGNANT NEOPLASM OF BONE TECHNIQUE: Chest, abdomen and pelvis CT with intravenous contrast. Coronal and Sagittal reconstruction series were provided. One or more dose reduction techniques were used (e.g., Automated exposure control, adjustment of the mA and/or kV according to patient size, use of iterative reconstruction technique. PATIENT PREPARATION: Per protocol ORAL CONTRAST TYPE: None. CONTRAST: Isovue-300 VOLUME: 95mL. RADIATION DOSE SUMMARY: CTDlvol: 15.20+ 12.72+ 18.35 mGy DLP: 1410.84 mGycm COMPARISON: None. FINDINGS: CT CHEST: The peripheral soft tissues are unremarkable. Degenerative changes of the spine. The thyroid is unremarkable. The esophagus is normal in caliber. No mediastinal lymphadenopathy. The heart is normal in size. No pericardial effusion. The thoracic aorta is normal in caliber. The lungs are clear. CT ABDOMEN/PELVIS: The peripheral soft tissues are unremarkable. Left iliac bone lytic lesions with soft tissue extension. Possible small lytic lesions within the right iliac bone. Degenerative changes of the spine. No suspicious abdominal or pelvic lymphadenopathy. Moderate atherosclerosis. Normal caliber abdominal aorta. The liver, gallbladder, pancreas, spleen are unremarkable. Left adrenal subcentimeter nodule. Left kidney simple cyst. Bilateral subcentimeter hypodense lesions which are too small to characterize. Small bilateral nonobstructive renal calculi. No hydroureteronephrosis. Small posterior urinary bladder wall diverticulum. Enlarged prostate. Normal caliber large and small bowel. Dense colonic stool. CT/CT Chest, Abd, Pel w/Contrast IMPRESSION: Suspicious osseous lesions as above. Left adrenal subcentimeter nodule. No follow-up recommended based on size. Urinary bladder diverticulum. Prostatomegaly. Correlate with PSA. Dense colonic stool which may suggest constipation. Reading Location: [id number]
== END | disposition home or self-care (01) ==
PROVIDERS: PCP Family Medicine; Visit Provider Family Medicine
DX: C79.51 Secondary malignant neoplasm of bone (principal)
CPT/HCPCS: 71260; 74177; Q9967; A4216

== ENCOUNTER 2024-12-06 08:46 | Outpatient (CLI) | payer MEDICARE, SELFPAY ==
[2024-12-06] VITALS (12 sets, daily range): BP systolic 132–159; BP diastolic 70–96; PULSE 92–107; RESP 12–18; TEMP 37.2; O2SAT 92–96; BMI 28.1
--- NOTE | 2024-12-06 09:05 | CT_ITS ---
EXAM: CT-guided biopsy of the posterior right iliac bone. CLINICAL HISTORY: Bone lesions. COMPARISON: Prior CT scan dated December 03, 2024. TECHNIQUE: The procedure as well as the benefits and possible complications including infection and bleeding were explained to the patient. Informed consent was obtained. The patient was in the prone position. Conscious sedation was performed. The patient received 2 mg of Versed and 50 mcg of fentanyl intravenously. Conscious sedation was started at 9:54 a.m. and terminated at 10:19 a.m.. The patient was independently monitored by the department nurse. The overlying skin was prepped and draped in usual sterile fashion. Following local anesthetic application, an 18 gauge core biopsy needle was placed into the posterior aspect of the right iliac bone. 5 core biopsies were obtained and submitted to the pathologist for review. The specimen was deemed adequate. The patient tolerated the procedure well. Radiation dose report: CTDI L volume 14.66. DLP: 711 0.14 mGy FINDINGS: Successful CT-guided biopsy of the posterior aspect of the right iliac bone. CT/Biopsy/Inj or Needle Placement IMPRESSION: Successful CT-guided biopsy of the posterior aspect of the right iliac bone as described. The patient tolerated the procedure well. No immediate postprocedure complication noted. Reading Location: [facility]
[2024-12-06 09:09] LABS: Absolute Lymphocyte Count 1.91 X10^3/uL (0.83-4.51); Basophil# 0.05 X10^3/uL; Basophil% 0.6 % (0-1); Eosinophil# 0.09 X10^3/uL; Hematocrit 35.8 % (40-54); Hemoglobin 11.8 g/dL (13.0-16.5); Lymphocyte # 1.91 X10^3/ul (0.83-4.51); Lymphocyte % 21.6 % (19-41); Mean Corpuscular Hgb 28.6 pg (27.0-32.0); Mean Corpuscular Volume 86.9 fL (80-94); Mean Platelet Vol. 10.1 fl (6.2-12.0); Monocyte# 0.72 X10^3/uL; Monocyte% 8.1 % (0-10); NRBC Flagged by Analyzer 0 % (0-5); Neutrophil % 67.9 % (47-70); Platelet Count 374 K/mm3 (150-450); RBC Distribution Width CV 14.2 % (11.6-14.6); RBC Distribution Width SD 45.1 fl (35.1-43.9); Red Blood Count 4.12 M/mm3 (4.6-6.2); White Blood Count 8.8 K/mm3 (4.4-11.0)
--- OUTSIDE RECORDS SUMMARY | 2024-12-06 09:10 | XMS RPT_ITS | CCD ---
Author Organization [facility] Care Team Providers Care Frequency Checker Name Role Phone Victorino MCCAIN, Serjio Trimble Unavailable MICHELLE CANELA DPOzzy Admitting Unavailable MICHELLE CANELA DPM Attending Unavailable MICHELLE CANELA DPOzzy Primary Care Unavailable Jayla, Dr. Kapadia Primary Care Provider 1([facility])[phone] Alber, Dr. Garrsion Attending Provider 1([facility])[phone] Jeana, Dr. Braydon Butt Referring Provider 1([facility] )[phone] Jayla MCCAIN, Dr. Kapadia Primary Care Provider 1([facility] )[phone] Breanna MCCAIN, Dr. Bills Attending Provider 1([facility])[phone] Breanna MCCAIN, Dr. Bills Referring Provider 1([facility])[phone] Jayla MCCAIN, Dr. Kapadia Other Provider 1([facility])[phone] Jayla MCCAIN, Dr. Kapadia Attending Provider 1([facility])[phone] Jayla MCCAIN, Dr. Kapadia Referring Provider 1([facility])[phone] Unavailable Primary Care Provider Unavailsimeon Ash MD, Dr. Kapadia Primary Care Provider 1([facility] )[phone] Breanna MCCAIN, Dr. Bills Attending Provider 1([facility])[phone] Breanna MCCAIN, Dr. Bills Referring Provider 1([facility])[phone] Jeana MCCAIN, Dr. Braydon Butt Attending Provider [phone] Jeana MCCAIN, Dr. Braydon Butt Referring Provider KANG ASH Referring Unavailable Ash, Kang Primary Care Unavailable Ash, Kang Attending Unavailable Ash, Kang Referring Unavailable Ash, Kang Primary Care Unavailable Ash, Kang Consulting Unavailable Breanna, Sanju Attending Unavailable Carlos, Sanju Referring Unavailable Ash, Kang Referring Unavailable Ash, Kang Attending Unavailable Ash, Kang Primary Care Unavailable Ash, Kang Referring Unavailable Ash, Kang Attending Unavailable Ash, Kang Primary Care Unavailable Ash, Kang Referring Unavailable Ash, Kang Attending Unavailable Ash, Kang Primary Care Unavailable Ash, Kang Referring Unavailable Ash, Kang Attending Unavailable Ash, Kang Primary Care Unavailable Carlos, Sanju Consulting Unavailable Ash, Kang Primary Care Unavailable Carlos, Sanju Attending Unavailable Carlos, Sanju Referring Unavailable Chelita, Lc Attending Unavailable Ash, Kang Primary Care Unavailable Ash, Kang Primary Care Unavailable Jeana, Braydon Butt Attending Unavailable Jeana, Braydon Butt Referring Unavailable Ash, Kang Primary Care Unavailable Sibilia, Car V Attending Unavailable Sibilia, Car V Referring Unavailable Ash, Kang Referring Unavailable Ash, Kang Primary Care Unavailable Ash, Kang Attending Unavailable Ash, Kang Primary Care Unavailable Carlos, Sanju Attending Unavailable Carlos, Sanju Referring Unavailable Allergies Allergy Classification Reported Allergen(s) Allergy Type Date of Onset Reaction(s) Facility (1 source) JOSE drug allergy 03-14-2018 [facility] Work Phone: Medications Current Medications Medication Drug Class(es) Dates Sig (Normalized) Sig (Original) acetaminophen 325 mg / HYDROcodone bitartrate 5 mg oral tablet (16 sources) Opioid Agonist Start: 04-03-2021 Hydrocodone-Acetam inophen 5-325 mg tablet Active 1 {tbl} PO NEEDED as needed for dental pain April 03, 2021 12:00am Start: 04-03-2021 Hydrocodone-Ac etaminophen Active 1 TABLET PO NEEDED April 03, 2021 12:00am acetaminophen 325 mg / oxyCODONE hydrochloride 5 mg oral tablet (16 sources) Opioid Agonist Start: 04-03-2021 take 1-2 tablets by mouth every six hours as needed for pain Oxycodone-Acetaminophen 1 TABLET tablet Active 1 - 2 {tbl} PO EVERY 6 HOURS NEEDED as needed for Pain 24 3 April 03, 2021 Start: 04-03-2021 take 1 tablet by richard th every six hours as needed Oxycodone-Acetaminophen Active 1 - 2 TABLET PO EVERY 6 HOURS NEEDED 24 3 April 03, 2021 allopurinol 300 mg oral tablet (16 sources) Xanthine Oxidase Inhibitor Start: 08-12-2020 take 1 tablet by mouth once daily Allopurinol 300 MG tablet Active 300 mg PO DAILY August 12, 2020 1:00am amitriptyline hydrochloride 10 mg oral tablet (16 sources) Tricyclic Antidepressant Start: 11-25-2013 take 1 tablet by mouth at bedtime Amitriptyline 10 MG tablet Active 10 mg PO AT BEDTIME November 25, 2013 12:00am amLODIPine 2.5 mg oral tablet (16 sources) Dihydropyridine Calcium Channel Casey Start: 04-03-2021 take 1 tablet by mouth once daily Amlodipine 2.5 mg tablet Active 2.5 mg PO DAILY April 03, 2021 12:00am colchicine 0.6 mg oral tablet (16 sources) Start: 08-12-2020 Colchicine 0.6 MG tablet Active 1 {tbl} PO DAILY August 12, 2020 1:00am losartan potassium 100 mg oral tablet (16 sources) Angiotensin 2 Receptor Casey Start: 08-12-2020 take 1 tablet by mouth once daily Losartan 100 MG tablet Active 100 mg PO DAILY August 12, 2020 1:00am omeprazole 20 mg delayed release oral capsule (16 sources) Proton Pump Inhibitor Start: 04-03-2021 take 1 capsule by mouth once daily Omeprazole 20 mg capsule,delayed release(DR/EC) Active 20 mg PO DAILY April 03, 2021 12:00am tamsulosin hydrochloride 0.4 mg oral capsule (17 sources) alpha-Adrenergic Casey Start: 04-03-2021 take 1 capsule by mouth once daily Tamsulosin 0.4 mg capsule Active 0.4 mg PO DAILY April 03, 2021 12:00am Start: 03-14-2018 FLOMAX 0.4 MG CAPS once daily TAMSULOSIN HCL [id number] Tara Nielsen PA-C Completed/Discontinued Medications Medication Drug Class(es) Dates Sig (Normalized) Sig (Original) albuterol 0.83 mg/ml inhalant solution (1 source) beta2-Adrenergic Agonist Start: 03-14-20 ALBUTEROL SULFATE (2.5 MG/3ML) 0.083% NEBU as needed ALBUTEROL SULFATE [id number] Tara Nielsen PA-C aspirin 81 mg oral tablet (1 source) Nonsteroidal Anti-inflammatory Drug Start: 03-14-20 take 1 tablet by mouth once daily ASPIRIN 81 MG ORAL TABLET once daily ASPIRIN Tara Nielsen PA-C EZCKVBZIZON-NRLTJLYRA-D IT C-MN (1 source) Start: 03-14-20 18 GLUCOSAMINE CHONDR 1500 COMPLX CAPS once daily GLUCOSAMINE-CHONDROIT- VIT C-MN [id number] Tara Nielsen PA-C hydroCHLOROthiazide 12.5 mg oral tablet (1 source) Thiazide Diuretic Start: 03-14-20 18 HYDROCHLOROTHIAZIDE 12.5 MG TABS once daily HYDROCHLOROTHIAZIDE [id number] Tara Nielsen PA-C ibuprofen 800 mg oral tablet (1 source) Nonsteroidal Anti-inflammatory Drug Start: 03-14-20 18 take 1 tablet by mouth three times daily IBUPROFEN 800 MG TABS Take 1 tablet by mouth 3 times a day IBUPROFEN [id number] Serjio Gleason MD lisinopril 5 mg oral tablet (1 source) Angiotensin Converting Enzyme Inhibitor Start: 03-14-20 18 LISINOPRIL 5 MG TABS once daily LISINOPRIL [id number] Tara Nielsen PA-C loratadine 10 mg oral tablet (1 source) Start: 03-14-20 18 CLARITIN 10 MG TABS once daily as needed LORATADINE [id number] Tara Nielsen PA-C METHYLPREDNISOLONE (1 source) Corticosteroid Start: 03-14-20 18 MEDROL 4 MG TBPK Take as directed on package METHYLPREDNISOLONE [id number] Serjio Gleason MD Problems Active Problems Problem Classification Problem Date Documented Da te Episodic/Chronic Essential hypertension (1 source) Essential (primary) hypertension; Translations: [Essential (primary) hypertension] Onset: 09-28-2024 Chronic Gout and other crystal arthropathies (1 source) Chronic gout, unspecified, without tophus (tophi); Translations: [Chronic gout, unspecified, without tophus (tophi)] Onset: 11-20-2024 Chronic Other aftercare (1 source) Other chcf (current) drug therapy; Translations: [Other continuous churn buttermaker (current) drug therapy] Onset: 12-03-2024 Episodic Other connective tissue disease (1 source) Calcific tendinitis; Translations: [Calcific tendinitis, unspecified site] Onset: 03-14-2018 03-14-2018 Episodic Other connective tissue disease (1 source) Impingement syndrome of shoulder region; Translations: [Impingement syndrome of right shoulder] Onset: 03-14-2018 03-14-2018 Episodic Other connective tissue disease (16 sources) Thigh pain; Translations: [Pain in left thigh] 04-11-2021 Episodic Other screening for suspected conditions (not mental disorders or infectious disease) (1 source) Elevated prostate specific antigen [PSA]; Translations: [Elevated prostate specific antigen [PSA]] Onset: 11-30-2024 Episodic Secondary malignancies (1 source) Secondary malignant neoplasm of bone; Translations: [Secondary malignant neoplasm of bone] Onset: 12-03-2024 Chronic Spondylosis; intervertebral disc disorders; other back problems (1 source) Neck pain; Translations: [Cervicalgia] Onset: 03-14-2018 03-14-2018 Episodic Past or Other Problems Problem Classification Problem Date Documented Da te Episodic/Chronic Other lower respiratory disease (1 source) Shortness of breath; Translations: [Shortness of breath] Onset: 01-25-2024 Episodic Unclassified (1 source) Problem Results Test Name Value Interpretation Reference Range Facility Bilirubin, Directon 12-05-19 25 Bilirubin.direct [Mass/Vol] 0.14 mg/dL Normal 0.00-0.30 [facility] Comment on above: Order Comment: DR. Nadeen Brice GETS RESULTS FOR LIVER AND CBCD DR. ASH GETS RESULTS FOR CBCDCMPESR Performed By: #### L 501.1105, L100.0100, L501.1400, L500.3400 #### [facility] [address] [place], [address] [facility] 12-04-2024 Albumin [Mass/Vol] 3.3 g/dL Low 3.4-4.8 [facility] Comment on above: Order Comment: DR. Nadeen Brice GETS RESULTS FOR LIVER AND CBCD DR. ASH GETS RESULTS FOR CBCDCMPESR Performed By: #### L 501.1105, L100.0100, L501.1400, L500.3400 #### [facility] [address] [place], [address] Albumin/Globulin [Mass ratio] 0.4 {ratio} Low 0.9-2.4 [facility] Comment on above: Order Comment: DR. Nadeen Brice GETS RESULTS FOR LIVER AND CBCD DR. ASH GETS RESULTS FOR CBCDCMPESR Performed By: #### L 501.1105, L100.0100, L501.1400, L500.3400 #### [facility] [address] [place], [address] ALK PHOS 99 U/L Normal 40-129 [facility] Comment on above: Order Comment: DR. Nadeen Brice GETS RESULTS FOR LIVER AND CBCD DR. ASH GETS RESULTS FOR CBCDCMPESR Performed By: #### L 501.1105, L100.0100, L501.1400, L500.3400 #### [facility] [address] [place], [address] ALT [Catalytic activity/Vol] 19 U/L Normal <=46 [facility] Comment on above: Order Comment: DR. Nadeen Brice GETS RESULTS FOR LIVER AND CBCD DR. ASH GETS RESULTS FOR CBCDCMPESR Performed By: #### L 501.1105, L100.0100, L501.1400, L500.3400 #### [facility] [address] [place], [address] AST [Catalytic activity/Vol] 27 U/L Normal <=37 [facility] Comment on above: Order Comment: DR. Nadeen Brice GETS RESULTS FOR LIVER AND CBCD DR. ASH GETS RESULTS FOR CBCDCMPESR Performed By: #### L 501.1105, L100.0100, L501.1400, L500.3400 #### [facility] [address] [place], [address] Bilirubin [Mass/Vol] 0.42 mg/dL Normal 0.00-1.30 [facility] Comment on above: Order Comment: DR. Nadeen Brice GETS RESULTS FOR LIVER AND CBCD DR. ASH GETS RESULTS FOR CBCDCMPESR Performed By: #### L 501.1105, L100.0100, L501.1400, L500.3400 #### [facility] [address] [place], [address] BUN/CRE 16.6 RATIO Normal 10-20 [facility] Comment on above: Order Comment: DR. Nadeen Brice GETS RESULTS FOR LIVER AND CBCD DR. ASH GETS RESULTS FOR CBCDCMPESR Performed By: #### L 501.1105, L100.0100, L501.1400, L500.3400 #### [facility] [address] [place], [address] Calcium [Mass/Vol] 11.8 mg/dL High 7.6-11.0 [facility] Comment on above: Order Comment: DR. Nadeen Brice GETS RESULTS FOR LIVER AND CBCD DR. ASH GETS RESULTS FOR CBCDCMPESR Performed By: #### L 501.1105, L100.0100, L501.1400, L500.3400 #### [facility] [address] [place], [address] Chloride [Moles/Vol] 99 mmol/L Normal 98-108 [facility] Comment on above: Order Comment: DR. Nadeen Brice GETS RESULTS FOR LIVER AND CBCD DR. ASH GETS RESULTS FOR CBCDCMPESR Performed By: #### L 501.1105, L100.0100, L501.1400, L500.3400 #### [facility] [address] [place], [address] CO2 [Moles/Vol] 21.3 mmol/L Normal 21.0-32.0 [facility] Comment on above: Order Comment: DR. Nadeen Brice GETS RESULTS FOR LIVER AND CBCD DR. ASH GETS RESULTS FOR CBCDCMPESR Performed By: #### L 501.1105, L100.0100, L501.1400, L500.3400 #### [facility] [address] [place], [address] Creatinine [Mass/Vol] 1.27 mg/dL High 0.70-1.20 [facility] Comment on above: Order Comment: DR. Nadeen Brice GETS RESULTS FOR LIVER AND CBCD DR. ASH GETS RESULTS FOR CBCDCMPESR Performed By: #### L 501.1105, L100.0100, L501.1400, L500.3400 #### [facility] [address] [place], [address] GAP 16 High 5-15 [facility] Comment on above: Order Comment: DR. Nadeen Brice GETS RESULTS FOR LIVER AND CBCD DR. ASH GETS RESULTS FOR CBCDCMPESR Performed By: #### L 501.1105, L100.0100, L501.1400, L500.3400 #### [facility] [address] [place], [address] GFR/1.73 sq M.predicted among non-blacks MDRD (S/P/Bld) [Vol rate/Area] 60 mL/min/{1.73_m2} Normal >60 [facility] Comment on above: Order Comment: DR. Nadeen Brice GETS RESULTS FOR LIVER AND CBCD DR. ASH GETS RESULTS FOR CBCDCMPESR Result Comment: mL/m in/1.73m2 CKD-EPI Creatinine Equation (2020) Performed By: #### L 501.1105, L100.0100, L501.1400, L500.3400 #### [facility] [address] [place], [address] Globulin (S) [Mass/Vol] 7.4 g/dL High 2.2-4.2 [facility] Comment on above: Order Comment: DR. Nadeen Brice GETS RESULTS FOR LIVER AND CBCD DR. ASH GETS RESULTS FOR CBCDCMPESR Performed By: #### L 501.1105, L100.0100, L501.1400, L500.3400 #### [facility] [address] [place], [address] Glucose [Mass/Vol] 104 mg/dL High 70-99 [facility] Comment on above: Order Comment: DR. Nadeen Brice GETS RESULTS FOR LIVER AND CBCD DR. ASH GETS RESULTS FOR CBCDCMPESR Performed By: #### L 501.1105, L100.0100, L501.1400, L500.3400 #### [facility] [address] [place], [address] Potassium [Moles/Vol] 4.1 mmol/L Normal 3.3-5.1 [facility] Comment on above: Order Comment: DR. Nadeen Brice GETS RESULTS FOR LIVER AND CBCD DR. ASH GETS RESULTS FOR CBCDCMPESR Performed By: #### L 501.1105, L100.0100, L501.1400, L500.3400 #### [facility] [address] [place], [address] Sodium [Moles/Vol] 137 mmol/L Normal 133-145 [facility] Comment on above: Order Comment: DR. Nadeen Brice GETS RESULTS FOR LIVER AND CBCD DR. ASH GETS RESULTS FOR CBCDCMPESR Performed By: #### L 501.1105, L100.0100, L501.1400, L500.3400 #### [facility] [address] [place], [address] T PROT 10.7 g/dL High 5.9-8.4 [facility] Comment on above: Order Comment: DR. Nadeen Brice GETS RESULTS FOR LIVER AND CBCD DR. ASH GETS RESULTS FOR CBCDCMPESR Performed By: #### L 501.1105, L100.0100, L501.1400, L500.3400 #### [facility] [address] [place], [address] Urea nitrogen [Mass/Vol] 21 mg/dL High 4-19 [facility] Comment on above: Order Comment: DR. Nadeen Brice GETS RESULTS FOR LIVER AND CBCD DR. ASH GETS RESULTS FOR CBCDCMPESR Performed By: #### L 501.1105, L100.0100, L501.1400, L500.3400 #### [facility] [address] [place], [address] CBC W/Diff, Automatedon 06-06 25-2024 Absolute Lymph 1.52 X10 3/uL Normal 0.83-4.51 [facility] Comment on above: Performed By: #### L 501.1105, L100.0100, L501.1400, L500.3400 #### [facility] [address] [place], [address] Absolute Neut 6.5 X10 3/uL Normal 2.0-7.7 [facility] Comment on above: Performed By: #### L 501.1105, L100.0100, L501.1400, L500.3400 #### [facility] [address] [place], [address] Basophils/100 WBC (Bld) 0.3 % Normal 0-1 [facility] Comment on above: Performed By: #### L 501.1105, L100.0100, L501.1400, L500.3400 #### [facility] [address] [place], [address] Eosinophils/100 WBC (Bld) 0.3 % Normal 0-5 [facility] Comment on above: Performed By: #### L 501.1105, L100.0100, L501.1400, L500.3400 #### [facility] [address] [place], [address] Erythrocyte distribution width (RBC) [Ratio] 14.5 % Normal 11.6-14.6 [facility] Comment on above: Performed By: #### L 501.1105, L100.0100, L501.1400, L500.3400 #### [facility] [address] [place], [address] Hematocrit (Bld) [Volume fraction] 37.7 % Low 40-54 [facility] Comment on above: Performed By: #### L 501.1105, L100.0100, L501.1400, L500.3400 #### [facility] [address] [place], [address] Hemoglobin (Bld) [Mass/Vol] 12.3 g/dL Low 13.0-16.5 [facility] Comment on above: Performed By: #### L 501.1105, L100.0100, L501.1400, L500.3400 #### [facility] [address] [place], [address] IG% 0.700 Normal 0.0-0.9 [facility] Comment on above: Result Comment: IG% - Immature Granulocytes (promyelocytes, myelocytes and metamyelocytes) > 1% indicates that a LEFT SHIFT is Present. Performed By: #### L 501.1105, L100.0100, L501.1400, L500.3400 #### [facility] [address] [place], [address] Lymphocytes/100 WBC (Bld) 17.1 % Low 19-41 [facility] Comment on above: Performed By: #### L 501.1105, L100.0100, L501.1400, L500.3400 #### [facility] [address] [place], [address] MCH (RBC) [Entitic mass] 28.9 pg Normal 27.0-32.0 [facility] Comment on above: Performed By: #### L 501.1105, L100.0100, L501.1400, L500.3400 #### [facility] [address] [place], [address] MCHC (RBC) [Mass/Vol] 32.6 g/dL Normal 32-36 [facility] Comment on above: Performed By: #### L 501.1105, L100.0100, L501.1400, L500.3400 #### [facility] [address] [place], [address] MCV (RBC) [Entitic vol] 88.7 fL Normal 80-94 [facility] Comment on above: Performed By: #### L 501.1105, L100.0100, L501.1400, L500.3400 #### [facility] [address] [place], [address] Monocytes/100 WBC (Bld) 8.9 % Normal 0-10 [facility] Comment on above: Performed By: #### L 501.1105, L100.0100, L501.1400, L500.3400 #### [facility] [address] [place], [address] Neutrophils/100 WBC (Bld) 72.7 % High 47-70 [facility] Comment on above: Performed By: #### L 501.1105, L100.0100, L501.1400, L500.3400 #### [facility] [address] [place], [address] Nucleated RBC (Bld) [#/Vol] 0 10*3/uL Normal 0-5 [facility] Comment on above: Performed By: #### L 501.1105, L100.0100, L501.1400, L500.3400 #### [facility] [address] [place], [address] Platelet mean volume (Bld) [Entitic vol] 11.7 fL Normal 6.2-12.0 [facility] Comment on above: Performed By: #### L 501.1105, L100.0100, L501.1400, L500.3400 #### [facility] [address] [place], [address] Platelets (Bld) [#/Vol] 322 10*3/uL Normal 150-450 [facility] Comment on above: Performed By: #### L 501.1105, L100.0100, L501.1400, L500.3400 #### [facility] [address] [place], [address] RBC (Bld) [#/Vol] 4.25 10*6/uL Low 4.6-6.2 [facility] Comment on above: Performed By: #### L 501.1105, L100.0100, L501.1400, L500.3400 #### [facility] [address] [place], [address] RDW SD 46.5 fl High 35.1-43.9 [facility] Comment on above: Performed By: #### L 501.1105, L100.0100, L501.1400, L500.3400 #### [facility] [address] [place], [address] WBC (Bld) [#/Vol] 8.9 10*3/uL Normal 4.4-11.0 [facility] Comment on above: Performed By: #### L 501.1105, L100.0100, L501.1400, L500.3400 #### [facility] [address] [place], [address] CT Chest, Abd, Pel w/Contras ton 12-03-2024 CT Chest, Abd, Pel w/Contrast [facility] [address] [place] [address] CT Chest, Abd, Pel w/Contrast MR#: [id number] Acct: [id number] Name: MERLIN HOLMAN Rep #: [id number] : 1950 M 74 From: See [place] MD PCP: Dr. Kang Ash MD Status: REG CLI Study: CT Chest, Abd, Pel w/Contrast Date of Exam: Exam# [id number] Ordering Dr: Kang Ash MD PROCEDURE: CT CHEST, ABD, PEL W/CONTRAST 12/03/2024 REASON FOR EXAM: SECONDARY MALIGNANT NEOPLASM OF BONE TECHNIQUE: Chest, abdomen and pelvis CT with intravenous contrast. Coronal and Sagittal reconstruction series were provided. One or more dose reduction techniques were used (e.g., Automated exposure control, adjustment of the mA and/or kV according to patient size, use of iterative reconstruction technique. PATIENT PREPARATION: Per protocol ORAL CONTRAST TYPE: None. CONTRAST: Isovue-300 VOLUME: 95mL. RADIATION DOSE SUMMARY: CTDlvol: 15.20+ 12.72+ 18.35 mGy DLP: 1410.84 mGycm COMPARISON: None. FINDINGS: CT CHEST: The peripheral soft tissues are unremarkable. Degenerative changes of the spine. The thyroid is unremarkable. The esophagus is normal in caliber. No mediastinal lymphadenopathy. The heart is normal in size. No pericardial effusion. The thoracic aorta is normal in caliber. The lungs are clear. CT ABDOMEN/PELVIS: The peripheral soft tissues are unremarkable. Left iliac bone lytic lesions with soft tissue extension. Possible small lytic lesions within the right iliac bone. Degenerative changes of the spine. No suspicious abdominal or pelvic lymphadenopathy. Moderate atherosclerosis. Normal caliber abdominal aorta. The liver, gallbladder, pancreas, spleen are unremarkable. Left adrenal subcentimeter nodule. Left kidney simple cyst. Bilateral subcentimeter hypodense lesions which are too small to characterize. Small bilateral nonobstructive renal calculi. No hydroureteronephrosis. Small posterior urinary bladder wall diverticulum. Enlarged prostate. Normal caliber large and small bowel. Dense colonic stool. CT/CT Chest, Abd, Pel w/Contrast IMPRESSION: Suspicious osseous lesions as above. Left adrenal subcentimeter nodule. No follow-up recommended based on size. Urinary bladder diverticulum. Prostatomegaly. Correlate with PSA. Dense colonic stool which may suggest constipation. Reading Location: [id number] CC: Dr. Kang Ash MD Foreign Student Adviser Teacher: Signed Normal [facility] Erythrocyte Sed Rateon 12-03 SED RATE 71 mm/hr High 0-20 [facility] Comment on above: Performed By: #### L 501.1105, L100.0100, L501.1400, L500.3400 #### [facility] [address] [place], [place], [address] PSA,Total- [employer]icon 11-18 PSA, DIAGNOSTIC 3.29 ng/mL Normal 0.00-4.00 [facility] Comment on above: Result Comment: This test was performed using the [employer] tPSA method. Measured values of a patient??sample can vary depending on the testing procedure used. PSA values determined on patient samples by different testing procedures cannot be used interchangeably. If there is a change in PSA assays while monitoring therapy, sequential testing should be performed to confirm baseline values. Performed By: #### L 501.9940 #### [facility] [address] [place], [place], [address] MRI UPPER LEG WO/W IVCON LTo n 11-26-2024 MRI UPPER LEG WO/W IVCON LT * * *Final Report* * * DATE OF EXAM: Nov 26 2024 2:25PM [facility] 0261 - MRI UPPER LEG WO/W IVCON LT / PROCEDURE REASON: left leg wwo leg pain * * * * Physician Interpretation * * * * LEFT UPPER LEG MRI: CLINICAL HISTORY: left leg wwo leg pain TECHNIQUE: Routine MR imaging of left upper leg was performed with and without contrast. Contrast: IV administration of 9 ml of Elucirem COMPARISON:None. RESULT: BONE MARROW: Large marrow infiltrating lesion in the left acetabulum with cortical breach medially/laterally along the acetabular wall consistent with metastatic disease. Multiple small marrow infiltrating lesions in bilateral femurs proximally. Similar lesions are also noted in the right acetabulum and bilateral ischial and pubic bones. Postcontrast images demonstrate diffuse enhancement of these metastatic foci. Distal femurs and visualized proximal tibias demonstrate normal marrow signal. MUSCLES: Visualized muscles appear normal in bulk and signal intensity. TENDONS: Visualized tendons are grossly intact. SUBCUTANEOUS TISSUES: No focal mass or collection. NERVES: The visualized nerves normal in caliber and signal intensity. There is no mass or mass effect. JOINTS: Mild to moderate degenerative changes about the hip joints within the limitation of large field of view. OTHER: Enlarged and nodular appearing prostate. IMPRESSION: DIFFUSE OSSEOUS METASTATIC DISEASE DESCRIBED. Foreign Student Adviser Teacher: ZACH Transcribe Date/Time: Nov 30 2024 11:03A Dictated by : MAJOR MICHAELS MD This examination was interpreted and the report reviewed and electronically signed by: MAJOR MICHAELS MD on Nov 30 2024 11:48AM EST [id number] Normal [facility] Absolute lymphocyte countOrd ered By: Sanju Carlos on 11-13-2024 Lymphocytes Auto (Unsp spec) [#/Vol] 2.64 10*3/uL 0.83-4.51 [facility] Absolute neutrophil countOrd ered By: Sanju Carlos on 11-13-2024 Neutrophils (Bld) [#/Vol] 9.6 10*3/uL High 2.0-7.7 [facility] Automated lymphocyte count a s percentage of total leukocytesOrdered By: Sanju Carlos on 11-13-2024 Lymphocytes/100 WBC Auto (Unsp spec) 19.6 % 19-41 [facility] Basophil percentageOrdered B y: Sanju Carlos on 11-13-2024 Basophils/100 WBC (Bld) 0.3 % 0-1 [facility] Bilirubin directOrdered By: Sanju Carlos on 11-13-2024 Bilirubin.direct [Mass/Vol] mg/dL 0.00-0.30 [facility] Bilirubin, totalOrdered By: Sanju Carlos on 11-13-2024 Bilirubin [Mass/Vol] 0.23 mg/dL 0.00-1.30 [facility] CBC W/Diff, Automatedon 10-19 Absolute Lymph 2.64 X10 3/uL Normal 0.83-4.51 [facility] Comment on above: Performed By: #### L 501.1105, L100.0100, L501.1400, L500.3400 #### [facility] [address] [place], [place], [id number] Absolute Neut 9.6 X10 3/uL High 2.0-7.7 [facility] Comment on above: Performed By: #### L 501.1105, L100.0100, L501.1400, L500.3400 #### [facility] [address] [place], [address] Basophils/100 WBC (Bld) 0.3 % Normal 0-1 [facility] Comment on above: Performed By: #### L 501.1105, L100.0100, L501.1400, L500.3400 #### [facility] [address] [place], [address] Eosinophils/100 WBC (Bld) 0.1 % Normal 0-5 [facility] Comment on above: Performed By: #### L 501.1105, L100.0100, L501.1400, L500.3400 #### [facility] [address] [place], [address] Erythrocyte distribution width (RBC) [Ratio] 13.5 % Normal 11.6-14.6 [facility] Comment on above: Performed By: #### L 501.1105, L100.0100, L501.1400, L500.3400 #### [facility] [address] [place], [address] Hematocrit (Bld) [Volume fraction] 38.5 % Low 40-54 [facility] Comment on above: Performed By: #### L 501.1105, L100.0100, L501.1400, L500.3400 #### [facility] [address] [place], [address] Hemoglobin (Bld) [Mass/Vol] 12.6 g/dL Low 13.0-16.5 [facility] Comment on above: Performed By: #### L 501.1105, L100.0100, L501.1400, L500.3400 #### [facility] [address] [place], [address] IG% 0.700 Normal 0.0-0.9 [facility] Comment on above: Result Comment: IG% - Immature Granulocytes (promyelocytes, myelocytes and metamyelocytes) > 1% indicates that a LEFT SHIFT is Present. Performed By: #### L 501.1105, L100.0100, L501.1400, L500.3400 #### [facility] [address] [place], [address] Lymphocytes/100 WBC (Bld) 19.6 % Normal 19-41 [facility] Comment on above: Performed By: #### L 501.1105, L100.0100, L501.1400, L500.3400 #### [facility] [address] [place], [address] MCH (RBC) [Entitic mass] 28.4 pg Normal 27.0-32.0 [facility] Comment on above: Performed By: #### L 501.1105, L100.0100, L501.1400, L500.3400 #### [facility] [address] [place], [address] MCHC (RBC) [Mass/Vol] 32.7 g/dL Normal 32-36 [facility] Comment on above: Performed By: #### L 501.1105, L100.0100, L501.1400, L500.3400 #### [facility] [address] [place], [address] MCV (RBC) [Entitic vol] 86.9 fL Normal 80-94 [facility] Comment on above: Performed By: #### L 501.1105, L100.0100, L501.1400, L500.3400 #### [facility] [address] [place], [address] Monocytes/100 WBC (Bld) 8.3 % Normal 0-10 [facility] Comment on above: Performed By: #### L 501.1105, L100.0100, L501.1400, L500.3400 #### [facility] [address] [place], [address] Neutrophils/100 WBC (Bld) 71.0 % High 47-70 [facility] Comment on above: Performed By: #### L 501.1105, L100.0100, L501.1400, L500.3400 #### [facility] [address] [place], [address] Nucleated RBC (Bld) [#/Vol] 0 10*3/uL Normal 0-5 [facility] Comment on above: Performed By: #### L 501.1105, L100.0100, L501.1400, L500.3400 #### [facility] [address] [place], [address] Platelet mean volume (Bld) [Entitic vol] 10.6 fL Normal 6.2-12.0 [facility] Comment on above: Performed By: #### L 501.1105, L100.0100, L501.1400, L500.3400 #### [facility] [address] [place], [address] Platelets (Bld) [#/Vol] 368 10*3/uL Normal 150-450 [facility] Comment on above: Performed By: #### L 501.1105, L100.0100, L501.1400, L500.3400 #### [facility] [address] [place], [address] RBC (Bld) [#/Vol] 4.43 10*6/uL Low 4.6-6.2 [facility] Comment on above: Performed By: #### L 501.1105, L100.0100, L501.1400, L500.3400 #### [facility] [address] [place], [address] RDW SD 42.4 fl Normal 35.1-43.9 [facility] Comment on above: Performed By: #### L 501.1105, L100.0100, L501.1400, L500.3400 #### [facility] [address] [place], [address] WBC (Bld) [#/Vol] 13.5 10*3/uL High 4.4-11.0 [facility] Comment on above: Performed By: #### L 501.1105, L100.0100, L501.1400, L500.3400 #### [facility] [address] [place], [address] Eosinophil percentageOrdered By: Sanju Carlos on 11-13-2024 Eosinophils/100 WBC (Bld) 0.1 % 0-5 [facility] Erythrocyte distribution wid th ratioOrdered By: Sanju Carlos on 11-13-2024 Erythrocyte distribution width (RBC) [Ratio] 13.5 % 11.6-14.6 [facility] Erythrocyte distribution wid th standard deviationOrdered By: Sanju Carlos on 11-13-2024 Erythrocyte distribution width (RBC) [Ratio] 42.4 fl 35.1-43.9 [facility] Glomerular filtration rate ( GFR) estimation/1.73 sq m using serum, plasma, or whole bOrdered By: Sanju Carlos on 11-13-2024 GFR/1.73 sq M.predicted among non-blacks MDRD (S/P/Bld) [Vol rate/Area] 71 mL/min/{1.73_m2} >60 [facility] Comment on above: mL/min/1.73m2 CKD-EP I Creatinine Equation (2020) Hematocrit Auto (Bld) [Volum e fraction]Ordered By: Sanju Carlos on 11-13-2024 Hematocrit (Bld) [Volume fraction] 38.5 % Low 40-54 [facility] Hemoglobin measurementOrdere d By: Sanju Carlos on 11-13-2024 Hemoglobin (Bld) [Mass/Vol] 12.6 g/dL Low 13.0-16.5 [facility] Immature granulocytes/100 WB C Auto (Bld)Ordered By: Sanju Carlos on 11-13-2024 Immature granulocytes/100 WBC (Bld) 0.700 % 0.0-0.9 [facility] Comment on above: IG% - Immature Granu locytes (promyelocytes, myelocytes and metamyelocytes) > 1% indicates that a LEFT SHIFT is Present. Laboratory - Chemistry and C hemistry - challengeOrdered By: Sanju Carlos on 11-13-2024 AST [Catalytic activity/Vol] 20 U/L <38 [facility] Liver Profileon 11-13-2024 Albumin [Mass/Vol] 3.3 g/dL Low 3.4-4.8 [facility] Comment on above: Performed By: #### L 501.1105, L100.0100, L501.1400, L500.3400 #### [facility] [address] [place], [address] ALK PHOS 93 U/L Normal 40-129 [facility] Comment on above: Performed By: #### L 501.1105, L100.0100, L501.1400, L500.3400 #### [facility] [address] [place], [address] ALT [Catalytic activity/Vol] 11 U/L Normal <=46 [facility] Comment on above: Performed By: #### L 501.1105, L100.0100, L501.1400, L500.3400 #### [facility] [address] [place], [address] AST [Catalytic activity/Vol] 20 U/L Normal <=37 [facility] Comment on above: Performed By: #### L 501.1105, L100.0100, L501.1400, L500.3400 #### [facility] [address] [place], [address] Bilirubin [Mass/Vol] 0.23 mg/dL Normal 0.00-1.30 [facility] Comment on above: Performed By: #### L 501.1105, L100.0100, L501.1400, L500.3400 #### [facility] [address] [place], [address] D BILI < 0.08 Normal 0.00-0.30 [facility] Comment on above: Performed By: #### L 501.1105, L100.0100, L501.1400, L500.3400 #### [facility] [address] [place], [address] Globulin (S) [Mass/Vol] 5.9 g/dL High 2.2-4.2 [facility] Comment on above: Performed By: #### L 501.1105, L100.0100, L501.1400, L500.3400 #### [facility] [address] [place], [address] T PROT 9.2 g/dL High 5.9-8.4 [facility] Comment on above: Performed By: #### L 501.1105, L100.0100, L501.1400, L500.3400 #### [facility] [address] [place], [address] MCV (mean corpuscular volume ) determinationOrdered By: Sanju Carlos on 11-13-2024 MCV (RBC) [Entitic vol] 86.9 fL 80-94 [facility] Mean corpuscular hemoglobin (MCH) determinationOrdered By: Sanju Carlos on 11-13-2024 MCH (RBC) [Entitic mass] 28.4 pg 27.0-32.0 [facility] Mean corpuscular hemoglobin concentration (MCHC) determinationOrdered By: Sanju Carlos on 11-13-2024 MCHC (RBC) [Mass/Vol] 32.7 g/dL 32-36 [facility] Mean platelet volume determi nationOrdered By: Sanju Carlos on 11-13-2024 Platelet mean volume (Bld) [Entitic vol] 10.6 fL 6.2-12.0 [facility] Monocyte percentageOrdered B y: Sanju Carlos on 11-13-2024 Monocytes/100 WBC (Bld) 8.3 % 0-10 [facility] Neutrophil percentageOrdered By: Sanju Carlos on 11-13-2024 Neutrophils/100 WBC (Bld) 71.0 % High 47-70 [facility] Nucleated red blood cell per centageOrdered By: Sanju Carlos on 11-13-2024 Nucleated RBC/100 WBC (Bld) [Ratio] 0 % 0-5 [facility] Platelet countOrdered By: Harriet Carlos on 11-13-2024 Platelets (Bld) [#/Vol] 368 10*3/uL 150-450 [facility] RBC Auto (Bld) [#/Vol]Ordere d By: Sanju Carlos on 11-13-2024 RBC (Bld) [#/Vol] 4.43 10*6/uL Low 4.6-6.2 [facility] Serum Creatinine AND GFRon 0 11-13-2024 Creatinine [Mass/Vol] 1.11 mg/dL Normal 0.70-1.20 [facility] Comment on above: Performed By: #### L 501.1105, L100.0100, L501.1400, L500.3400 #### [facility] [address] [place], [address] GFR/1.73 sq M.predicted among non-blacks MDRD (S/P/Bld) [Vol rate/Area] 71 mL/min/{1.73_m2} Normal >60 [facility] Comment on above: Result Comment: mL/m in/1.73m2 CKD-EPI Creatinine Equation (2020) Performed By: #### L 501.1105, L100.0100, L501.1400, L500.3400 #### [facility] [address] [place], [address] Serum creatinine measurement (mass/volume)Ordered By: Sanju Carlos on 11-13-2024 Creatinine [Mass/Vol] 1.11 mg/dL 0.70-1.20 [facility] Serum globulin measurementOr dered By: Sanju Carlos on 11-13-2024 Globulin (S) [Mass/Vol] 5.9 g/dL High 2.2-4.2 [facility] Serum or plasma alanine espinoza otransferase (ALT) measurementOrdered By: Sanju Carlos on 11-13-2024 ALT [Catalytic activity/Vol] 11 U/L <47 [facility] Serum or plasma albumin angela urement (mass/volume)Ordered By: Sanju Carlos on 11-13-2024 Albumin [Mass/Vol] 3.3 g/dL Low 3.4-4.8 [facility] Serum or plasma alkaline ruslan sphatase measurementOrdered By: Sanju Carlos on 11-13-2024 ALP [Catalytic activity/Vol] 93 U/L 40-129 [facility] Serum or plasma uric acid me asurement (mass/volume)Ordered By: Sanju Carlos on 11-13-2024 Urate [Mass/Vol] 3.9 mg/dL 3.5-7.2 [facility] Comment on above: The drugs N-Acetylcy steine and Metamizole may falsely depress this assay. Total proteinOrdered By: Richard Carlos on 11-13-2024 Protein [Mass/Vol] 9.2 g/dL High 5.9-8.4 [facility] Uric Acidon 11-13-2024 URIC 3.9 mg/dL Normal 3.5-7.2 [facility] Comment on above: Result Comment: The drugs N-Acetylcysteine and Metamizole may falsely depress this assay. Performed By: #### L 501.1105, L100.0100, L501.1400, L500.3400 #### [facility] [address] [place], [address] White blood cell (WBC) count Ordered By: Sanju Carlos on 11-13-2024 WBC (Bld) [#/Vol] 13.5 10*3/uL High 4.4-11.0 [facility] Inital Evaluation (1) - PTon 10-08-2024 Inital Evaluation (1) - PT [facility] [place] [address] / REHABILITATION SERVICES INITIAL EVALUATION MR#: [id number] Acct: [id number] Name: MERLIN HOLMAN Rep #: [id number] : 1950 74 From: Cory Howell PT, Cert. T, OCS Referring Dr.: Dr. Kang Ash MD Status: REG RCR Insurance: O MEDICARE SELF PAY INSURANCE Patient's Visit Information Visit Information Visit Information: MERLIN HOLMAN is a 74 year old M referred to Physical Therapy by Dr. Kang Ash MD with a diagnosis of LEFT HIP PAIN. Date of Evaluation: 10/08/24 Physical Therapist: Cory Howell PT, Cert MDT, OCS Visit Plan Frequency: 2x /Week Duration: 4 Weeks Plan: PT INTERVENTIONS CORE EX'S STRENGTHENING EX'S ( HIP) ,FUNCTIONAL STRENGTHENING AND FLEXABILITY Subjective Subjective: This 74 y/o male presents physical therapy for left leg pain. Patient has had many years 2017. Seen DR vazquez x-rays showed mild OA . Patient has h/o lumbar x-rays 2021 showed DDD mod . Initially many years ago noticed symptoms turning, Medication meloxicam . Location groin to thigh occasional buttuck . Aggravating extending walking ,stairs ,sitting. Alleviating heat mediation. Denies paresthesia/tingling. Coughing/sneezing-. Patient sleeping. No tuama . No abnormal night pain.Patient condition affects QOL and function. Patient goals to decrease pain. VOCATION:retired SOCIAL: HOOBIES: fishing Pain Left Hip: Pain Intensity (Out of 10): 1 Pain Intensity Range: 10 Objective Objective: POSTURE: mild forward posture GAIT: reciprocal pattern NEURO: denies paresthesia/tingling ,reflexes L3-4,L4-5 ,L5-S1 1/3 PALAPTION: unremarkable PROM: hip flexion 110 degrees ,IR 0 ,ER 45 LUMBAR ROM: flexion min loss ,extension min/mod loss ,side glides min/mod loss FLEXABILITY: hamstrings min tight ,piriformis min tight MMT: left quads/hams 4/5 ,( peak force) hip flexion 22.9 ,hip abd 27.8 Special Tests L/S Slump test left side: Negative L/S Slump test right side: Negative L/S Left Straight Leg Raise: Positive L/S Right Straight Leg Raise: Positive Lumbar Standing: Flexion - Mechanical Response: No effect Lumbar Standing: Flexion - Symptoms During Testing: No effect Lumbar Standing: Flexion - Symptoms After Testing: No effect Lumbar Standing: Extension - Mechanical Response: No effect Lumbar Standing: Extension - Symptoms During Testing: No effect Lumbar Standing: Extension - Symptoms After Testing: No effect Lumbar Standing: Right Side Glides - Mechanical Response: No effect Lumbar Standing: Right Side [place] - Symptoms During Testing: No effect Lumbar Standing: Right Side [place] - Symptoms After Testing: No effect Lumbar Standing: Left Side [place] - Mechanical Response: No effect Lumbar Standing: Left Side [place] - Symptoms During Testing: No effect Lumbar Standing: Left Side [place] - Symptoms After Testing: No effect L Hip Scour: Negative L Hip Quadrant - Intraarticular Pathology: Negative L Hip Trendelenberg - Glut Medius: Negative L Hip Resisted Exernal Derotation Test - GT Pain Syndrome: Negative Balance/Special Test Scores Lower Extremity Functional Score: 39 Goals Goal 1:: Patient to be I with HEP hip Goal Time Frame: 4-6 Weeks Goal 2:: Patient to improve strength peak force by 5-10# to improve function to improve gait Goal Time Frame: 4-6 Weeks Goal 3:: Patient to improve LFES score by 5-10 points to improve QOL and function Goal Time Frame: 4-6 Weeks Goal 4:: Patient to demonstrated 50% improvement with less pain and improved function Goal Time Frame: 4-6 Weeks Rehabilitation Potential Physical Therapy Diagnosis: This patient has left hip pain with weakness pain with walking and stairs has OA in hip thus benefit from skilled PT Rehabilitation Potential: Good Anticipated Interventions Patient/Client Instruction: Educate patient on: Condition and Plan of Care For the Purpose of:: To decrease pain, To increase ROM, To improve muscle performance and motor function, To improve ability to perform ADL's, To increase tolerance to activity/condition/posi tion, To improve ability of physical actions for home/community/work/lei sure, To improve gait and locomotor functions, To improve health of tissue, To decrease soft tissue restriction, To reduce risk of recurrence and To improve tolerance to ADL's Therapeutic Exercise to Include: Strength training, Postural training, Flexibilty training and Dynamic Lumbar Stabilization Comment: HIP For the Purpose of:: To decrease pain, To increase ROM, To improve ability to perform ADL's, To increase tolerance to activity/condition/posi tion, To improve ability of physical actions for home/community/work/lei sure, To improve health of tissue, To decrease soft tissue restriction, To increase flexibility/ROM and To improve endurance Text: (more content not included)... Normal [facility] Anion gap in Serum or Plasma Ordered By: Kang Ash on 09-26-2024 Anion gap [Moles/Vol] 13 mmol/L 5-15 [facility] BUN/creatinine ratioOrdered By: Kang Ash on 09-26-2024 Urea nitrogen/Creatinine [Mass ratio] 16.8 mg/mg 10-20 [facility] Bilirubin, totalOrdered By: Kang Ash on 09-26-2024 Bilirubin [Mass/Vol] 0.29 mg/dL 0.00-1.30 [facility] Calculated very low density lipoprotein (VLDL) cholesterol measurementOrdered By: Kang Ash on 09-26-2024 Calculated very low density lipoprotein (VLDL) cholesterol measurement 24 mg/dL [facility] VLDL Cholesterol 24 mg/dL [facility] Carbon dioxide, total [Moles /volume] in Central venous bloodOrdered By: Kang Ash on 09-26-2024 CO2 [Moles/Vol] 24.9 mmol/L 21.0-32.0 [facility] Chloride assayOrdered By: David Ash on 09-26-2024 Chloride [Moles/Vol] 102 mmol/L 98-108 [facility] Comprehensive Metabolic Prof ilon 09-26-2024 Albumin [Mass/Vol] 4.1 g/dL Normal 3.4-4.8 [facility] Comment on above: Performed By: #### L 501.1105, L100.0100, L501.1400, L500.3400 #### [facility] [address] [place], [address] Albumin/Globulin [Mass ratio] 1.1 {ratio} Normal 0.9-2.4 [facility] Comment on above: Performed By: #### L 501.1105, L100.0100, L501.1400, L500.3400 #### [facility] [address] [place], [address] ALK PHOS 111 U/L Normal 40-129 [facility] Comment on above: Performed By: #### L 501.1105, L100.0100, L501.1400, L500.3400 #### [facility] [address] [place], [address] ALT [Catalytic activity/Vol] 16 U/L Normal <=46 [facility] Comment on above: Performed By: #### L 501.1105, L100.0100, L501.1400, L500.3400 #### [facility] [address] [place], [address] AST [Catalytic activity/Vol] 21 U/L Normal <=37 [facility] Comment on above: Performed By: #### L 501.1105, L100.0100, L501.1400, L500.3400 #### [facility] [address] [place], [address] Bilirubin [Mass/Vol] 0.29 mg/dL Normal 0.00-1.30 [facility] Comment on above: Performed By: #### L 501.1105, L100.0100, L501.1400, L500.3400 #### [facility] [address] [place], [address] BUN/CRE 16.8 RATIO Normal 10-20 [facility] Comment on above: Performed By: #### L 501.1105, L100.0100, L501.1400, L500.3400 #### [facility] [address] [place], [address] Calcium [Mass/Vol] 9.4 mg/dL Normal 7.6-11.0 [facility] Comment on above: Performed By: #### L 501.1105, L100.0100, L501.1400, L500.3400 #### [facility] [address] [place], [address] Chloride [Moles/Vol] 102 mmol/L Normal 98-108 [facility] Comment on above: Performed By: #### L 501.1105, L100.0100, L501.1400, L500.3400 #### [facility] [address] [place], [address] CO2 [Moles/Vol] 24.9 mmol/L Normal 21.0-32.0 [facility] Comment on above: Performed By: #### L 501.1105, L100.0100, L501.1400, L500.3400 #### [facility] [address] [place], [address] Creatinine [Mass/Vol] 1.10 mg/dL Normal 0.70-1.20 [facility] Comment on above: Performed By: #### L 501.1105, L100.0100, L501.1400, L500.3400 #### [facility] [address] [place], [address] GAP 13 Normal 5-15 [facility] Comment on above: Performed By: #### L 501.1105, L100.0100, L501.1400, L500.3400 #### [facility] [address] [place], [address] GFR/1.73 sq M.predicted among non-blacks MDRD (S/P/Bld) [Vol rate/Area] 71 mL/min/{1.73_m2} Normal >60 [facility] Comment on above: Result Comment: mL/m in/1.73m2 CKD-EPI Creatinine Equation (2020) Performed By: #### L 501.1105, L100.0100, L501.1400, L500.3400 #### [facility] [address] [place], [address] Globulin (S) [Mass/Vol] 3.8 g/dL Normal 2.2-4.2 [facility] Comment on above: Performed By: #### L 501.1105, L100.0100, L501.1400, L500.3400 #### [facility] [address] [place], [address] Glucose [Mass/Vol] 99 mg/dL Normal 70-99 [facility] Comment on above: Performed By: #### L 501.1105, L100.0100, L501.1400, L500.3400 #### [facility] [address] [place], [address] Potassium [Moles/Vol] 3.7 mmol/L Normal 3.3-5.1 [facility] Comment on above: Performed By: #### L 501.1105, L100.0100, L501.1400, L500.3400 #### [facility] [address] [place], [address] Sodium [Moles/Vol] 139 mmol/L Normal 133-145 [facility] Comment on above: Performed By: #### L 501.1105, L100.0100, L501.1400, L500.3400 #### [facility] [address] [place], [address] T PROT 7.9 g/dL Normal 5.9-8.4 [facility] Comment on above: Performed By: #### L 501.1105, L100.0100, L501.1400, L500.3400 #### [facility] [address] [place], [address] Urea nitrogen [Mass/Vol] 19 mg/dL Normal 4-19 [facility] Comment on above: Performed By: #### L 501.1105, L100.0100, L501.1400, L500.3400 #### [facility] [address] [place], [address] GFR/1.73 sq M.predicted noman g non-blacks MDRD (S/P/Bld) [Vol rate/Area]Ordered By: Kang Ash on 09-26-2024 Estimated GFR (MDRD) Non-Af Amer 71 >60 [facility] Comment on above: mL/min/1.73m2 CKD-EP I Creatinine Equation (2020) Glomerular filtration rate ( GFR) estimation/1.73 sq m using serum, plasma, or whole bOrdered By: Kang Ash on 09-26-2024 GFR/1.73 sq M.predicted among non-blacks MDRD (S/P/Bld) [Vol rate/Area] 71 mL/min/{1.73_m2} >60 [facility] Comment on above: mL/min/1.73m2 CKD-EP I Creatinine Equation (2020) LDL calc ser/plasOrdered By: Kang Ash on 09-26-2024 Cholesterol in LDL [Mass/Vol] 97 mg/dL [facility] Comment on above: Stkvoxsukn=095-920 m g/dL & Higher Jhsi=236 mg/dL or greater LDL Cholesterol, Calculated 97 mg/dL [facility] Comment on above: Gjrmgavnda=205-823 m g/dL & Higher Wcso=232 mg/dL or greater Laboratory - Chemistry and C hemistry - challengeOrdered By: Kang Ash on 09-26-2024 AST [Catalytic activity/Vol] 21 U/L <38 [facility] Lipid Profileon 09-26-2024 CHOL:HDL 4.10 Normal [facility] Comment on above: Performed By: #### L 501.1105, L100.0100, L501.1400, L500.3400 #### [facility] [address] [place], [place], [address] (206) Cholesterol [Mass/Vol] 161 mg/dL Normal <=200 [facility] Comment on above: Result Comment: Chol esterol level, Desirable <200 mg/dL Borderline high cholesterol 200-239 mg/dL High cholesterol >=240 mg/dL Recommendations of the NCEP Adult Treatment Panel for the following risk-cutoff thresholds for the [place] population. Performed By: #### L 501.1105, L100.0100, L501.1400, L500.3400 #### [facility] [address] [place], [address] Cholesterol in HDL [Mass/Vol] 39 mg/dL Low [facility] Comment on above: Result Comment: Edda onal Cholesterol Education Program (NCEP) guidelines: <40 mg/dL: Low HDL-cholesterol (major risk factor for CHD) >= 60 mg/dL: High HDL-cholesterol (negative risk factor for CHD) HDL-cholesterol is affected by a number of factors, e.g. smoking, exercise, hormones, sex and age. Performed By: #### L 501.1105, L100.0100, L501.1400, L500.3400 #### [facility] [address] [place], [address] Cholesterol in LDL [Mass/Vol] 97 mg/dL Normal [facility] Comment on above: Result Comment: Bord ucnbay=634-007 mg/dL Higher Ksjq=851 mg/dL or greater Performed By: #### L 501.1105, L100.0100, L501.1400, L500.3400 #### [facility] [address] [place], [address] Cholesterol in VLDL [Mass/Vol] 24 mg/dL Normal 5-40 [facility] Comment on above: Performed By: #### L 501.1105, L100.0100, L501.1400, L500.3400 #### [facility] [address] [place], [address] Triglyceride [Mass/Vol] 122 mg/dL Normal [facility] Comment on above: Result Comment: The drugs N-Acetylcysteine and Metamizole may falsely depress this assay. Normal range: <150 mg/dL Borderline High: 150-199 mg/dL High: 200-499 mg/dL Very High: >500 mg/dL Performed By: #### L 501.1105, L100.0100, L501.1400, L500.3400 #### [facility] [address] [place], [address] Potassium (Unsp spec) [Mass/ Vol]Ordered By: Kang Ash on 09-26-2024 Potassium [Moles/Vol] 3.7 mmol/L 3.3-5.1 [facility] Potassium measurement (mass/ volume)Ordered By: Kang Ash on 09-26-2024 Potassium (Unsp spec) [Mass/Vol] 3.7 mmol/L 3.3-5.1 [facility] Screening total cholesterol/ high density lipoprotein (HDL) cholesterol ratioOrdered By: Kang Ash on 09-26-2024 Cholesterol.total/Cholest juliet in HDL [Mass ratio] 4.10 {ratio} [facility] Serum creatinine measurement (mass/volume)Ordered By: Kang Ash on 09-26-2024 Creatinine [Mass/Vol] 1.10 mg/dL 0.70-1.20 [facility] Serum globulin measurementOr dered By: Kang Ash on 09-26-2024 Globulin (S) [Mass/Vol] 3.8 g/dL 2.2-4.2 [facility] Serum glucose measurement (m ass/volume)Ordered By: Kang Ash on 09-26-2024 Glucose [Mass/Vol] 99 mg/dL 70-99 [facility] Serum or plasma alanine espinoza otransferase (ALT) measurementOrdered By: Kang Ash on 09-26-2024 ALT [Catalytic activity/Vol] 16 U/L <47 [facility] Serum or plasma albumin angela urement (mass/volume)Ordered By: Kang Ash on 09-26-2024 Albumin [Mass/Vol] 4.1 g/dL 3.4-4.8 [facility] Serum or plasma albumin/glob ulin mass ratioOrdered By: Kang Ash on 09-26-2024 Albumin/Globulin [Mass ratio] 1.1 {ratio} 0.9-2.4 [facility] Serum or plasma alkaline ruslan sphatase measurementOrdered By: Kang Ash on 09-26-2024 ALP [Catalytic activity/Vol] 111 U/L 40-129 [facility] Serum or plasma calcium angela urement (mass/volume)Ordered By: Kang Ash on 09-26-2024 Calcium [Mass/Vol] 9.4 mg/dL 7.6-11.0 [facility] Serum or plasma cholesterol in HDL measurement (mass/volume)Ordered By: Kang Ash on 09-26-2024 Cholesterol in HDL [Mass/Vol] 39 mg/dL Low >40 [facility] Comment on above: National Cholesterol Education Program (NCEP) guidelines:<40 mg/dL: Low HDL-cholesterol (major risk factor for CHD)>= 60 mg/dL: High HDL-cholesterol (negative risk factor for CHD)HDL-cholesterol is affected by a number of factors, e.g. smoking, exercise, hormones, sex and age. Serum or plasma cholesterol measurement (mass/volume)Ordered By: Kang Ash on 09-26-2024 Cholesterol [Mass/Vol] 161 mg/dL <201 [facility] Comment on above: Cholesterol level, D esirable <200 mg/dLBorderline high cholesterol 200-239 mg/dLHigh cholesterol >=240 mg/dLRecommendations of the NCEP Adult Treatment Panel for the following risk-cutoff thresholds for the [place] population. Serum or plasma urea nitroge n measurement (mass/volume)Ordered By: Kang Ash on 09-26-2024 Urea nitrogen [Mass/Vol] 19 mg/dL 4-19 [facility] Sodium levelOrdered By: Kang Ash on 09-26-2024 Sodium [Moles/Vol] 139 mmol/L 133-145 [facility] Total proteinOrdered By: Paula Ash on 09-26-2024 Protein [Mass/Vol] 7.9 g/dL 5.9-8.4 [facility] Triglycerides measurementOrd ered By: Kang Ash on 09-26-2024 Triglyceride [Mass/Vol] 122 mg/dL <199 [facility] Comment on above: The drugs N-Acetylcy steine and Metamizole may falsely depress this assay. Normal range: <150 mg/dLBorderline High: 150-199 mg/dLHigh: 200-499 mg/dLVery High: >500 mg/dL Absolute lymphocyte countOrd ered By: Sanju Carlos on 08-17-2024 Lymphocytes Auto (Unsp spec) [#/Vol] 2.10 10*3/uL 0.83-4.51 [facility] Absolute neutrophil countOrd ered By: Sanju Carlos on 08-17-2024 Neutrophils (Bld) [#/Vol] 4.8 10*3/uL 2.0-7.7 [facility] Automated lymphocyte count a s percentage of total leukocytesOrdered By: Sanju Carlos on 08-17-2024 Lymphocytes/100 WBC Auto (Unsp spec) 27.8 % 19-41 [facility] Basophil percentageOrdered B y: Sanju Carlos on 08-17-2024 Basophils/100 WBC (Bld) 0.4 % 0-1 [facility] Bilirubin directOrdered By: Sanju Carlos on 08-17-2024 Bilirubin.direct [Mass/Vol] 0.11 mg/dL 0.00-0.30 [facility] Bilirubin, totalOrdered By: Sanju Carlos on 08-17-2024 Bilirubin [Mass/Vol] 0.23 mg/dL 0.00-1.30 [facility] CBC W/Diff, Automatedon 07-22 Absolute Lymph 2.10 X10 3/uL Normal 0.83-4.51 [facility] Comment on above: Performed By: #### L 501.1105, L100.0100, L501.1400, L500.3400 #### [facility] [address] [place], [address] Absolute Neut 4.8 X10 3/uL Normal 2.0-7.7 [facility] Comment on above: Performed By: #### L 501.1105, L100.0100, L501.1400, L500.3400 #### [facility] [address] [place], [address] Basophils/100 WBC (Bld) 0.4 % Normal 0-1 [facility] Comment on above: Performed By: #### L 501.1105, L100.0100, L501.1400, L500.3400 #### [facility] [address] [place], [address] Eosinophils/100 WBC (Bld) 0.9 % Normal 0-5 [facility] Comment on above: Performed By: #### L 501.1105, L100.0100, L501.1400, L500.3400 #### [facility] [address] [place], [address] Erythrocyte distribution width (RBC) [Ratio] 13.2 % Normal 11.6-14.6 [facility] Comment on above: Performed By: #### L 501.1105, L100.0100, L501.1400, L500.3400 #### [facility] [address] [place], [address] Hematocrit (Bld) [Volume fraction] 44.5 % Normal 40-54 [facility] Comment on above: Performed By: #### L 501.1105, L100.0100, L501.1400, L500.3400 #### [facility] [address] [place], [address] Hemoglobin (Bld) [Mass/Vol] 14.7 g/dL Normal 13.0-16.5 [facility] Comment on above: Performed By: #### L 501.1105, L100.0100, L501.1400, L500.3400 #### [facility] [address] [place], [address] IG% 0.300 Normal 0.0-0.9 [facility] Comment on above: Result Comment: IG% - Immature Granulocytes (promyelocytes, myelocytes and metamyelocytes) > 1% indicates that a LEFT SHIFT is Present. Performed By: #### L 501.1105, L100.0100, L501.1400, L500.3400 #### [facility] [address] [place], [address] Lymphocytes/100 WBC (Bld) 27.8 % Normal 19-41 [facility] Comment on above: Performed By: #### L 501.1105, L100.0100, L501.1400, L500.3400 #### [facility] [address] [place], [address] MCH (RBC) [Entitic mass] 28.5 pg Normal 27.0-32.0 [facility] Comment on above: Performed By: #### L 501.1105, L100.0100, L501.1400, L500.3400 #### [facility] [address] [place], [address] MCHC (RBC) [Mass/Vol] 33.0 g/dL Normal 32-36 [facility] Comment on above: Performed By: #### L 501.1105, L100.0100, L501.1400, L500.3400 #### [facility] [address] [place], [address] MCV (RBC) [Entitic vol] 86.2 fL Normal 80-94 [facility] Comment on above: Performed By: #### L 501.1105, L100.0100, L501.1400, L500.3400 #### [facility] [address] [place], [address] Monocytes/100 WBC (Bld) 7.5 % Normal 0-10 [facility] Comment on above: Performed By: #### L 501.1105, L100.0100, L501.1400, L500.3400 #### [facility] [address] [place], [address] Neutrophils/100 WBC (Bld) 63.1 % Normal 47-70 [facility] Comment on above: Performed By: #### L 501.1105, L100.0100, L501.1400, L500.3400 #### [facility] [address] [place], [address] Nucleated RBC (Bld) [#/Vol] 0 10*3/uL Normal 0-5 [facility] Comment on above: Performed By: #### L 501.1105, L100.0100, L501.1400, L500.3400 #### [facility] [address] [place], [address] Platelet mean volume (Bld) [Entitic vol] 10.8 fL Normal 6.2-12.0 [facility] Comment on above: Performed By: #### L 501.1105, L100.0100, L501.1400, L500.3400 #### [facility] [address] [place], [address] Platelets (Bld) [#/Vol] 303 10*3/uL Normal 150-450 [facility] Comment on above: Performed By: #### L 501.1105, L100.0100, L501.1400, L500.3400 #### [facility] [address] [place], [address] RBC (Bld) [#/Vol] 5.16 10*6/uL Normal 4.6-6.2 [facility] Comment on above: Performed By: #### L 501.1105, L100.0100, L501.1400, L500.3400 #### [facility] [address] [place], [address] RDW SD 41.2 fl Normal 35.1-43.9 [facility] Comment on above: Performed By: #### L 501.1105, L100.0100, L501.1400, L500.3400 #### [facility] [address] [place], [address] WBC (Bld) [#/Vol] 7.6 10*3/uL Normal 4.4-11.0 [facility] Comment on above: Performed By: #### L 501.1105, L100.0100, L501.1400, L500.3400 #### [facility] [address] [place], [address] Eosinophil percentageOrdered By: Sanju Carlos on 08-17-2024 Eosinophils/100 WBC (Bld) 0.9 % 0-5 [facility] Erythrocyte distribution wid th ratioOrdered By: Sanju Carlos on 08-17-2024 Erythrocyte distribution width (RBC) [Ratio] 13.2 % 11.6-14.6 [facility] Erythrocyte distribution wid th standard deviationOrdered By: Sanju Carlos on 08-17-2024 Erythrocyte distribution width (RBC) [Entitic vol] 41.2 fL 35.1-43.9 [facility] Erythrocyte distribution width (RBC) [Ratio] 41.2 fl 35.1-43.9 [facility] GFR/1.73 sq M.predicted noman g non-blacks MDRD (S/P/Bld) [Vol rate/Area]Ordered By: Sanju Carlos on 08-17-2024 Estimated GFR (MDRD) Non-Af Amer 70 >60 [facility] Comment on above: mL/min/1.73m2 CKD-EP I Creatinine Equation (2020) Glomerular filtration rate ( GFR) estimation/1.73 sq m using serum, plasma, or whole bOrdered By: Sanju Carlos on 08-17-2024 GFR/1.73 sq M.predicted among non-blacks MDRD (S/P/Bld) [Vol rate/Area] 70 mL/min/{1.73_m2} >60 [facility] Comment on above: mL/min/1.73m2 CKD-EP I Creatinine Equation (2020) Hematocrit Auto (Bld) [Volum e fraction]Ordered By: Sanju Carlos on 08-17-2024 Hematocrit (Bld) [Volume fraction] 44.5 % 40-54 [facility] Hemoglobin measurementOrdere d By: Sanju Carlos on 08-17-2024 Hemoglobin (Bld) [Mass/Vol] 14.7 g/dL 13.0-16.5 [facility] Hips B/L min 2 views w/ Pelv renetta 08-17-2024 Hips B/L min 2 views w/ Pelvis [facility] [address] [place] [address] ( Hips B/L min 2 views w/ Pelvis MR#: [id number] Acct: [id number] Name: MERLIN HOLMAN Rep #: [id number] : 1950 M 74 From: Car Frias MD PCP: Dr. Kang Ash MD Status: REG CLI Study: Hips B/L min 2 views w/ Pelvis Date of Exam: 0 08/17/24 Exam# [id number] Ordering Dr: Kang Ash MD PROCEDURE: HIPS B/L MIN 2 VIEWS W/ PELVIS REASON FOR EXAM: Hip pain, pain through left groin that radiates down leg TECHNIQUE: AP view of the pelvis and AP and lateral views of the right and the left hip, 5 total images COMPARISON: None. FINDINGS: No fracture or dislocation. The joint spaces appear within limits. Symmetric appearing SI joints and pubic symphysis appear within limits. No osseous lesion identified. Mild osteoarthrosis lateral aspect of the right and left hip. Possible changes of calcific tendinopathy at the right greater trochanter. RAD/Hips B/L min 2 views w/ Pelvis IMPRESSION: Mild bilateral hip osteoarthrosis. Reading Location: [facility] CC: Dr. 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 Laboratory - Chemistry and C hemistry - challengeOrdered By: Sanju Carlos on 08-17-2024 AST [Catalytic activity/Vol] 20 U/L <38 [facility] Liver Profileon 08-17-2024 Albumin [Mass/Vol] 4.2 g/dL Normal 3.4-4.8 [facility] Comment on above: Order Comment: CBCD Performed By: #### L 501.1105, L100.0100, L501.1400, L500.3400 #### [facility] [address] [place], [address] ALK PHOS 125 U/L Normal 40-129 [facility] Comment on above: Order Comment: CBCD Performed By: #### L 501.1105, L100.0100, L501.1400, L500.3400 #### [facility] [address] [place], [address] ALT [Catalytic activity/Vol] 16 U/L Normal <=46 [facility] Comment on above: Order Comment: CBCD Performed By: #### L 501.1105, L100.0100, L501.1400, L500.3400 #### [facility] [address] [place], [address] AST [Catalytic activity/Vol] 20 U/L Normal <=37 [facility] Comment on above: Order Comment: CBCD Performed By: #### L 501.1105, L100.0100, L501.1400, L500.3400 #### [facility] [address] [place], [address] Bilirubin [Mass/Vol] 0.23 mg/dL Normal 0.00-1.30 [facility] Comment on above: Order Comment: CBCD Performed By: #### L 501.1105, L100.0100, L501.1400, L500.3400 #### [facility] [address] [place], [address] Bilirubin.direct [Mass/Vol] 0.11 mg/dL Normal 0.00-0.30 [facility] Comment on above: Order Comment: CBCD Performed By: #### L 501.1105, L100.0100, L501.1400, L500.3400 #### [facility] [address] [place], [address] Globulin (S) [Mass/Vol] 3.6 g/dL Normal 2.2-4.2 [facility] Comment on above: Order Comment: CBCD Performed By: #### L 501.1105, L100.0100, L501.1400, L500.3400 #### [facility] [address] [place], [address] T PROT 7.9 g/dL Normal 5.9-8.4 [facility] Comment on above: Order Comment: CBCD Performed By: #### L 501.1105, L100.0100, L501.1400, L500.3400 #### [facility] [address] [place], [address] Lymphocytes Auto (Unsp spec) [#/Vol]Ordered By: Sanju Carlos on 08-17-2024 Lymphocytes (Bld) [#/Vol] 2.10 10*3/uL 0.83-4.5 1 [facility] Lymphocytes/100 WBC Auto (Un sp spec)Ordered By: Sanju Carlos on 08-17-2024 Lymphocytes/100 WBC (Bld) 27.8 % 19-41 [facility] MCV (mean corpuscular volume ) determinationOrdered By: Sanju Carlos on 08-17-2024 MCV (RBC) [Entitic vol] 86.2 fL 80-94 [facility] Mean corpuscular hemoglobin (MCH) determinationOrdered By: Sanju Carlos on 08-17-2024 MCH (RBC) [Entitic mass] 28.5 pg 27.0-32.0 [facility] Mean corpuscular hemoglobin concentration (MCHC) determinationOrdered By: Sanju Carlos on 08-17-2024 MCHC (RBC) [Mass/Vol] 33.0 g/dL 32-36 [facility] Mean platelet volume determi nationOrdered By: Sanju Carlos on 08-17-2024 Platelet mean volume (Bld) [Entitic vol] 10.8 fL 6.2-12.0 [facility] Monocyte percentageOrdered B y: Sanju Carlos on 08-17-2024 Monocytes/100 WBC (Bld) 7.5 % 0-10 [facility] Neutrophil percentageOrdered By: Sanju Carlos on 08-17-2024 Neutrophils/100 WBC (Bld) 63.1 % 47-70 [facility] Nucleated red blood cell per centageOrdered By: Sanju Carlos on 08-17-2024 Nucleated RBC/100 WBC (Bld) [Ratio] 0 % 0-5 [facility] Platelet countOrdered By: Harriet Carlos on 08-17-2024 Platelets (Bld) [#/Vol] 303 10*3/uL 150-450 [facility] RBC Auto (Bld) [#/Vol]Ordere d By: Sanju Carlos on 08-17-2024 RBC (Bld) [#/Vol] 5.16 10*6/uL 4.6-6.2 [facility] Serum Creatinine AND GFRon 0 08-17-2024 Creatinine [Mass/Vol] 1.12 mg/dL Normal 0.70-1.20 [facility] Comment on above: Performed By: #### L 501.1105, L100.0100, L501.1400, L500.3400 #### [facility] [address] [place], [address] GFR/1.73 sq M.predicted among non-blacks MDRD (S/P/Bld) [Vol rate/Area] 70 mL/min/{1.73_m2} Normal >60 [facility] Comment on above: Result Comment: mL/m in/1.73m2 CKD-EPI Creatinine Equation (2020) Performed By: #### L 501.1105, L100.0100, L501.1400, L500.3400 #### [facility] [address] [place], [address] Serum creatinine measurement (mass/volume)Ordered By: Sanju Carlos on 08-17-2024 Creatinine [Mass/Vol] 1.12 mg/dL 0.70-1.20 [facility] Serum globulin measurementOr dered By: Sanju Carlos on 08-17-2024 Globulin (S) [Mass/Vol] 3.6 g/dL 2.2-4.2 [facility] Serum or plasma alanine espinoza otransferase (ALT) measurementOrdered By: Sanju Carlos on 08-17-2024 ALT [Catalytic activity/Vol] 16 U/L <47 [facility] Serum or plasma albumin angela urement (mass/volume)Ordered By: Sanju Carlos on 08-17-2024 Albumin [Mass/Vol] 4.2 g/dL 3.4-4.8 [facility] Serum or plasma alkaline ruslan sphatase measurementOrdered By: Sanju Su on 08-17-2024 ALP [Catalytic activity/Vol] 125 U/L 40-129 [facility] Serum or plasma uric acid me asurement (mass/volume)Ordered By: Sanju Carlos on 08-17-2024 Urate [Mass/Vol] 4.0 mg/dL 3.5-7.2 [facility] Comment on above: The drugs N-Acetylcy steine and Metamizole may falsely depress this assay. Total proteinOrdered By: Richard aranda Breanna on 08-17-2024 Protein [Mass/Vol] 7.9 g/dL 5.9-8.4 [facility] Uric Acidon 08-17-2024 URIC 4.0 mg/dL Normal 3.5-7.2 [facility] Comment on above: Result Comment: The drugs N-Acetylcysteine and Metamizole may falsely depress this assay. Performed By: #### L 501.1105, L100.0100, L501.1400, L500.3400 #### [facility] [address] [place], [address] White blood cell (WBC) count Ordered By: Sanju Carlos on 08-17-2024 WBC (Bld) [#/Vol] 7.6 10*3/uL 4.4-11.0 [facility] ALISSA w/ Reflex Mult Confirmon 06-21-2024 ALISSA,DIRECT Negative Normal Negative [facility] Comment on above: Result Comment: Perf ormed at: - [facility] [address] [id number] Captain Waiter: Kendall Olivera PhD, Phone: [phone] Performed By: #### L 501.1105, L100.0100, L501.1400, [id number] #### [facility] [address] [place], [address] Anti-Smooth Muscle ABSon ANTISMOOTH MUSC 13 Units Normal 0-19 [facility] Comment on above: Result Comment: Nega tive 0 - 19 Weak positive 20 - 30 Moderate to strong positive >30 Actin Antibodies are found in 52-85% of patients with autoimmune hepatitis or chronic active hepatitis and in 22% of patients with primary biliary cirrhosis. Performed at: [facility] [place] [address] [place], [place] [id number] Captain Waiter: Kendall Olivera PhD, Phone: [phone] Performed By: #### L 501.1105, L100.0100, L501.1400, L500.3400 #### [facility] [address] [place], [address] Complement C3on 06-21-2024 COMP C3 146 mg/dL Normal 82-167 [facility] Comment on above: Performed By: #### L 501.1105, L100.0100, L501.1400, L500.3400 #### [facility] [address] [place], [address] Complement C4on 06-21-2024 COMPLEMENT, C4 24 mg/dL Normal 12-38 [facility] Comment on above: Performed By: #### L 501.1105, L100.0100, L501.1400, L500.3400 #### [facility] [address] [place], [address] ALISSA serumOrdered By: Sanju Carlos on 06-18-2024 Anti-Nuclear Antibody Screen Negative Negative [facility] Comment on above: Performed at: [facility] [id number] [place], [place] [id number] Director: Kendall Olivera PhD, Phone: [phone] Absolute neutrophil countOrd ered By: Sanju Carlos on 06-18-2024 Neutrophils (Bld) [#/Vol] 4.8 10*3/uL 2.0-7.7 [facility] Actin IgG QnOrdered By: Earl Carlos on 06-18-2024 Anti-Smooth Muscle Antibody 13 Units 0-19 [facility] Comment on above: Negative 0 - 19 Weak positive 20 - 30 Moderate to strong positive >30 Actin Antibodies are found in 52-85% of patients with autoimmune hepatitis or chronic active hepatitis and in 22% of patients with primary biliary cirrhosis.Performed at: [facility] [address] [id number] Director: Kendall Olivera PhD, Phone: [phone] Anti-dsDNA Abon 06-18-2024 ANTI-DNA (DS)AB TNP Normal [facility] Comment on above: Performed By: #### L 501.1105, L100.0100, L501.1400, L500.3400 #### [facility] [address] [place], [place], [id number] Basophil percentageOrdered B y: Sanju Carlos on 06-18-2024 Basophils/100 WBC (Bld) 0.6 % 0-1 [facility] Bilirubin Test strip Ql (U)O rdered By: Sanju Carlos on 06-18-2024 Bilirubin Ql (U) Negative Negative [facility] Bilirubin directOrdered By: Sanju Carlos on 06-18-2024 Bilirubin.direct [Mass/Vol] 0.06 mg/dL 0.00-0.30 [facility] Bilirubin, totalOrdered By: Sanju Carlos on 06-18-2024 Bilirubin [Mass/Vol] 0.90 mg/dL 0.20-1.00 [facility] Comment on above: For patients on eltr ombopag therapy, use of Dimension Lorena TBIL is not recommended. CBC W/Diff, Automatedon 05-22 Absolute Lymph 1.71 X10 3/uL Normal 0.83-4.51 [facility] Comment on above: Performed By: #### L 501.1105, L100.0100, L501.1400, L500.3400 #### [facility] [address] [place], [place], [id number] (578) Absolute Neut 4.8 X10 3/uL Normal 2.0-7.7 [facility] Comment on above: Performed By: #### L 501.1105, L100.0100, L501.1400, L500.3400 #### [facility] [address] [place], [address] Basophils/100 WBC (Bld) 0.6 % Normal 0-1 [facility] Comment on above: Performed By: #### L 501.1105, L100.0100, L501.1400, L500.3400 #### [facility] [address] [place], [address] Eosinophils/100 WBC (Bld) 1.3 % Normal 0-5 [facility] Comment on above: Performed By: #### L 501.1105, L100.0100, L501.1400, L500.3400 #### [facility] [address] [place], [address] Erythrocyte distribution width (RBC) [Ratio] 13.2 % Normal 11.6-14.6 [facility] Comment on above: Performed By: #### L 501.1105, L100.0100, L501.1400, L500.3400 #### [facility] [address] [place], [address] Hematocrit (Bld) [Volume fraction] 45.4 % Normal 40-54 [facility] Comment on above: Performed By: #### L 501.1105, L100.0100, L501.1400, L500.3400 #### [facility] [address] [place], [address] Hemoglobin (Bld) [Mass/Vol] 15.0 g/dL Normal 13.0-16.5 [facility] Comment on above: Performed By: #### L 501.1105, L100.0100, L501.1400, L500.3400 #### [facility] [address] [place], [address] IG% 0.300 Normal 0.0-0.9 [facility] Comment on above: Result Comment: IG% - Immature Granulocytes (promyelocytes, myelocytes and metamyelocytes) > 1% indicates that a LEFT SHIFT is Present. Performed By: #### L 501.1105, L100.0100, L501.1400, L500.3400 #### [facility] [address] [place], [address] Lymphocytes/100 WBC (Bld) 23.8 % Normal 19-41 [facility] Comment on above: Performed By: #### L 501.1105, L100.0100, L501.1400, L500.3400 #### [facility] [address] [place], [address] MCH (RBC) [Entitic mass] 28.3 pg Normal 27.0-32.0 [facility] Comment on above: Performed By: #### L 501.1105, L100.0100, L501.1400, L500.3400 #### [facility] [address] [place], [address] MCHC (RBC) [Mass/Vol] 33.0 g/dL Normal 32-36 [facility] Comment on above: Performed By: #### L 501.1105, L100.0100, L501.1400, L500.3400 #### [facility] [address] [place], [address] MCV (RBC) [Entitic vol] 85.7 fL Normal 80-94 [facility] Comment on above: Performed By: #### L 501.1105, L100.0100, L501.1400, L500.3400 #### [facility] [address] [place], [address] Monocytes/100 WBC (Bld) 7.4 % Normal 0-10 [facility] Comment on above: Performed By: #### L 501.1105, L100.0100, L501.1400, L500.3400 #### [facility] [address] [place], [address] Neutrophils/100 WBC (Bld) 66.6 % Normal 47-70 [facility] Comment on above: Performed By: #### L 501.1105, L100.0100, L501.1400, L500.3400 #### [facility] [address] [place], [address] Nucleated RBC (Bld) [#/Vol] 0 10*3/uL Normal 0-5 [facility] Comment on above: Performed By: #### L 501.1105, L100.0100, L501.1400, L500.3400 #### [facility] [address] [place], [address] Platelet mean volume (Bld) [Entitic vol] 10.2 fL Normal 6.2-12.0 [facility] Comment on above: Performed By: #### L 501.1105, L100.0100, L501.1400, L500.3400 #### [facility] [address] [place], [address] Platelets (Bld) [#/Vol] 288 10*3/uL Normal 150-450 [facility] Comment on above: Performed By: #### L 501.1105, L100.0100, L501.1400, L500.3400 #### [facility] [address] [place], [address] RBC (Bld) [#/Vol] 5.30 10*6/uL Normal 4.6-6.2 [facility] Comment on above: Performed By: #### L 501.1105, L100.0100, L501.1400, L500.3400 #### [facility] [address] [place], [address] RDW SD 40.9 fl Normal 35.1-43.9 [facility] Comment on above: Performed By: #### L 501.1105, L100.0100, L501.1400, L500.3400 #### [facility] [address] [place], [address] WBC (Bld) [#/Vol] 7.2 10*3/uL Normal 4.4-11.0 [facility] Comment on above: Performed By: #### L 501.1105, L100.0100, L501.1400, L500.3400 #### [facility] [address] [place], [address] Centromere B antibody assayO rdered By: Sanju Carlos on 06-18-2024 Centromere B Antibody [facility] Comment on above: Test not performed Chromatin antibody assayOrde red By: Sanju Carlos on 06-18-2024 Antichromatin Antibodies [facility] Comment on above: Test not performed Complement C3 assayOrdered B y: Sanju Carlos on 06-18-2024 Complement C3 146 mg/dL 82-167 [facility] Complement C4 [Mass/Vol]Orde red By: Sanju Carlos on 06-18-2024 Complement C4 24 mg/dL 12-38 [facility] DNA double strand Ab Qn (S)O rdered By: Sanju Carlos on 06-18-2024 Anti-Double Strand DNA Antibody [facility] Comment on above: Test not performed Eosinophil percentageOrdered By: Sanju Carlos on 06-18-2024 Eosinophils/100 WBC (Bld) 1.3 % 0-5 [facility] Epithelial cells.squamous LM Ql (Urine sed)Ordered By: Sanju Carlos on 06-18-2024 Epithelial cells.squamous LM.HPF (Urine sed) [#/Area] 0 /[HPF] 0-5 [facility] Erythrocyte distribution wid th ratioOrdered By: Sanju Carlos on 06-18-2024 Erythrocyte distribution width (RBC) [Ratio] 13.2 % 11.6-14.6 [facility] Erythrocyte distribution wid th standard deviationOrdered By: Sanju Carlos on 06-18-2024 Erythrocyte distribution width (RBC) [Entitic vol] 40.9 fL 35.1-43.9 [facility] Estimated glomerular filtrat ion rate (GFR) AmericanOrdered By: Sanju Carlos on 06-18-2024 Estimated GFR (MDRD) Amer 82 mL/min >60 [facility] Comment on above: GFR Calc Glomerular filtration rate ( GFR) estimationOrdered By: Sanju Carlos on 06-18-2024 Estimated GFR (MDRD) Non-Af Amer 68 mL/min >60 [facility] Comment on above: Non- GFR Calc Glucose Ql (U)Ordered By: Harriet Carlos on 06-18-2024 Urine Glucose (UA) Normal mg/dl Normal [facility] Hematocrit Auto (Bld) [Volum e fraction]Ordered By: Sanju Carlos on 06-18-2024 Hematocrit (Bld) [Volume fraction] 45.4 % 40-54 [facility] Hemoglobin measurementOrdere d By: Sanju Carlos on 06-18-2024 Hemoglobin (Bld) [Mass/Vol] 15.0 g/dL 13.0-16.5 [facility] Immature granulocytes/100 WB C Auto (Bld)Ordered By: Sanju Carlos on 06-18-2024 Immature granulocytes/100 WBC (Bld) 0.300 % 0.0-0.9 [facility] Comment on above: IG% - Immature Granu locytes (promyelocytes, myelocytes and metamyelocytes) > 1% indicates that a LEFT SHIFT is Present. Harriet-1 antibody assayOrdered B y: Sanju Carlos on 06-18-2024 HARRIET-1 Antibody TNP [facility] Comment on above: Test not performed Ketones Test strip Ql (U)Ord ered By: Sanju Carlos on 06-18-2024 Ketones Ql (U) Negative Negative [facility] - Chemistry and C hemistry - challengeOrdered By: Sanju Carlos on 06-18-2024 AST [Catalytic activity/Vol] 23 U/L 15-37 [facility] Liver Profileon 06-18-2024 Albumin [Mass/Vol] 3.6 g/dL Normal 3.2-5.0 [facility] Comment on above: Performed By: #### L 501.1105, L100.0100, L501.1400, L500.3400 #### [facility] [address] [place], [address] ALK P 124 U/L High 45-117 [facility] Comment on above: Performed By: #### L 501.1105, L100.0100, L501.1400, L500.3400 #### [facility] [address] [place], [address] ALT [Catalytic activity/Vol] 29 U/L Normal 16-61 [facility] Comment on above: Performed By: #### L 501.1105, L100.0100, L501.1400, L500.3400 #### [facility] [address] [place], [address] AST [Catalytic activity/Vol] 23 U/L Normal 15-37 [facility] Comment on above: Performed By: #### L 501.1105, L100.0100, L501.1400, L500.3400 #### [facility] [address] [place], [address] Bilirubin [Mass/Vol] 0.90 mg/dL Normal 0.20-1.00 [facility] Comment on above: Result Comment: For patients on eltrombopag therapy, use of Dimension Lorena TBIL is not recommended. Performed By: #### L 501.1105, L100.0100, L501.1400, L500.3400 #### [facility] [address] [place], [address] Bilirubin.direct [Mass/Vol] 0.06 mg/dL Normal 0.00-0.30 [facility] Comment on above: Performed By: #### L 501.1105, L100.0100, L501.1400, L500.3400 #### [facility] [address] [place], [address] Globulin (S) [Mass/Vol] 4.5 g/dL High 2.2-4.2 [facility] Comment on above: Performed By: #### L 501.1105, L100.0100, L501.1400, L500.3400 #### [facility] [address] [place], [address] T PROT 8.1 g/dL Normal 6.4-8.2 [facility] Comment on above: Performed By: #### L 501.1105, L100.0100, L501.1400, L500.3400 #### [facility] [address] [place], [address] Lymphocytes Auto (Unsp spec) [#/Vol]Ordered By: Sanju Carlos on 06-18-2024 Lymphocytes (Bld) [#/Vol] 1.71 10*3/uL 0.83-4.5 1 [facility] Lymphocytes/100 WBC Auto (Un sp spec)Ordered By: Sanju Carlos on 06-18-2024 Lymphocytes/100 WBC (Bld) 23.8 % 19-41 [facility] MCV (mean corpuscular volume ) determinationOrdered By: Sanju Carlos on 06-18-2024 MCV (RBC) [Entitic vol] 85.7 fL 80-94 [facility] Mean corpuscular hemoglobin (MCH) determinationOrdered By: Sanju Carlos on 06-18-2024 MCH (RBC) [Entitic mass] 28.3 pg 27.0-32.0 [facility] Mean corpuscular hemoglobin concentration (MCHC) determinationOrdered By: Sanju Carlos on 06-18-2024 MCHC (RBC) [Mass/Vol] 33.0 g/dL 32-36 [facility] Mean platelet volume determi nationOrdered By: Sanju Carlos on 06-18-2024 Platelet mean volume (Bld) [Entitic vol] 10.2 fL 6.2-12.0 [facility] Microscopic analysis of urin e for red blood cells (RBC)Ordered By: Sanju Carlos on 06-18-2024 Urine RBC 25-50 SEEN /hpf 0-5 [facility] Monocyte percentageOrdered B y: Sanju Carlos on 06-18-2024 Monocytes/100 WBC (Bld) 7.4 % 0-10 [facility] Mucus LM Ql (Urine sed)Order ed By: Sanju Carlos on 06-18-2024 Mucus Ql (Urine sed) 0 SEEN /hpf [facility] Neutrophil percentageOrdered By: Sanju Carlos on 06-18-2024 Neutrophils/100 WBC (Bld) 66.6 % 47-70 [facility] Nitrite Test strip Ql (U)Ord ered By: Sanju Carlos on 06-18-2024 Nitrite Ql (U) Negative Negative [facility] Nucleated red blood cell per centageOrdered By: Sanju Carlos on 06-18-2024 Nucleated RBC/100 WBC (Bld) [Ratio] 0 % 0-5 [facility] Platelet countOrdered By: Harriet Carlos on 06-18-2024 Platelets (Bld) [#/Vol] 288 10*3/uL 150-450 [facility] Protein Test strip Ql (U)Ord ered By: Sanju Carlos on 06-18-2024 Protein Ql (U) 15 mg/dl High Negative [facility] Protein+Creatinine Ratio,Uri neon 06-18-2024 PROT:CRE RATIO 87 mg/g CRE Normal 0-200 [facility] Comment on above: Performed By: #### L 501.1105, L100.0100, L501.1400, L500.3400 #### [facility] [address] [place], [address] Protein (U) [Mass/Vol] 13.9 mg/dL High <11.9 [facility] Comment on above: Performed By: #### L 501.1105, L100.0100, L501.1400, L500.3400 #### [facility] [address] [place], [address] UR CREAT 160.00 mg/dL Normal NO RANGE EST. [facility] Comment on above: Performed By: #### L 501.1105, L100.0100, L501.1400, L500.3400 #### [facility] [address] [place], [address] Protein/Creatinine (U) [Mass ratio]Ordered By: Sanju Carlos on 06-18-2024 Urine Protein/Creatinine Ratio 87 mg/g CRE 0-200 [facility] RBC Auto (Bld) [#/Vol]Ordere d By: Sanju Carlos on 06-18-2024 RBC (Bld) [#/Vol] 5.30 10*6/uL 4.6-6.2 [facility] SOFTWARE CONFIGURATION SPECIALIST abOrdered By: Sanju Carlos on 06-18-2024 SOFTWARE CONFIGURATION SPECIALIST Antibody [facility] Comment on above: Test not performed Random urine protein measure mentOrdered By: Sanju Carlos on 06-18-2024 Protein (U) [Mass/Vol] 13.9 mg/dL High 0.0-11.8 [facility] SCL-70 extractable nuclear A b Qn (S)Ordered By: Sanju Carlos on 06-18-2024 Scl-70 (Scleroderma) Antibody [facility] Comment on above: Test not performed SS-A IgG antibody assayOrder ed By: Sanju Carlos on 06-18-2024 SS-A/Ro IgG Antibody [facility] Comment on above: Test not performed SS-B IgG antibody assayOrder ed By: Sanju Carlos on 06-18-2024 SS-B/La IgG Antibody [facility] Comment on above: Test not performed Serum Creatinine AND GFRon 1 Creatinine [Mass/Vol] 1.13 mg/dL Normal 0.70-1.30 [facility] Comment on above: Result Comment: The validity of the calculated GFR GFRAA in patients over 70 years has not been determined. Clinical correlation is essential. Performed By: #### L 501.1105, L100.0100, L501.1400, L500.3400 #### [facility] [address] [place], [address] EST GFR - AA 82 mL/min Normal >60 [facility] Comment on above: Result Comment: Afri can Marshallese GFR Calc Performed By: #### L 501.1105, L100.0100, L501.1400, L500.3400 #### [facility] [address] [place], [place], [address] GFR/1.73 sq M.predicted among non-blacks MDRD (S/P/Bld) [Vol rate/Area] 68 mL/min/{1.73_m2} Normal >60 [facility] Comment on above: Result Comment: Non- GFR Calc Performed By: #### L 501.1105, L100.0100, L501.1400, L500.3400 #### [facility] [address] [place], [place], [address] Serum globulin measurementOr dered By: Sanju Carlos on 06-18-2024 Globulin (S) [Mass/Vol] 4.5 g/dL High 2.2-4.2 [facility] Serum or plasma alanine espinoza otransferase (ALT) measurementOrdered By: Sanju Carlos on 06-18-2024 ALT [Catalytic activity/Vol] 29 U/L 16-61 [facility] Serum or plasma albumin angela urement (mass/volume)Ordered By: Sanju Carlos on 06-18-2024 Albumin [Mass/Vol] 3.6 g/dL 3.2-5.0 [facility] Serum or plasma alkaline ruslan sphatase measurementOrdered By: Sanju Carlos on 06-18-2024 ALP [Catalytic activity/Vol] 124 U/L High 45-117 [facility] Serum or plasma creatinine m easurement (mass/volume)Ordered By: Sanju Carlos on 06-18-2024 Creatinine [Mass/Vol] 1.13 mg/dL 0.70-1.30 [facility] Comment on above: The validity of the calculated GFR & GFRAA in patients over 70 years has not been determined. Clinical correlation is essential. Serum or plasma uric acid me asurement (mass/volume)Ordered By: Sanju Carlos on 06-18-2024 Urate [Mass/Vol] 4.1 mg/dL 3.5-7.2 [facility] Comment on above: The drugs N-Acetylcy steine and Metamizole may falsely depress this assay. Ferguson antibody assayOrdered By: Sanju Carlos on 06-18-2024 SM Antibody TNP [facility] Comment on above: Test not performed Total proteinOrdered By: Richard Carlos on 06-18-2024 Protein [Mass/Vol] 8.1 g/dL 6.4-8.2 [facility] Uric Acidon 06-18-2024 URIC 4.1 mg/dL Normal 3.5-7.2 [facility] Comment on above: Result Comment: The drugs N-Acetylcysteine and Metamizole may falsely depress this assay. Performed By: #### L 501.1105, L100.0100, L501.1400, L500.3400 #### [facility] [address] [place], [address] Urinalysis, Completeon 06-18 BACTERIA 1+ /hpf Normal None Seen [facility] Comment on above: Order Comment: CBCD Performed By: #### L 501.1105, L100.0100, L501.1400, L500.3400 #### [facility] [address] [place], [address] RBC 25-50 SEEN Normal 0-5 [facility] Comment on above: Order Comment: CBCD Performed By: #### L 501.1105, L100.0100, L501.1400, L500.3400 #### [facility] [address] [place], [address] WBC 10-25 SEEN Normal 0-[address] [place] [address] Comment on above: Order Comment: CBCD Performed By: #### L 501.1105, L100.0100, L501.1400, L500.3400 #### [facility] [address] [place], [address] EPI,SQUAMOUS 0 SEEN Normal 0-[address] [place] [address] Comment on above: Order Comment: CBCD Performed By: #### L 501.1105, L100.0100, L501.1400, L500.3400 #### [facility] [address] [place], [address] Mucus Ql (Urine sed) 0 SEEN Normal [facility] Comment on above: Order Comment: CBCD Performed By: #### L 501.1105, L100.0100, L501.1400, L500.0072 #### [facility] [address] [place], [address] Urine blood detectionOrdered By: Sanju Carlos on 06-18-2024 Urine Occult Blood 50 /ul High Negative [facility] Urine clarityOrdered By: Richard Carlos on 06-18-2024 Clarity (U) Clear Clear [facility] Urine color determinationOrd ered By: Sanju Carlos on 06-18-2024 Color (U) Yellow Yellow [facility] Urine creatinine measurement (mass/volume)Ordered By: Sanju Carlos on 06-18-2024 Creatinine (U) [Mass/Vol] 160.00 mg/dL NO RANGE EST. [facility] Urine leukocyte esterase det ection by dipstickOrdered By: Sanju Carlos on 06-18-2024 Leukocyte esterase Test strip Ql (U) 25 /ul High Negative [facility] Urine pHOrdered By: Sanju Senior u on 06-18-2024 pH (U) 6.0 [pH] 5.0 - 8.0 [facility] Urine sediment bacteria coun t by microscopy (number/high power field)Ordered By: Sanju Carlos on 06-18-2024 Bacteria LM.HPF (Urine sed) [#/Area] 1 /[HPF] None Seen [facility] Urine specific gravity measu rementOrdered By: Sanju Carlos on 06-18-2024 Specific gravity (U) [Rel density] 1.015 1.002-1.03 0 [facility] Urobilinogen Ql (U)Ordered B y: Sanju Carlos on 06-18-2024 Urobilinogen (U) [Mass/Vol] 1 mg/dL High Normal [facility] White blood cell (WBC) count Ordered By: Sanju Carlos on 06-18-2024 WBC (Bld) [#/Vol] 7.2 10*3/uL 4.4-11.0 [facility] White blood cell countOrdere d By: Sanju Carlos on 06-18-2024 Urine WBC 10-25 SEEN /hpf 0-5 [facility] Basic Metabolic Profile (BMP )on 02-28-2024 BUN/CRE 13.1 RATIO Normal 10-20 [facility] Comment on above: Performed By: #### L 500.4100, L500.2500 #### [facility] [address] [place], [address] CA,Total 9.8 mg/dL Normal 8.5-10.1 [facility] Comment on above: Performed By: #### L 500.4100, L500.2500 #### [facility] [address] [place], [address] Chloride [Moles/Vol] 107 mmol/L Normal 98-107 [facility] Comment on above: Performed By: #### L 500.4100, L500.2500 #### [facility] [address] [place], [address] CO2 [Moles/Vol] 26.0 mmol/L Normal 21.0-32.0 [facility] Comment on above: Performed By: #### L 500.4100, L500.2500 #### [facility] [address] [place], [address] Creatinine [Mass/Vol] 1.30 mg/dL Normal 0.70-1.30 [facility] Comment on above: Result Comment: The validity of the calculated GFR GFRAA in patients over 70 years has not been determined. Clinical correlation is essential. Performed By: #### L 500.4100, L500.2500 #### [facility] [address] [place], [address] EST GFR - AA 70 mL/min Normal >60 [facility] Comment on above: Result Comment: Afri can Marshallese GFR Calc Performed By: #### L 500.4100, L500.2500 #### [facility] [address] [place], [address] GAP 6 Normal 5-15 [facility] Comment on above: Performed By: #### L 500.4100, L500.2500 #### [facility] [address] [place], [address] GFR/1.73 sq M.predicted among non-blacks MDRD (S/P/Bld) [Vol rate/Area] 58 mL/min/{1.73_m2} Low >60 [facility] Comment on above: Result Comment: Non- GFR Calc Performed By: #### L 500.4100, L500.2500 #### [facility] [address] [place], [address] Glucose [Mass/Vol] 112 mg/dL High 74-106 [facility] Comment on above: Result Comment: Fast ing Glucose result from 100 to 125 mg/dL suggests IMPAIRED HOMEOSTASIS per A.D.A. criteria. Performed By: #### L 500.4100, L500.2500 #### [facility] [address] [place], [address] Potassium [Moles/Vol] 4.1 mmol/L Normal 3.5-5.1 [facility] Comment on above: Performed By: #### L 500.4100, L500.2500 #### [facility] [address] [place], [address] Sodium [Moles/Vol] 139 mmol/L Normal 136-145 [facility] Comment on above: Performed By: #### L 500.4100, L500.2500 #### [facility] [address] [place], [address] Urea nitrogen [Mass/Vol] 17 mg/dL Normal 7-18 [facility] Comment on above: Performed By: #### L 500.4100, L500.2500 #### [facility] [address] [place], [address] Lipid Profileon 02-28-2024 Cholesterol [Mass/Vol] 199 mg/dL Normal 200 [facility] Comment on above: Result Comment: <200 mg/dL Desirable 200-240 mg/dL Borderline >240 mg/dL High Risk Performed By: #### L 501.1105, L100.0100, L501.1400, L500.3400 #### [facility] [address] [place], [address] Cholesterol in HDL [Mass/Vol] 45 mg/dL Normal [facility] Comment on above: Result Comment: The drugs N-Acetylcysteine and Metamizole may falsely depress this assay. Reference Range HDL <40 mg/dL Low HDL Cholesterol HDL >or= 60 mg/dL High HDL Cholesterol Performed By: #### L 501.1105, L100.0100, L501.1400, L500.3400 #### [facility] [address] [place], [address] Cholesterol in LDL [Mass/Vol] 125 mg/dL Normal 0-130 [facility] Comment on above: Performed By: #### L 501.1105, L100.0100, L501.1400, L500.3400 #### [facility] [address] [place], [address] Cholesterol in VLDL [Mass/Vol] 29 mg/dL Normal 5-40 [facility] Comment on above: Performed By: #### L 501.1105, L100.0100, L501.1400, L500.3400 #### [facility] [address] [place], [address] Triglyceride [Mass/Vol] 143 mg/dL Normal [facility] Comment on above: Result Comment: The drugs N-Acetylcysteine and Metamizole may falsely depress this assay. Serum Triglycerides Reference Interval Normal <150 mg/dL Borderline high 150 - 199 mg/dL High 200 - 499 mg/dL Very High > or = 500 mg/dL Performed By: #### L 501.1105, L100.0100, L501.1400, L500.3400 #### [facility] [address] [place], [address] Echo Completeon 01-05-2024 Echo Complete [facility] [address] [place] [address] Echo Complete 01/05/24 1305 MR#: [id number] Acct: [id number] Name: MERLIN HOLMAN Rep #: [id number] : 1950 73 From: Lc Merlos MD Attending Dr: Dr. Car Henry MD Status: REG I Ordering Dr: Car Henry MD Date: 01/05/24 Location: [facility] Sex: M C Admitted: Reason For Study: SOB Procedure This was a 2D Doppler, Color Flow transthoracic echocardiogram. Unable to assess RV strain due to image quality of RV. Exam performed in department. Left Ventricle Normal LV size. Left ventricular systolic function is normal. The left ventricular ejection fraction is 65 %. Normal diastology for age. No regional wall motion abnormalities noted. Right Ventricle Normal RV size. Normal systolic function. Atria Normal left atrium. Normal right atrium. Mitral Valve Normal mitral valve. Tricuspid Valve Normal tricuspid valve. Unable to estimate RV systolic pressure due to inadequate jet, pulmonary artery pressure probably normal. Aortic Valve Trisinus/trileaflet aortic valve. Pulmonic Valve Normal pulmonic valve. Great Vessels Normal aortic root. The pulmonary artery is normal size. Normal inferior vena cava. Pericardium/Pleural No pericardial effusion. MMode/2D Measurements Calculations LVIDd: 3.9 cm IVSd: 1.1 cm Ao root diam: 3.2 cm LVIDs: 2.7 cm LVPWd: 1.1 cm RVDd: 3.4 cm FS: 31.6 % LAV(MOD-bp): 39.0 ml LVAd ap4: 21.7 cm2 LVAd ap2: 20.3 cm2 LAV(MOD-bp) Indexed: 19.7 ml/m2 LVLd ap4: 8.2 cm LVLd ap2: 7.6 cm LAV(MOD-sp2): 37.3 ml EDV(MOD-sp4): 47.5 ml EDV(MOD-sp2): 46.7 ml LAV(MOD-sp4): 37.4 ml EDV(sp4-el): 48.9 ml EDV(sp2-el): 45.9 ml LVAs ap4: 10.3 cm2 LVAs ap2: 10.5 cm2 LVLs ap4: 6.3 cm LVLs ap2: 5.5 cm ESV(MOD-sp4): 14.2 ml ESV(MOD-sp2): 17.0 ml ESV(sp4-el): 14.1 ml ESV(sp2-el): 16.9 ml EF(MOD-sp4): 70.1 % EF(MOD-sp2): 63.6 % EF(sp4-el): 71.1 % SV(MOD-sp4): 33.3 ml SV(MOD-sp2): 29.7 ml SV(sp4-el): 34.7 ml LA dimension(2D): 3.6 cm LA A4 area: 14.7 cm2 RA A4 area: 11.9 cm2 TAPSE: 2.1 cm Time Measurements MV dec time: 0.17 sec Doppler Measurements Calculations MV E max cher: 53.2 cm/sec Lat Peak E' Cher: 6.3 cm/sec Med Peak E' Cher: 7.5 cm/sec MV A max cher: 68.1 cm/sec E/E' lat: 8.4 E/E' med: 7.1 MV E/A: 0.78 MV V2 max: 93.7 cm/sec MV P1/2t max cher: 58.0 cm/sec Ao V2 max: 108.8 cm/sec MV max P.5 mmHg MV P1/2t: 52.3 msec Ao max P.7 mmHg MV V2 mean: 48.0 cm/sec MV dec slope: 325.2 cm/sec2 Ao V2 mean: 80.0 cm/sec MV mean P.1 mmHg Ao mean P.8 mmHg MV V2 VTI: 15.2 cm MVA(P1/2t): 4.2 cm2 Ao V2 VTI: 21.2 cm AV (velocity ratio): 0.71 LV V1 max: 77.3 cm/sec PA V2 max: 105.9 cm/sec LV V1 max P.4 mmHg PA V2 mean: 83.7 cm/sec LV V1 mean P.5 mmHg LV V1 mean: 57.6 cm/sec LV V1 VTI: 15.1 cm ECHO/Echo Complete Interpretation Summary Normal LV size. Left ventricular systolic function is normal. The left ventricular ejection fraction is 65 %. Unable to estimate RV systolic pressure due to inadequate jet, pulmonary artery pressure probably normal. Ordering Physician: Car Henry V Referring Physician: Kang Ash Performed By: Sophy Muse, RDCS, RVT 01/05/24 1420 Date Lc Merlos MD CC: Dr. Kang Ash MD; Dr. Car Henry MD Date Dictated: 01/05/24 1305 Date Transcribed: 01/05/24 1420 Foreign Student Adviser Teacher: Signed Normal [facility] Basophil percentageOrdered B y: Kang Ash on 09-23-2023 Chloride [Moles/Vol] 104 mmol/L 98-107 [facility] Cholesterol [Mass/Vol] 182 mg/dL <200 [facility] Comment on above: <200 mg/dL Desirable 200-240 mg/dL Borderline >240 mg/dL High Risk Glucose [Mass/Vol] 104 mg/dL 74-106 [facility] Comment on above: Fasting Glucose resu lt from 100 to 125 mg/dL suggests IMPAIRED HOMEOSTASIS per A.D.A. criteria. Potassium [Moles/Vol] 3.5 mmol/L 3.5-5.1 [facility] Sodium [Moles/Vol] 138 mmol/L 136-145 [facility] Triglyceride [Mass/Vol] 75 mg/dL <199 [facility] Comment on above: The drugs N-Acetylcy steine and Metamizole may falsely depress this assay.Serum Triglycerides Reference Interval Normal <150 mg/dL Borderline high 150 - 199 mg/dL High 200 - 499 mg/dL Very High > or = 500 mg/dL Laboratory - Chemistry and C hemistry - challengeOrdered By: Kang Ash on 09-23-2023 Cholesterol in HDL [Mass/Vol] 42 mg/dL >40 [facility] Comment on above: The drugs N-Acetylcy steine and Metamizole may falsely depress this assay. Reference Range HDL <40 mg/dL Low HDL Cholesterol HDL >or= 60 mg/dL High HDL Cholesterol Cholesterol in LDL [Mass/Vol] 125 mg/dL 0-130 [facility] CO2 [Moles/Vol] 28.0 mmol/L 21.0-32.0 [facility] Urea nitrogen/Creatinine [Mass ratio] 9.2 mg/mg 10-20 [facility] No Panel InformationOrdered By: Kang Ash on 09-23-2023 Estimated GFR (MDRD) Amer 77 mL/min >60 [facility] Comment on above: GFR Calc Estimated GFR (MDRD) Non-Af Amer 64 mL/min >60 [facility] Comment on above: Non- GFR Calc VLDL Cholesterol 15 mg/dL 5-40 [facility] Serum or plasma calcium angela urement (mass/volume)Ordered By: Kang Ash on 09-23-2023 Calcium [Mass/Vol] 9.1 mg/dL 8.5-10.1 [facility] Serum or plasma creatinine m easurement (mass/volume)Ordered By: Kang Ash on 09-23-2023 Creatinine [Mass/Vol] 1.19 mg/dL 0.70-1.30 [facility] Comment on above: The validity of the calculated GFR & GFRAA in patients over 70 years has not been determined. Clinical correlation is essential. Serum or plasma urea nitroge n measurement (mass/volume)Ordered By: Kang Ash on 09-23-2023 Urea nitrogen [Mass/Vol] 11 mg/dL 7-18 [facility] Thin prep Papanicolaou smear with manual screeningOrdered By: Kang Ash on 09-23-2023 Thin prep Papanicolaou smear with manual screening 6 5-15 [facility] Absolute lymphocyte countOrd ered By: Sanju Carlos on 05-25-2023 Lymphocytes Auto (Unsp spec) [#/Vol] 1.87 10*3/uL 0.83-4.51 [facility] Basophil percentageOrdered B y: Sanju Carlos on 05-25-2023 Basophil percentage 0-5 SEEN /hpf 0-5 [facility] Basophils/100 WBC (Bld) 0.5 % 0-1 [facility] Bilirubin [Mass/Vol] 0.40 mg/dL 0.20-1.00 [facility] Comment on above: For patients on eltr ombopag therapy, use of Dimension [place] TBIL is not recommended. Eosinophils/100 WBC (Bld) 1.7 % 0-5 [facility] Neutrophils (Bld) [#/Vol] 4.0 10*3/uL 2.0-7.7 [facility] Neutrophils/100 WBC (Bld) 61.6 % 47-70 [facility] Protein [Mass/Vol] 7.7 g/dL 6.4-8.2 [facility] WBC (Bld) [#/Vol] 6.5 10*3/uL 4.4-11.0 [facility] Bilirubin Test strip Ql (U)O rdered By: Sanju Carlos on 05-25-2023 Bilirubin Ql (U) Negative Negative [facility] Blood erythrocytes count (nu mber/volume)Ordered By: Sanju Carlos on 05-25-2023 RBC (Bld) [#/Vol] 5.25 10*6/uL 4.6-6.2 [facility] Blood hemoglobin measurement (mass/volume)Ordered By: Sanju Carlos on 05-25-2023 Hemoglobin (Bld) [Mass/Vol] 15.1 g/dL 13.0-16.5 [facility] Blood lymphocytes/100 leukoc ytesOrdered By: Sanju Carlos on 05-25-2023 Lymphocytes/100 WBC (Bld) 28.9 % 19-41 [facility] Blood monocytes/100 leukocyt esOrdered By: Sanju Carlos on 05-25-2023 Monocytes/100 WBC (Bld) 7.0 % 0-10 [facility] Blood platelet mean volumeOr dered By: Sanju Carlos on 05-25-2023 Platelet mean volume (Bld) [Entitic vol] 10.8 fL 6.2-12.0 [facility] Determination of erythrocyte mean corpuscular volume (MCV)Ordered By: Sanju Carlos on 05-25-2023 MCV (RBC) [Entitic vol] 87.0 fL 80-94 [facility] Direct bilirubinOrdered By: Sanju Carlos on 05-25-2023 Bilirubin.direct [Mass/Vol] 0.09 mg/dL 0.00-0.30 [facility] Hematocrit Auto (Bld) [Volum e fraction]Ordered By: aSnju Carlos on 05-25-2023 Hematocrit (Bld) [Volume fraction] 45.7 % 40-54 [facility] Ketones Test strip Ql (U)Ord ered By: Sanju Carlos on 05-25-2023 Ketones Ql (U) Negative Negative [facility] Laboratory - Chemistry and C hemistry - challengeOrdered By: Sanju Carlos on 05-25-2023 ALP [Catalytic activity/Vol] 99 U/L 45-117 [facility] ALT [Catalytic activity/Vol] 37 U/L 16-61 [facility] Globulin (S) [Mass/Vol] 4.1 g/dL 2.2-4.2 [facility] Laboratory - Hematology and Cell countsOrdered By: Sanju Carlos on 05-25-2023 Erythrocyte distribution width (RBC) [Entitic vol] 41.9 fL 35.1-43.9 [facility] Erythrocyte distribution width (RBC) [Ratio] 13.4 % 11.6-14.6 [facility] Immature granulocytes/100 WBC (Bld) 0.300 % 0.0-0.9 [facility] Comment on above: IG% - Immature Granu locytes (promyelocytes, myelocytes and metamyelocytes) > 1% indicates that a LEFT SHIFT is Present. MCH (RBC) [Entitic mass] 28.8 pg 27.0-32.0 [facility] Nucleated RBC/100 WBC (Bld) [Ratio] 0 % 0-5 [facility] MCHC Auto (RBC) [Mass/Vol]Or dered By: Sanju Carlos on 05-25-2023 MCHC (RBC) [Mass/Vol] 33.0 g/dL 32-36 [facility] Mitotic spindle apparatus Ab [Titer] in Serum or PlasmaOrdered By: Sanju Carlos on 05-25-2023 Mitotic spindle apparatus Ab [Titer] [facility] Comment on above: Test not performed Mucus LM Ql (Urine sed)Order ed By: Sanju Carlos on 05-25-2023 Mucus Ql (Urine sed) 0 SEEN /hpf [facility] Nitrite Test strip Ql (U)Ord ered By: Sanju Carlos on 05-25-2023 Nitrite Ql (U) Negative Negative [facility] No Panel InformationOrdered By: Sanju Carlos on 05-25-2023 ALISSA Nuclear Membrane Pattern [facility] Comment on above: Test not performed Anti-Nuclear Antibody Comment 2 Comment . [facility] Comment on above: Pattern Potential Di sease Association Homogeneous Systemic Lupus Erythematosus, Drug Induced Systemic Lupus Erythematosus, Chronic Autoimmune hepatitis, Juvenile Idiopathic Arthritis Speckled Sjogren Syndrome, Systemic Lupus Erythematosus, Subacute Cutaneous Lupus, Lupus, Congenital Heart Block, Mixed Connective Tissue Disease, Scleroderma-diffuse, Scleroderma-Autoimmune Myositis Overlap Syndrome, Systemic Lupus Lguwtycajwoei-Sboijohkvsu-Smkbztcgcm Myositis Overlap Syndrome, Systemic Autoimmune Rheumatic Disease, Undifferentiated Connective Tissue Disease Nucleolar Systemic Sclerosis, Scleroderma-Autoimmune Myositis Overlap Syndrome, Sjogren Syndrome, Raynaud phenomenon, Pulmonary Arterial Hypertension, Systemic Autoimmune Rheumatic Disease, Cancer Centromere Scleroderma-CREST, Limited Cutaneous SSc, Raynaud's Phenomenon, Primary Biliary Cholangitis Nuclear Dot Primary Biliary Cholangitis Nuclear Primary Biliary Cholangitis, AutoimmuneMembrane Hepatitis/Liver disease, Systemic Autoimmune Rheumatic Disease, Autoimmune Cytopenias, Linear Scleroderma, Antiphospholipid Syndrome Performed at: [employer] [place] [id number] Director: Kendall Olivera PhD, Phone: [phone] Estimated GFR (MDRD) Amer 72 mL/min >60 [facility] Comment on above: GFR Calc Estimated GFR (MDRD) Non-Af Amer 59 mL/min >60 [facility] Comment on above: Non- GFR Calc Platelets bldOrdered By: Richard Carlos on 05-25-2023 Platelets (Bld) [#/Vol] 271 10*3/uL 150-450 [facility] Protein Test strip Ql (U)Ord ered By: Sanju Carlos on 05-25-2023 Protein Ql (U) Negative Negative [facility] Serum DNA double strand anti body assay (units/volume)Ordered By: Sanju Carlos on 05-25-2023 DNA double strand Ab Qn (S) [IU]/mL 0-9 [facility] Comment on above: Negative <5 Equivoca l 5 - 9 Positive >9 Serum midbody antibody titer by immunofluorescenceOrdered By: Sanju Carlos on 05-25-2023 Midbody Ab IF (S) [Titer] [facility] Comment on above: Test not performed Serum multiple nuclear dot p attern antinuclear IgG antibody (ALISSA) titer by immunofluoOrdered By: Sanju Carlos on 05-25-2023 Multiple nuclear dots nuclear IgG pattern IF (S) [Titer] [facility] Comment on above: Test not performed Serum neuronal nuclear antib odug detection by immunofluorescenceOrdered By: Sanju Carlos on 05-25-2023 Neuronal nuclear Ab IF Ql (S) [facility] Comment on above: Test not performed Serum nuclear antibody patte rn homogenous titer by immunofluorescenceOrdered By: Sanju Carlos on 05-25-2023 Homogenous nuclear Ab pattern IF (S) [Titer] [facility] Comment on above: Test not performed Serum nuclear antibody patte rn interpretation by immunofluorescenceOrdered By: Sanju Carlos on 05-25-2023 Nuclear Ab pattern IF (S) [Interp] [facility] Comment on above: Test not performed Serum nuclear antibody titer by immunofluorescenceOrdered By: Sanju Carlos on 05-25-2023 Nuclear Ab IF (S) [Titer] Positive . [facility] Comment on above: Negative <1:80 Borde rline 1:80 Positive >1:80 Serum or plasma actin IgG an tibody assay (units/volume)Ordered By: Sanju Carlos on 05-25-2023 Actin IgG Qn 6 Units 0-19 [facility] Comment on above: Negative 0 - 19 Weak positive 20 - 30 Moderate to strong positive >30 Actin Antibodies are found in 52-85% of patients with autoimmune hepatitis or chronic active hepatitis and in 22% of patients with primary biliary cirrhosis.Performed at: [facility] [employer] [id number] Director: Kendall Olivera PhD, Phone: [phone] Serum or plasma albumin angela urement (mass/volume)Ordered By: Sanju Carlos on 05-25-2023 Albumin [Mass/Vol] 3.6 g/dL 3.2-5.0 [facility] Serum or plasma complement C 3 measurement (mass/volume)Ordered By: Sanju Carlos on 05-25-2023 Complement C3 [Mass/Vol] 124 mg/dL 82-167 [facility] Serum or plasma complement C 4 measurement (mass/volume)Ordered By: Sanju Carlos on 05-25-2023 Complement C4 [Mass/Vol] 22 mg/dL 12 [facility] Serum or plasma creatinine m easurement (mass/volume)Ordered By: Sanju Carlos on 05-25-2023 Creatinine [Mass/Vol] 1.27 mg/dL 0.70-1.30 [facility] Comment on above: The validity of the calculated GFR & GFRAA in patients over 70 years has not been determined. Clinical correlation is essential. Serum or plasma uric acid me asurement (mass/volume)Ordered By: Sanju Carlos on 05-25-2023 Urate [Mass/Vol] 4.6 mg/dL 3.5-7.2 [facility] Comment on above: The drugs N-Acetylcy steine and Metamizole may falsely depress this assay. Serum proliferating cell nuc lear antigen (PCNA) antibody titer by immunofluorescenceOrdered By: Sanju Carlos on 05-25-2023 PCNA extractable nuclear Ab IF (S) [Titer] [facility] Comment on above: Test not performed Serum speckled nuclear antib doug pattern titerOrdered By: Sanju Carlos on 05-25-2023 Speckled nuclear Ab pattern (S) [Titer] 1:80 . [facility] A C-2,4,5,29 Squamous epithelial cells de tection in urine sediment by light microscopyOrdered By: Sanju Carlos on 05-25-2023 Epithelial cells.squamous LM Ql (Urine sed) 0 SEEN /hpf 0-5 [facility] Thin prep Papanicolaou smear with manual screeningOrdered By: Sanju Carlos on 05-25-2023 Thin prep Papanicolaou smear with manual screening 27 U/L 15-37 [facility] Thin prep Papanicolaou smear with manual screening [facility] Comment on above: Test not performed Urine blood detectionOrdered By: Sanju Carlos on 05-25-2023 RBC Ql (U) 50 /ul Negative [facility] RBC Ql (U) 0-5 SEEN /hpf 0-5 [facility] Urine clarityOrdered By: Richard Carlos on 05-25-2023 Clarity (U) Sl. Cloudy Clear [facility] Urine color determinationOrd ered By: Sanju Carlos on 05-25-2023 Color (U) Yellow Yellow [facility] Urine glucose detectionOrder ed By: Sanju Carlos on 05-25-2023 Glucose Ql (U) Normal mg/dl Normal [facility] Urine leukocyte esterase det ection by dipstickOrdered By: Sanju Carlos on 05-25-2023 Leukocyte esterase Test strip Ql (U) 25 /ul Negative [facility] Urine pHOrdered By: Sanju Senior u on 05-25-2023 pH (U) 6.5 [pH] 5.0 - 8.0 [facility] Urine sediment bacteria coun t by microscopy (number/high power field)Ordered By: Sanju Carlos on 05-25-2023 Bacteria LM.HPF (Urine sed) [#/Area] RARE /hpf None Seen [facility] Urine specific gravity measu rementOrdered By: Sanju Carlos on 05-25-2023 Specific gravity (U) [Rel density] 1.015 1.002-1.03 0 [facility] Urobilinogen Auto test strip Ql (U)Ordered By: Sanju Carlos on 05-25-2023 Urobilinogen Ql (U) 1 mg/dl Normal [facility] Basophil percentageOrdered B y: Kang Ash on 02-07-2023 Chloride [Moles/Vol] 105 mmol/L 98-107 [facility] Cholesterol [Mass/Vol] 209 mg/dL <200 [facility] Comment on above: <200 mg/dL Desirable 200-240 mg/dL Borderline >240 mg/dL High Risk Glucose [Mass/Vol] 100 mg/dL 74-106 [facility] Comment on above: Fasting Glucose resu lt from 100 to 125 mg/dL suggests IMPAIRED HOMEOSTASIS per A.D.A. criteria. Potassium [Moles/Vol] 3.5 mmol/L 3.5-5.1 [facility] Sodium [Moles/Vol] 138 mmol/L 136-145 [facility] Triglyceride [Mass/Vol] 201 mg/dL <199 [facility] Comment on above: The drugs N-Acetylcy steine and Metamizole may falsely depress this assay.Serum Triglycerides Reference Interval Normal <150 mg/dL Borderline high 150 - 199 mg/dL High 200 - 499 mg/dL Very High > or = 500 mg/dL Laboratory - Chemistry and C hemistry - challengeOrdered By: Kang Ash on 02-07-2023 CO2 [Moles/Vol] 24.0 mmol/L 21.0-32.0 [facility] Urea nitrogen/Creatinine [Mass ratio] 18.8 mg/mg 10-20 [facility] No Panel InformationOrdered By: Kang Ash on 02-07-2023 Estimated GFR (MDRD) Amer 79 mL/min >60 [facility] Comment on above: GFR Calc Estimated GFR (MDRD) Non-Af Amer 65 mL/min >60 [facility] Comment on above: Non- GFR Calc Serum or plasma calcium angela urement (mass/volume)Ordered By: Kang Ash on 02-07-2023 Calcium [Mass/Vol] 9.2 mg/dL 8.5-10.1 [facility] Serum or plasma cholesterol in HDL measurement (mass/volume)Ordered By: Kang Ash on 02-07-2023 Cholesterol in HDL [Mass/Vol] 44 mg/dL >40 [facility] Comment on above: The drugs N-Acetylcy steine and Metamizole may falsely depress this assay. Reference Range HDL <40 mg/dL Low HDL Cholesterol HDL >or= 60 mg/dL High HDL Cholesterol Serum or plasma cholesterol in VLDL measurement (mass/volume)Ordered By: Kang Ash on 02-07-2023 Cholesterol in VLDL [Mass/Vol] 40 mg/dL 5-40 [facility] Serum or plasma creatinine m easurement (mass/volume)Ordered By: Kang Ash on 02-07-2023 Creatinine [Mass/Vol] 1.17 mg/dL 0.70-1.30 [facility] Comment on above: The validity of the calculated GFR & GFRAA in patients over 70 years has not been determined. Clinical correlation is essential. Serum or plasma low density lipoprotein (LDL) cholesterol measurement (mass/volume)Ordered By: Kang Ash on 02-07-2023 Cholesterol in LDL [Mass/Vol] 125 mg/dL 0-130 [facility] Serum or plasma urea nitroge n measurement (mass/volume)Ordered By: Kang Ash on 02-07-2023 Urea nitrogen [Mass/Vol] 22 mg/dL 7-18 [facility] Thin prep Papanicolaou smear with manual screeningOrdered By: Kang Ash on 02-07-2023 Thin prep Papanicolaou smear with manual screening 9 5-15 [facility] Absolute lymphocyte countOrd ered By: Sanju Carlos on 12-17-2022 Lymphocytes Auto (Unsp spec) [#/Vol] 1.77 10*3/uL 0.83-4.51 [facility] Basophil percentageOrdered B y: Sanju Cralos on 12-17-2022 Basophil percentage 0-5 SEEN /hpf 0-5 [facility] Basophils/100 WBC (Bld) 0.4 % 0-1 [facility] Bilirubin [Mass/Vol] 0.40 mg/dL 0.20-1.00 [facility] Comment on above: For patients on eltr ombopag therapy, use of Dimension [place] TBIL is not recommended. Eosinophils/100 WBC (Bld) 0.9 % 0-5 [facility] Neutrophils (Bld) [#/Vol] 4.4 10*3/uL 2.0-7.7 [facility] Neutrophils/100 WBC (Bld) 64.0 % 47-70 [facility] Protein [Mass/Vol] 7.6 g/dL 6.4-8.2 [facility] WBC (Bld) [#/Vol] 6.9 10*3/uL 4.4-11.0 [facility] Bilirubin Test strip Ql (U)O rdered By: Sanju Carlos on 12-17-2022 Bilirubin Ql (U) Negative Negative [facility] Blood erythrocytes count (nu mber/volume)Ordered By: Sanju Carlos on 12-17-2022 RBC (Bld) [#/Vol] 5.23 10*6/uL 4.6-6.2 [facility] Blood hemoglobin measurement (mass/volume)Ordered By: Sanju Carlos on 12-17-2022 Hemoglobin (Bld) [Mass/Vol] 15.4 g/dL 13.0-16.5 [facility] Blood lymphocytes/100 leukoc ytesOrdered By: Sanju Carlos on 12-17-2022 Lymphocytes/100 WBC (Bld) 25.7 % 19-41 [facility] Blood monocytes/100 leukocyt esOrdered By: Sanju Carlos on 12-17-2022 Monocytes/100 WBC (Bld) 8.6 % 0-10 [facility] Blood platelet mean volumeOr dered By: Sanju Carlos on 12-17-2022 Platelet mean volume (Bld) [Entitic vol] 10.9 fL 6.2-12.0 [facility] Culture, urineOrdered By: Harriet Carlos on 12-17-2022 Bacteria identified Cx Nom (U) Positive [facility] Determination of erythrocyte mean corpuscular volume (MCV)Ordered By: Sanju Carlos on 12-17-2022 MCV (RBC) [Entitic vol] 88.9 fL 80-94 [facility] Direct bilirubinOrdered By: Sanju Carlos on 12-17-2022 Bilirubin.direct [Mass/Vol] 0.11 mg/dL 0.00-0.30 [facility] Hematocrit Auto (Bld) [Volum e fraction]Ordered By: Sanju Carlos on 12-17-2022 Hematocrit (Bld) [Volume fraction] 46.5 % 40-54 [facility] Ketones Test strip Ql (U)Ord ered By: Sanju Carlos on 12-17-2022 Ketones Ql (U) Negative Negative [facility] Laboratory - Chemistry and C hemistry - challengeOrdered By: Sanju Carlos on 12-17-2022 ALP [Catalytic activity/Vol] 101 U/L 45-117 [facility] ALT [Catalytic activity/Vol] 30 U/L 16-61 [facility] Globulin (S) [Mass/Vol] 3.9 g/dL 2.2-4.2 [facility] - Hematology and Cell countsOrdered By: Sanju Carlos on 12-17-2022 Erythrocyte distribution width (RBC) [Entitic vol] 43.5 fL 35.1-43.9 [facility] Erythrocyte distribution width (RBC) [Ratio] 13.3 % 11.6-14.6 [facility] Immature granulocytes/100 WBC (Bld) 0.400 % 0.0-0.9 [facility] Comment on above: IG% - Immature Granu locytes (promyelocytes, myelocytes and metamyelocytes) > 1% indicates that a LEFT SHIFT is Present. MCH (RBC) [Entitic mass] 29.4 pg 27.0-32.0 [facility] Nucleated RBC/100 WBC (Bld) [Ratio] 0 % 0-5 [facility] MCHC Auto (RBC) [Mass/Vol]Or dered By: Sanju Carlos on 12-17-2022 MCHC (RBC) [Mass/Vol] 33.1 g/dL 32-36 [facility] Mucus LM Ql (Urine sed)Order ed By: Sanju Carlos on 12-17-2022 Mucus Ql (Urine sed) 0 SEEN /hpf [facility] Nitrite Test strip Ql (U)Ord ered By: Sanju Carlos on 12-17-2022 Nitrite Ql (U) Negative Negative [facility] No Panel InformationOrdered By: Sanju Carlos on 12-17-2022 Estimated GFR (MDRD) Amer 75 mL/min >60 [facility] Comment on above: GFR Calc Estimated GFR (MDRD) Non-Af Amer 62 mL/min >60 [facility] Comment on above: Non- GFR Calc Platelets bldOrdered By: Richard Carlos on 12-17-2022 Platelets (Bld) [#/Vol] 282 10*3/uL 150-450 [facility] Protein Test strip Ql (U)Ord ered By: Sanju Carlos on 12-17-2022 Protein Ql (U) Negative Negative [facility] Serum or plasma albumin angela urement (mass/volume)Ordered By: Sanju Carlos on 12-17-2022 Albumin [Mass/Vol] 3.7 g/dL 3.2-5.0 [facility] Serum or plasma creatinine m easurement (mass/volume)Ordered By: Sanju Carlos on 12-17-2022 Creatinine [Mass/Vol] 1.23 mg/dL 0.70-1.30 [facility] Comment on above: The validity of the calculated GFR & GFRAA in patients over 70 years has not been determined. Clinical correlation is essential. Serum or plasma urea nitroge n measurement (mass/volume)Ordered By: Sanju Carlos on 12-17-2022 Urea nitrogen [Mass/Vol] 22 mg/dL 7-18 [facility] Serum or plasma uric acid me asurement (mass/volume)Ordered By: Sanju Carlos on 12-17-2022 Urate [Mass/Vol] 4.5 mg/dL 3.5-7.2 [facility] Comment on above: The drugs N-Acetylcy steine and Metamizole may falsely depress this assay. Squamous epithelial cells de tection in urine sediment by light microscopyOrdered By: Sanju Carlos on 12-17-2022 Epithelial cells.squamous LM Ql (Urine sed) 0 SEEN /hpf 0-5 [facility] Thin prep Papanicolaou smear with manual screeningOrdered By: Sanju Carlos on 12-17-2022 Thin prep Papanicolaou smear with manual screening 20 U/L 15-37 [facility] Urine blood detectionOrdered By: Sanju Carlos on 12-17-2022 RBC Ql (U) 25 /ul Negative [facility] RBC Ql (U) 0 SEEN /hpf 0-5 [facility] Urine clarityOrdered By: Richard Carlos on 12-17-2022 Clarity (U) Clear Clear [facility] Urine color determinationOrd ered By: Sanju Carlos on 12-17-2022 Color (U) Yellow Yellow [facility] Urine glucose detectionOrder ed By: Sanju Carlos on 12-17-2022 Glucose Ql (U) Normal mg/dl Normal [facility] Urine leukocyte esterase det ection by dipstickOrdered By: Sanju Carlos on 12-17-2022 Leukocyte esterase Test strip Ql (U) 25 /ul Negative [facility] Urine pHOrdered By: Sanju brice on 12-17-2022 pH (U) 6.0 [pH] 5.0 - 8.0 [facility] Urine sediment bacteria coun t by microscopy (number/high power field)Ordered By: Sanju Carlos on 12-17-2022 Bacteria LM.HPF (Urine sed) [#/Area] 0 /[HPF] None Seen [facility] Urine specific gravity measu rementOrdered By: Sanju Carlos on 12-17-2022 Specific gravity (U) [Rel density] 1.015 1.002-1.03 0 [facility] Urobilinogen Auto test strip Ql (U)Ordered By: Sanju Carlos on 12-17-2022 Urobilinogen Ql (U) Normal mg/dl Normal [facility] No Panel InformationOrdered By: Dr. Hills on 10-19-2022 Prostate Specific Antigen Total 3.75 ng/mL 0.0-4.0 [facility] Comment on above: This test was perfor med using the TPSA assay method for the[employer] chemistry system. Values obtained with differentassay methods cannot be used interchangably.When changing PSA assays in the course of monitoring apatient, additional sequential testing should be carriedout to confirm baseline values. Basophil percentageOrdered B y: Dr. Ash on 09-30-2022 Chloride [Moles/Vol] 106 mmol/L 98-107 [facility] Cholesterol [Mass/Vol] 206 mg/dL <200 [facility] Comment on above: <200 mg/dL Desirable 200-240 mg/dL Borderline >240 mg/dL High Risk Glucose [Mass/Vol] 122 mg/dL 74-106 [facility] Comment on above: Fasting Glucose resu lt from 100 to 125 mg/dL suggests IMPAIRED HOMEOSTASIS per A.D.A. criteria. Potassium [Moles/Vol] 3.6 mmol/L 3.5-5.1 [facility] Sodium [Moles/Vol] 138 mmol/L 136-145 [facility] Triglyceride [Mass/Vol] 235 mg/dL <199 [facility] Comment on above: The drugs N-Acetylcy steine and Metamizole may falsely depress this assay.Serum Triglycerides Reference Interval Normal <150 mg/dL Borderline high 150 - 199 mg/dL High 200 - 499 mg/dL Very High > or = 500 mg/dL Laboratory - Chemistry and C hemistry - challengeOrdered By: Dr. Ash on 09-30-2022 CO2 [Moles/Vol] 27.0 mmol/L 21.0-32.0 [facility] Urea nitrogen/Creatinine [Mass ratio] 19.8 mg/mg 10-20 [facility] No Panel InformationOrdered By: Dr. Ash on 09-30-2022 Estimated GFR (MDRD) Amer 84 mL/min >60 [facility] Comment on above: GFR Calc Estimated GFR (MDRD) Non-Af Amer 70 mL/min >60 [facility] Comment on above: Non- GFR Calc Serum or plasma calcium angela urement (mass/volume)Ordered By: Dr. Ash on 09-30-2022 Calcium [Mass/Vol] 9.7 mg/dL 8.5-10.1 [facility] Serum or plasma cholesterol in HDL measurement (mass/volume)Ordered By: Dr. Ash on 09-30-2022 Cholesterol in HDL [Mass/Vol] 45 mg/dL >40 [facility] Comment on above: The drugs N-Acetylcy steine and Metamizole may falsely depress this assay. Reference Range HDL <40 mg/dL Low HDL Cholesterol HDL >or= 60 mg/dL High HDL Cholesterol Serum or plasma cholesterol in VLDL measurement (mass/volume)Ordered By: Dr. Ash on 09-30-2022 Cholesterol in VLDL [Mass/Vol] 47 mg/dL 5-40 [facility] Serum or plasma creatinine m easurement (mass/volume)Ordered By: Dr. Ash on 09-30-2022 Creatinine [Mass/Vol] 1.11 mg/dL 0.70-1.30 [facility] Comment on above: The validity of the calculated GFR & GFRAA in patients over 70 years has not been determined. Clinical correlation is essential. Serum or plasma low density lipoprotein (LDL) cholesterol measurement (mass/volume)Ordered By: Dr. Ash on 09-30-2022 Cholesterol in LDL [Mass/Vol] 114 mg/dL 0-130 [facility] Serum or plasma urea nitroge n measurement (mass/volume)Ordered By: Dr. Ash on 09-30-2022 Urea nitrogen [Mass/Vol] 22 mg/dL 7-18 [facility] Thin prep Papanicolaou smear with manual screeningOrdered By: Dr. Ash on 09-30-2022 Thin prep Papanicolaou smear with manual screening 5 5-15 [facility] Culture, urineOrdered By: Dr Nate Carlos on 08-22-2022 Bacteria identified Cx Nom (U) Culture exhibits no growth. [facility] Absolute lymphocyte countOrd ered By: Dr. Carlos on 08-20-2022 Lymphocytes Auto (Unsp spec) [#/Vol] 1.72 10*3/uL 0.83-4.51 [facility] Basophil percentageOrdered B y: Dr. Carlos on 08-20-2022 Basophil percentage 0 SEEN /hpf 0-5 [facility] Basophils/100 WBC (Bld) 0.6 % 0-1 [facility] Bilirubin [Mass/Vol] 0.60 mg/dL 0.20-1.00 [facility] Comment on above: For patients on eltr ombopag therapy, use of Dimension [place] TBIL is not recommended. Eosinophils/100 WBC (Bld) 1.1 % 0-5 [facility] Neutrophils (Bld) [#/Vol] 4.4 10*3/uL 2.0-7.7 [facility] Neutrophils/100 WBC (Bld) 65.7 % 47-70 [facility] Protein [Mass/Vol] 8.0 g/dL 6.4-8.2 [facility] WBC (Bld) [#/Vol] 6.6 10*3/uL 4.4-11.0 [facility] Bilirubin Test strip Ql (U)O rdered By: Dr. Carlos on 08-20-2022 Bilirubin Ql (U) Negative Negative [facility] Blood erythrocytes count (nu mber/volume)Ordered By: Dr. Carlos on 08-20-2022 RBC (Bld) [#/Vol] 5.44 10*6/uL 4.6-6.2 [facility] Blood hemoglobin measurement (mass/volume)Ordered By: Dr. Carlos on 08-20-2022 Hemoglobin (Bld) [Mass/Vol] 15.8 g/dL 13.0-16.5 [facility] Blood lymphocytes/100 leukoc ytesOrdered By: Dr. Carlos on 08-20-2022 Lymphocytes/100 WBC (Bld) 25.9 % 19-41 [facility] Blood monocytes/100 leukocyt esOrdered By: Dr. Carlos on 08-20-2022 Monocytes/100 WBC (Bld) 6.5 % 0-10 [facility] Blood platelet mean volumeOr dered By: Dr. Carlos on 08-20-2022 Platelet mean volume (Bld) [Entitic vol] 10.4 fL 6.2-12.0 [facility] Determination of erythrocyte mean corpuscular volume (MCV)Ordered By: Dr. Carlos on 08-20-2022 MCV (RBC) [Entitic vol] 86.4 fL 80-94 [facility] Direct bilirubinOrdered By: Dr. Carlos on 08-20-2022 Bilirubin.direct [Mass/Vol] 0.14 mg/dL 0.00-0.30 [facility] Hematocrit Auto (Bld) [Volum e fraction]Ordered By: Dr. Carlos on 08-20-2022 Hematocrit (Bld) [Volume fraction] 47.0 % 40-54 [facility] Ketones Test strip Ql (U)Ord ered By: Dr. Carlos on 08-20-2022 Ketones Ql (U) Negative Negative [facility] Laboratory - Chemistry and C hemistry - challengeOrdered By: Dr. Carlos on 08-20-2022 ALP [Catalytic activity/Vol] 93 U/L 45-117 [facility] ALT [Catalytic activity/Vol] 35 U/L 16-61 [facility] Globulin (S) [Mass/Vol] 4.0 g/dL 2.2-4.2 [facility] Laboratory - Hematology and Cell countsOrdered By: Dr. Carlos on 08-20-2022 Erythrocyte distribution width (RBC) [Entitic vol] 41.7 fL 35.1-43.9 [facility] Erythrocyte distribution width (RBC) [Ratio] 13.4 % 11.6-14.6 [facility] Immature granulocytes/100 WBC (Bld) 0.200 % 0.0-0.9 [facility] Comment on above: IG% - Immature Granu locytes (promyelocytes, myelocytes and metamyelocytes) > 1% indicates that a LEFT SHIFT is Present. MCH (RBC) [Entitic mass] 29.0 pg 27.0-32.0 [facility] Nucleated RBC/100 WBC (Bld) [Ratio] 0 % 0-5 [facility] MCHC Auto (RBC) [Mass/Vol]Or dered By: Dr. Carlos on 08-20-2022 MCHC (RBC) [Mass/Vol] 33.6 g/dL 32-36 [facility] Mucus LM Ql (Urine sed)Order ed By: Dr. Carlos on 08-20-2022 Mucus Ql (Urine sed) 0 SEEN /hpf [facility] Nitrite Test strip Ql (U)Ord ered By: Dr. Carlos on 08-20-2022 Nitrite Ql (U) Negative Negative [facility] No Panel InformationOrdered By: Dr. Carlos on 08-20-2022 Estimated GFR (MDRD) Amer 78 mL/min >60 [facility] Comment on above: GFR Calc Estimated GFR (MDRD) Non-Af Amer 65 mL/min >60 [facility] Comment on above: Non- GFR Calc Platelets bldOrdered By: Dr. Carlos on 08-20-2022 Platelets (Bld) [#/Vol] 275 10*3/uL 150-450 [facility] Protein Test strip Ql (U)Ord ered By: Dr. Carlos on 08-20-2022 Protein Ql (U) 15 mg/dl Negative [facility] Serum DNA double strand anti body assay (units/volume)Ordered By: Dr. Carlos on 08-20-2022 DNA double strand Ab Qn (S) [IU]/mL 0-9 [facility] Comment on above: Negative <5 Equivoca l 5 - 9 Positive >9 Serum nuclear antibody titer by immunofluorescenceOrdered By: Dr. Carlos on 08-20-2022 Nuclear Ab IF (S) [Titer] Negative . [facility] Comment on above: Negative <1:80 Borde rline 1:80 Positive >1:80ICAP nomenclature: [id number] more information about Hep-2 cell patterns useANApatterns.org, the official website for theInternational Consensus on Antinuclear Antibody (ALISSA)Patterns (ICAP).Performed at: [email or web address] [place] [id number] Director: Kendall Olivera PhD, Phone: [phone] Serum or plasma albumin angela urement (mass/volume)Ordered By: Dr. Carlos on 08-20-2022 Albumin [Mass/Vol] 4.0 g/dL 3.2-5.0 [facility] Serum or plasma complement C 3 measurement (mass/volume)Ordered By: Dr. Carlos on 08-20-2022 Complement C3 [Mass/Vol] 129 mg/dL 82-167 [facility] Comment on above: Performed at: [email or web address] [address] [id number] Director: Kendall Olivera PhD, Phone: [phone] Serum or plasma complement C 4 measurement (mass/volume)Ordered By: Dr. Carlos on 08-20-2022 Complement C4 [Mass/Vol] 22 mg/dL 12-38 [facility] Serum or plasma creatinine m easurement (mass/volume)Ordered By: Dr. Carlos on 08-20-2022 Creatinine [Mass/Vol] 1.18 mg/dL 0.70-1.30 [facility] Comment on above: The validity of the calculated GFR & GFRAA in patients over 70 years has not been determined. Clinical correlation is essential. Serum or plasma urea nitroge n measurement (mass/volume)Ordered By: Dr. Carlos on 08-20-2022 Urea nitrogen [Mass/Vol] 23 mg/dL 7-18 [facility] Serum or plasma uric acid me asurement (mass/volume)Ordered By: Dr. Carlos on 08-20-2022 Urate [Mass/Vol] 3.9 mg/dL 3.5-7.2 [facility] Comment on above: The drugs N-Acetylcy steine and Metamizole may falsely depress this assay. Squamous epithelial cells de tection in urine sediment by light microscopyOrdered By: Dr. Carlos on 08-20-2022 Epithelial cells.squamous LM Ql (Urine sed) 0 SEEN /hpf 0-5 [facility] Thin prep Papanicolaou smear with manual screeningOrdered By: Dr. Carlos on 08-20-2022 Thin prep Papanicolaou smear with manual screening 27 U/L 15-37 [facility] Urine blood detectionOrdered By: Dr. Carlos on 08-20-2022 RBC Ql (U) 50 /ul Negative [facility] RBC Ql (U) 0-5 SEEN /hpf 0-5 [facility] Urine clarityOrdered By: Dr. Carlos on 08-20-2022 Clarity (U) Clear Clear [facility] Urine color determinationOrd ered By: Dr. Carlos on 08-20-2022 Color (U) Yellow Yellow [facility] Urine glucose detectionOrder ed By: Dr. Carlos on 08-20-2022 Glucose Ql (U) Normal mg/dl Normal [facility] Urine leukocyte esterase det ection by dipstickOrdered By: Dr. Carlos on 08-20-2022 Leukocyte esterase Test strip Ql (U) 25 /ul Negative [facility] Urine pHOrdered By: Dr. Carlos o n 08-20-2022 pH (U) 6.0 [pH] 5.0 - 8.0 [facility] Urine sediment bacteria coun t by microscopy (number/high power field)Ordered By: Dr. Carlos on 08-20-2022 Bacteria LM.HPF (Urine sed) [#/Area] 0 /[HPF] None Seen [facility] Urine specific gravity measu rementOrdered By: Dr. Carlos on 08-20-2022 Specific gravity (U) [Rel density] 1.020 1.002-1.03 0 [facility] Urobilinogen Auto test strip Ql (U)Ordered By: Dr. Carlos on 08-20-2022 Urobilinogen Ql (U) Normal mg/dl Normal [facility] Absolute lymphocyte counton 04-14-2022 Lymphocytes Auto (Unsp spec) [#/Vol] 1.85 10*3/uL 0.83-4.51 [facility] Work Phone: Basophil percentageon 2021 Basophil percentage 0-5 SEEN /hpf 0-5 [facility] Work Phone: Basophils/100 WBC (Bld) 0.4 % 0-1 [facility] Work Phone: Bilirubin [Mass/Vol] 0.60 mg/dL 0.20-1.00 [facility] Work Phone: Comment on above: For patients on eltr ombopag therapy, use of Dimension [place] TBIL is not recommended. Eosinophils/100 WBC (Bld) 1.5 % 0-5 [facility] Work Phone: Neutrophils (Bld) [#/Vol] 5.5 10*3/uL 2.0-7.7 [facility] Work Phone: Neutrophils/100 WBC (Bld) 67.9 % 47-70 [facility] Work Phone: Protein [Mass/Vol] 7.8 g/dL 6.4-8.2 [facility] Work Phone: WBC (Bld) [#/Vol] 8.1 10*3/uL 4.4-11.0 [facility] Work Phone: Bilirubin Test strip Ql (U)o n 04-14-2022 Bilirubin Ql (U) Negative Negative [facility] Work Phone: Blood erythrocytes count (nu mber/volume)on 04-14-2022 RBC (Bld) [#/Vol] 5.18 10*6/uL 4.6-6.2 [facility] Work Phone: Blood hemoglobin measurement (mass/volume)on 04-14-2022 Hemoglobin (Bld) [Mass/Vol] 15.3 g/dL 13.0-16.5 [facility] Work Phone: Blood lymphocytes/100 leukoc yteson 04-14-2022 Lymphocytes/100 WBC (Bld) 22.7 % 19-41 [facility] Work Phone: Blood monocytes/100 leukocyt eson 04-14-2022 Monocytes/100 WBC (Bld) 7.1 % 0-10 [facility] Work Phone: Blood platelet mean volumeon 04-14-2022 Platelet mean volume (Bld) [Entitic vol] 10.7 fL 6.2-12.0 [facility] Work Phone: Determination of erythrocyte mean corpuscular volume (MCV)on 04-14-2022 MCV (RBC) [Entitic vol] 87.6 fL 80-94 [facility] Work Phone: Direct bilirubinon Bilirubin.direct [Mass/Vol] 0.13 mg/dL 0.00-0.30 [facility] Work Phone: Erythrocyte sedimentation ra toñito 04-14-2022 ESR (Bld) [Velocity] 16 mm[facility]h 0-20 [facility] Work Phone: Hematocrit Auto (Bld) [Volum e fraction]on 04-14-2022 Hematocrit (Bld) [Volume fraction] 45.4 % 40-54 [facility] Work Phone: Ketones Test strip Ql (U)on 04-14-2022 Ketones Ql (U) 5 mg/dl Negative [facility] Work Phone: [phone] Laboratory - Chemistry and C hemistry - challengeon 04-14-2022 ALP [Catalytic activity/Vol] 100 U/L 45-117 [facility] Work Phone: ALT [Catalytic activity/Vol] 26 U/L 16-61 [facility] Work Phone: [phone] Globulin (S) [Mass/Vol] 3.9 g/dL 2.2-4.2 [facility] Work Phone: [phone] Laboratory - Hematology and Cell countson 04-14-2022 Erythrocyte distribution width (RBC) [Entitic vol] 43.9 fL 35.1-43.9 [facility] Work Phone: [phone] Erythrocyte distribution width (RBC) [Ratio] 13.7 % 11.6-14.6 [facility] Work Phone: [phone] Immature granulocytes/100 WBC (Bld) 0.400 % 0.0-0.9 [facility] Work Phone: [phone] Comment on above: IG% - Immature Granu locytes (promyelocytes, myelocytes and metamyelocytes) > 1% indicates that a LEFT SHIFT is Present. MCH (RBC) [Entitic mass] 29.5 pg 27.0-32.0 [facility] Work Phone: Nucleated RBC/100 WBC (Bld) [Ratio] 0 % 0-5 [facility] Work Phone: [phone] MCHC Auto (RBC) [Mass/Vol]on 04-14-2022 MCHC (RBC) [Mass/Vol] 33.7 g/dL 32-36 [facility] Work Phone: Mucus LM Ql (Urine sed)on Mucus Ql (Urine sed) 0 SEEN /hpf [facility] Work Phone: [phone] Nitrite Test strip Ql (U)on 04-14-2022 Nitrite Ql (U) Negative Negative [facility] Work Phone: [phone] No Panel Informationon 04-14 Estimated GFR (MDRD) Amer 68 mL/min >60 [facility] Work Phone: Comment on above: GFR Calc Estimated GFR (MDRD) Non-Af Amer 56 mL/min >60 [facility] Work Phone: Comment on above: Non- GFR Calc Platelets bldon 04-14-2022 Platelets (Bld) [#/Vol] 264 10*3/uL 150-450 [facility] Work Phone: Protein Test strip Ql (U)on 04-14-2022 Protein Ql (U) Negative Negative [facility] Work Phone: Serum or plasma C reactive p rotein measurement (mass/volume)on 04-14-2022 CRP [Mass/Vol] 6.58 mg/L 0.0-3.0 [facility] Work Phone: Comment on above: C-Reactive Protein ( CRP) provides useful information for thediagnosis, therapy and monitoring of inflammatory processesand associated diseases. For the evaluation of Relative Riskfor Cardiovascular Disease, a High Sensitivity CRP (HSCRP)should be ordered. Serum or plasma actin IgG an tibody assay (units/volume)on 04-14-2022 Actin IgG Qn 25 Units 0-19 [facility] Work Phone: Comment on above: Negative 0 - 19 Weak positive 20 - 30 Moderate to strong positive >30 Actin Antibodies are found in 52-85% of patients with autoimmune hepatitis or chronic active hepatitis and in 22% of patients with primary biliary cirrhosis.Performed at: [facility] [id number] Director: Kendall Olivera PhD, Phone: [phone] Serum or plasma albumin angela urement (mass/volume)on 04-14-2022 Albumin [Mass/Vol] 3.9 g/dL 3.2-5.0 [facility] Work Phone: Serum or plasma complement C 3 measurement (mass/volume)on 04-14-2022 Complement C3 [Mass/Vol] 129 mg/dL 82-167 [facility] Work Phone: Serum or plasma complement C 4 measurement (mass/volume)on 04-14-2022 Complement C4 [Mass/Vol] 25 mg/dL 12-38 [facility] Work Phone: Serum or plasma creatinine m easurement (mass/volume)on 04-14-2022 Creatinine [Mass/Vol] 1.34 mg/dL 0.70-1.30 [facility] Work Phone: Comment on above: The validity of the calculated GFR & GFRAA in patients over 70 years has not been determined. Clinical correlation is essential. Serum or plasma uric acid me asurement (mass/volume)on 04-14-2022 Urate [Mass/Vol] 4.3 mg/dL 3.5-7.2 [facility] Work Phone: Comment on above: The drugs N-Acetylcy steine and Metamizole may falsely depress this assay. Squamous epithelial cells de tection in urine sediment by light microscopyon 04-14-2022 Epithelial cells.squamous LM Ql (Urine sed) 0-5 SEEN /hpf 0-5 [facility] Work Phone: Thin prep Papanicolaou smear with manual screeningon 04-14-2022 Thin prep Papanicolaou smear with manual screening 15 U/L 15-37 [facility] Work Phone: Urine blood detectionon 03-21 RBC Ql (U) 150 /ul Negative [facility] Work Phone: RBC Ql (U) 10-25 SEEN /hpf 0-5 [facility] Work Phone: Urine clarityon 04-14-2022 Clarity (U) Sl. Cloudy Clear [facility] Work Phone: Urine color determinationon 04-14-2022 Color (U) Yellow Yellow [facility] Work Phone: Urine glucose detectionon Glucose Ql (U) Normal mg/dl Normal [facility] Work Phone: Urine leukocyte esterase det ection by dipstickon 04-14-2022 Leukocyte esterase Test strip Ql (U) 25 /ul Negative [facility] Work Phone: Urine pHon 04-14-2022 pH (U) 6.5 [pH] 5.0 - 8.0 [facility] Work Phone: Urine sediment bacteria coun t by microscopy (number/high power field)on 04-14-2022 Bacteria LM.HPF (Urine sed) [#/Area] 0 /[HPF] None Seen [facility] Work Phone: Urine specific gravity measu rementon 04-14-2022 Specific gravity (U) [Rel density] 1.015 1.002-1.03 0 [facility] Work Phone: Urobilinogen Auto test strip Ql (U)on 04-14-2022 Urobilinogen Ql (U) Normal mg/dl Normal [facility] Work Phone: Basophil percentageon 2021 Chloride [Moles/Vol] 106 mmol/L 98-107 [facility] Work Phone: Glucose [Mass/Vol] 113 mg/dL 74-106 [facility] Work Phone: Comment on above: Fasting Glucose resu lt from 100 to 125 mg/dL suggests IMPAIRED HOMEOSTASIS per A.D.A. criteria. Potassium [Moles/Vol] 4.1 mmol/L 3.5-5.1 [facility] Work Phone: Sodium [Moles/Vol] 140 mmol/L 136-145 [facility] Work Phone: WBC (Bld) [#/Vol] 6.3 10*3/uL 4.4-11.0 [facility] Work Phone: Blood erythrocytes count (nu mber/volume)on 04-01-2022 RBC (Bld) [#/Vol] 5.15 10*6/uL 4.6-6.2 [facility] Work Phone: Blood hemoglobin measurement (mass/volume)on 04-01-2022 Hemoglobin (Bld) [Mass/Vol] 15.5 g/dL 13.0-16.5 [facility] Work Phone: [phone] Blood platelet mean volumeon 04-01-2022 Platelet mean volume (Bld) [Entitic vol] 10.6 fL 6.2-12.0 [facility] Work Phone: [phone] Determination of erythrocyte mean corpuscular volume (MCV)on 04-01-2022 MCV (RBC) [Entitic vol] 88.5 fL 80-94 [facility] Work Phone: [phone] Hematocrit Auto (Bld) [Volum e fraction]on 04-01-2022 Hematocrit (Bld) [Volume fraction] 45.6 % 40-54 [facility] Work Phone: [phone] Laboratory - Chemistry and C hemistry - challengeon 04-01-2022 CO2 [Moles/Vol] 25.0 mmol/L 21.0-32.0 [facility] Work Phone: [phone] Urea nitrogen/Creatinine [Mass ratio] 17.3 mg/mg 10-20 [facility] Work Phone: [phone] Laboratory - Hematology and Cell countson 04-01-2022 Erythrocyte distribution width (RBC) [Entitic vol] 43.9 fL 35.1-43.9 [facility] Work Phone: [phone] Erythrocyte distribution width (RBC) [Ratio] 13.4 % 11.6-14.6 [facility] Work Phone: [phone] MCH (RBC) [Entitic mass] 30.1 pg 27.0-32.0 [facility] Work Phone: [phone] MCHC Auto (RBC) [Mass/Vol]on 04-01-2022 MCHC (RBC) [Mass/Vol] 34.0 g/dL 32-36 [facility] Work Phone: [phone] No Panel Informationon 04-01 Estimated GFR (MDRD) Amer 85 mL/min >60 [facility] Work Phone: [phone] Comment on above: GFR Calc Estimated GFR (MDRD) Non-Af Amer 70 mL/min >60 [facility] Work Phone: Comment on above: Non- GFR Calc Platelets bldon 04-01-2022 Platelets (Bld) [#/Vol] 244 10*3/uL 150-450 [facility] Work Phone: Serum or plasma calcium angela urement (mass/volume)on 04-01-2022 Calcium [Mass/Vol] 9.4 mg/dL 8.5-10.1 [facility] Work Phone: [phone] Serum or plasma creatinine m easurement (mass/volume)on 04-01-2022 Creatinine [Mass/Vol] 1.10 mg/dL 0.70-1.30 [facility] Work Phone: Comment on above: The validity of the calculated GFR & GFRAA in patients over 70 years has not been determined. Clinical correlation is essential. Serum or plasma urea nitroge n measurement (mass/volume)on 04-01-2022 Urea nitrogen [Mass/Vol] 19 mg/dL 7-18 [facility] Work Phone: Thin prep Papanicolaou smear with manual screeningon 04-01-2022 Thin prep Papanicolaou smear with manual screening 9 5-15 [facility] Work Phone: Basophil percentageon 2021 Chloride [Moles/Vol] 104 mmol/L 98-107 [facility] Work Phone: Cholesterol [Mass/Vol] 171 mg/dL <200 [facility] Work Phone: Comment on above: <200 mg/dL Desirable 200-240 mg/dL Borderline >240 mg/dL High Risk Glucose [Mass/Vol] 101 mg/dL 74-106 [facility] Work Phone: Comment on above: Fasting Glucose resu lt from 100 to 125 mg/dL suggests IMPAIRED HOMEOSTASIS per A.D.A. criteria. Potassium [Moles/Vol] 3.9 mmol/L 3.5-5.1 [facility] Work Phone: Sodium [Moles/Vol] 139 mmol/L 136-145 [facility] Work Phone: [phone] Triglyceride [Mass/Vol] 161 mg/dL <199 [facility] Work Phone: Comment on above: The drugs N-Acetylcy steine and Metamizole may falsely depress this assay.Serum Triglycerides Reference Interval Normal <150 mg/dL Borderline high 150 - 199 mg/dL High 200 - 499 mg/dL Very High > or = 500 mg/dL Laboratory - Chemistry and C hemistry - challengeon 11-18-2021 CO2 [Moles/Vol] 27.0 mmol/L 21.0-32.0 [facility] Work Phone: Urea nitrogen/Creatinine [Mass ratio] 13.9 mg/mg 10-20 [facility] Work Phone: No Panel Informationon 11-18 Estimated GFR (MDRD) Amer 81 mL/min >60 [facility] Work Phone: Comment on above: GFR Calc Estimated GFR (MDRD) Non-Af Amer 67 mL/min >60 [facility] Work Phone: Comment on above: Non- GFR Calc Prostate Specific Antigen Total 8.74 ng/mL 0.0-4.0 [facility] Work Phone: Comment on above: This test was perfor med using the TPSA assay method for the[facility]. Values obtained with differentassay methods cannot be used interchangably.When changing PSA assays in the course of monitoring apatient, additional sequential testing should be carriedout to confirm baseline values. Serum or plasma calcium angela urement (mass/volume)on 11-18-2021 Calcium [Mass/Vol] 9.2 mg/dL 8.5-10.1 [facility] Work Phone: [phone] Serum or plasma cholesterol in HDL measurement (mass/volume)on 11-18-2021 Cholesterol in HDL [Mass/Vol] 39 mg/dL >40 [facility] Work Phone: Comment on above: The drugs N-Acetylcy steine and Metamizole may falsely depress this assay. Reference Range HDL <40 mg/dL Low HDL Cholesterol HDL >or= 60 mg/dL High HDL Cholesterol Serum or plasma cholesterol in VLDL measurement (mass/volume)on 11-18-2021 Cholesterol in VLDL [Mass/Vol] 32 mg/dL 5-40 [facility] Work Phone: Serum or plasma creatinine m easurement (mass/volume)on 11-18-2021 Creatinine [Mass/Vol] 1.15 mg/dL 0.70-1.30 [facility] Work Phone: Comment on above: The validity of the calculated GFR & GFRAA in patients over 70 years has not been determined. Clinical correlation is essential. Serum or plasma low density lipoprotein (LDL) cholesterol measurement (mass/volume)on 11-18-2021 Cholesterol in LDL [Mass/Vol] 100 mg/dL 0-130 [facility] Work Phone: [phone] Serum or plasma urea nitroge n measurement (mass/volume)on 11-18-2021 Urea nitrogen [Mass/Vol] 16 mg/dL 7-18 [facility] Work Phone: Thin prep Papanicolaou smear with manual screeningon 11-18-2021 Thin prep Papanicolaou smear with manual screening 8 5-15 [facility] Work Phone: Absolute lymphocyte counton 08-13-2021 Lymphocytes Auto (Unsp spec) [#/Vol] 1.57 10*3/uL 0.83-4.51 [facility] Work Phone: Basophil percentageon 2021 Basophil percentage 0-5 SEEN /hpf [facility] Work Phone: Basophil percentage < 0.2 [facility] Work Phone: Basophil percentage 0.7 [facility] Work Phone: Basophils/100 WBC (Bld) 0.8 % 0-1 [facility] Work Phone: Bilirubin [Mass/Vol] 0.50 mg/dL 0.20-1.00 [facility] Work Phone: Comment on above: For patients on eltr ombopag therapy, use of Dimension [place] TBIL is not recommended. Eosinophils/100 WBC (Bld) 1.5 % 0-5 [facility] Work Phone: Neutrophils (Bld) [#/Vol] 4.0 10*3/uL 2.0-7.7 [facility] Work Phone: Neutrophils/100 WBC (Bld) 64.1 % 47-70 [facility] Work Phone: Protein [Mass/Vol] 8.0 g/dL 6.4-8.2 [facility] Work Phone: WBC (Bld) [#/Vol] 6.2 10*3/uL 4.4-11.0 [facility] Work Phone: Bilirubin Test strip Ql (U)o n 08-13-2021 Bilirubin Ql (U) Negative Negative [facility] Work Phone: [phone] Blood erythrocytes count (nu mber/volume)on 08-13-2021 RBC (Bld) [#/Vol] 5.32 10*6/uL 4.6-6.2 [facility] Work Phone: Blood hemoglobin measurement (mass/volume)on 08-13-2021 Hemoglobin (Bld) [Mass/Vol] 15.8 g/dL 13.0-16.5 [facility] Work Phone: Blood lymphocytes/100 leukoc yteson 08-13-2021 Lymphocytes/100 WBC (Bld) 25.5 % 19-41 [facility] Work Phone: Blood monocytes/100 leukocyt eson 08-13-2021 Monocytes/100 WBC (Bld) 7.8 % 0-10 [facility] Work Phone: Blood platelet mean volumeon 08-13-2021 Platelet mean volume (Bld) [Entitic vol] 10.8 fL 6.2-12.0 [facility] Work Phone: Determination of erythrocyte mean corpuscular volume (MCV)on 08-13-2021 MCV (RBC) [Entitic vol] 87.0 fL 80-94 [facility] Work Phone: [phone] Direct bilirubinon Bilirubin.direct [Mass/Vol] 0.12 mg/dL 0.00-0.30 [facility] Work Phone: [phone] Hematocrit Auto (Bld) [Volum e fraction]on 08-13-2021 Hematocrit (Bld) [Volume fraction] 46.3 % 40-54 [facility] Work Phone: [phone] Ketones Test strip Ql (U)on 08-13-2021 Ketones Ql (U) 5 mg/dl Negative [facility] Work Phone: [phone] Laboratory - Chemistry and C hemistry - challengeon 08-13-2021 ALP [Catalytic activity/Vol] 108 U/L 45-117 [facility] Work Phone: [phone] [Catalytic activity/Vol] 40 U/L 16-61 [facility] Work Phone: [phone] Globulin (S) [Mass/Vol] 4.1 g/dL 2.2-4.2 [facility] Work Phone: [phone] Laboratory - Hematology and Cell countson 08-13-2021 Erythrocyte distribution width (RBC) [Entitic vol] 41.1 fL 35.1-43.9 [facility] Work Phone: [phone] Erythrocyte distribution width (RBC) [Ratio] 13.2 % 11.6-14.6 [facility] Work Phone: [phone] Immature granulocytes/100 WBC (Bld) 0.300 % 0.0-0.9 [facility] Work Phone: [phone] Comment on above: IG% - Immature Granu locytes (promyelocytes, myelocytes and metamyelocytes) > 1% indicates that a LEFT SHIFT is Present. MCH (RBC) [Entitic mass] 29.7 pg 27.0-32.0 [facility] Work Phone: [phone] Nucleated RBC/100 WBC (Bld) [Ratio] 0 % 0-5 [facility] Work Phone: [phone] MCHC Auto (RBC) [Mass/Vol]on 08-13-2021 MCHC (RBC) [Mass/Vol] 34.1 g/dL 32-36 [facility] Work Phone: Mucus LM Ql (Urine sed)on Mucus Ql (Urine sed) 0 SEEN /hpf [facility] Work Phone: Nitrite Test strip Ql (U)on 08-13-2021 Nitrite Ql (U) Negative Negative [facility] Work Phone: No Panel Informationon 08-13 ALISSA 8 Profile Comment [facility] Work Phone: Comment on above: Autoantibody Disease Association Condition Frequency Antinuclear Antibody, SLE, mixed connectiveDirect (ALISSA-D) tissue diseases dsDNA SLE 40 - 60% Chromatin Drug induced SLE 90% SLE 48 - 97% SSA (Ro) SLE 25 - 35% Sjogren's Syndrome 40 - 70% Lupus 100% SSB (La) SLE 10% Sjogren's Syndrome 30% Sm (anti-Ferguson) SLE 15 - 30% RNP Mixed Connective Tissue Disease 95%(U1 nRNP, SLE 30 - 50%anti-ribonucleoprotein) Polymyositis and/or Dermatomyositis 20% Scl-70 (antiDNA Scleroderma (diffuse) 20 - 35%topoisomerase) Crest 13% Jo-1 Polymyositis and/or Dermatomyositis 20 - 40% Centromere B Scleroderma - Crest variant 80% Ribosomal P SLE 10 - 20%Performed at: [facility] [address] [place], [place] [id number] Director: Kendall Olivera PhD, Phone: [phone] Centromere B Antibody <0.2 [facility] Work Phone: Estimated GFR (MDRD) Amer 76 mL/min >60 [facility] Work Phone: Comment on above: GFR Calc Estimated GFR (MDRD) Non-Af Amer 63 mL/min >60 [facility] Work Phone: Comment on above: Non- GFR Calc SOFTWARE CONFIGURATION SPECIALIST Antibody <0.2 [facility] Work Phone: Platelets bldon 08-13-2021 Platelets (Bld) [#/Vol] 297 10*3/uL 150-450 [facility] Work Phone: Protein Test strip Ql (U)on 08-13-2021 Protein Ql (U) 15 mg/dl Negative [facility] Work Phone: Serum DNA double strand anti body assay (units/volume)on 08-13-2021 DNA double strand Ab Qn (S) [IU]/mL [facility] Work Phone: Comment on above: Negative <5 Equivoca l 5 - 9 Positive >9 Serum Harriet-1 antibody assay (u nits/volume)on 08-13-2021 Harriet-1 extractable nuclear Ab Qn (S) <0.2 [facility] Work Phone: Serum Scl-70 extractable nuc lear antibody assay (units/volume)on 08-13-2021 SCL-70 extractable nuclear Ab Qn (S) <0.2 [facility] Work Phone: Serum Ferguson extractable nucl ear antibody detectionon 08-13-2021 Ferguson extractable nuclear Ab Ql (S) <0.2 [facility] Work Phone: Serum nuclear antibody titer by immunofluorescenceon 08-13-2021 Nuclear Ab IF (S) [Titer] See comment [facility] Work Phone: Comment on above: TEST RESULT LIMITSAn tinuclear Antibodies, IFA Positive Abnormal Negative <1:80 Borderline 1:80 Positive >1:80Homogeneous Pattern 1:160 High ICAP nomenclature: AC-1Note: For more information about Hep-2 cell patterns useANApatterns.org, the official website for the InternationalConsensus on Antinuclear Antibody (ALISSA) Patterns (ICAP). -------A positive ALISSA result may occur in healthy individuals (lowtiter) or be associated with a variety of diseases. Seeinterpretation chart which is not all inclusive:Pattern Antigen Detected Suggested Disease Association Homogeneous DNA(ds,ss), SLE - High titers Nucleosomes, Histones Drug-induced SLE Speckled Sm, SOFTWARE CONFIGURATION SPECIALIST, SCL-70, SLE,MCTD,PSS (diffuse form), SS-A/SS-B Sjogrens Nucleolar SCL-70, PM-1/SCL High titers Scleroderma, PM/DM Centromere Centromere PSS (limited form) w/Crest syndrome variable Nuclear Dot Sp100,m05-yayvke Primary Biliary Cirrhosis Nuclear GP210, Primary Biliary CirrhosisMembrane tay A,B,C TESTING PERFORMED AT [facility]. ORIGINAL REPORT ON FILE IN LAB CONTAINS ADDITIONAL TEST SITE INFORMATION. Serum or plasma actin IgG an tibody assay (units/volume)on 08-13-2021 Actin IgG Qn 12 Units [facility] Work Phone: Comment on above: Negative 0 - 19 Weak positive 20 - 30 Moderate to strong positive >30 Actin Antibodies are found in 52-85% of patients with autoimmune hepatitis or chronic active hepatitis and in 22% of patients with primary biliary cirrhosis.Performed at: [employer] [address] [id number] Director: Kendall Olivera PhD, Phone: [phone] Serum or plasma albumin angela urement (mass/volume)on 08-13-2021 Albumin [Mass/Vol] 3.9 g/dL 3.2-5.0 [facility] Work Phone: Serum or plasma complement C 3 measurement (mass/volume)on 08-13-2021 Complement C3 [Mass/Vol] 138 mg/dL [facility] Work Phone: Serum or plasma complement C 4 measurement (mass/volume)on 08-13-2021 Complement C4 [Mass/Vol] 24 mg/dL [facility] Work Phone: Serum or plasma creatinine m easurement (mass/volume)on 08-13-2021 Creatinine [Mass/Vol] 1.21 mg/dL 0.70-1.30 [facility] Work Phone: Comment on above: The validity of the calculated GFR & GFRAA in patients over 70 years has not been determined. Clinical correlation is essential. Serum or plasma uric acid me asurement (mass/volume)on 08-13-2021 Urate [Mass/Vol] 3.9 mg/dL 3.5-7.2 [facility] Work Phone: Comment on above: The drugs N-Acetylcy steine and Metamizole may falsely depress this assay. Squamous epithelial cells de tection in urine sediment by light microscopyon 08-13-2021 Epithelial cells.squamous LM Ql (Urine sed) 0 SEEN /hpf [facility] Work Phone: Thin prep Papanicolaou smear with manual screeningon 08-13-2021 Thin prep Papanicolaou smear with manual screening 27 U/L 15-37 [facility] Work Phone: Urine blood detectionon 07-22 RBC Ql (U) 25 /ul Negative [facility] Work Phone: RBC Ql (U) 0-5 SEEN /hpf [facility] Work Phone: Urine clarityon 08-13-2021 Clarity (U) Clear Clear [facility] Work Phone: Urine color determinationon 08-13-2021 Color (U) Yellow Yellow [facility] Work Phone: Urine glucose detectionon Glucose Ql (U) Normal mg/dl Normal [facility] Work Phone: Urine leukocyte esterase det ection by dipstickon 08-13-2021 Leukocyte esterase Test strip Ql (U) 25 /ul Negative [facility] Work Phone: Urine pHon 08-13-2021 pH (U) 5.0 [pH] [facility] Work Phone: Urine sediment bacteria coun t by microscopy (number/high power field)on 08-13-2021 Bacteria LM.HPF (Urine sed) [#/Area] 1 /[HPF] None Seen [facility] Work Phone: Urine specific gravity measu rementon 08-13-2021 Specific gravity (U) [Rel density] 1.020 [facility] Work Phone: Urobilinogen Auto test strip Ql (U)on 08-13-2021 Urobilinogen Ql (U) Normal mg/dl Normal [facility] Work Phone: HLA-B27 PCRon 06-14-2019 HLA-B27 DNA Result Negative Normal [facility] Comment on above: Performed By: #### R F #### [facility] [address] [address] #### ANAIFS #### [facility] [address] [address] HLA-B27 PCR [CCL]on 06-14-20 19 HLA-B27 DNA Result Negative Normal [facility] Comment on above: Result Comment: HLA- B27 is strongly associated with ankylosing spondylitis (). HLA-B27 is also associated with other seronegative arthropathies such as Monica syndrome and psoriatic arthritis as well as extra-articular diseases such as anterior uveitis and inflammatory bowel disease. Greater than 90% of patients with are HLA-B27 positive. The frequency of HLA-B27 varies by ethnic group but generally <10 % in most [place] populations. HLA-B27 associated susceptibility to varies by population and HLA-B27 alleles detected. Some alleles such as B27:05 are associated with high susceptibility while others such B27:06 and B27:09 are associated with low susceptibility. HLA-B27 allele typing is recommended in HLA-B27 positive cases. HLA typing performed by PCR-RSSOP and/or SBT. This test was developed and its performance characteristics determined by [employer]. The test has not been cleared or approved by the [place] FDA. However, FDA approval was not necessary since this lab is certified under CLIA for high complexity testing. Test performed by: Palamida, [employer] [address] [id number] CLIA [id number] Performed By: #### 2 [id number] #### [facility],[address] [place] [address] ALISSA BY IFA SCREEN [CCL]on ALISSA Pattern Speckled Normal [facility] Comment on above: Result Comment: [place] [address] Garry Ayala III, M.D. [id number] Performed By: #### 2 [id number] #### [address] [address] ALISSA Titer 1:80 Abnormal NEGAT [facility] Comment on above: Performed By: #### 2 [id number] #### [address] [address] Nuclear Ab IF (S) [Titer] Positive Abnormal NEGAT [facility] Comment on above: Result Comment: Norm al range : negative at <1:80 serum dilution. Performed By: #### 2 [id number] #### [address] [address] ALISSA by IFAon 06-10-[address] ALISSA Pattern S[address]K Normal [facility] Comment on above: Performed By: #### R F #### [facility] [address] [place] [address] #### ANAIFS #### [facility] [address] [place] [address] ALISSA Titer D[address] [facility] Comment on above: Performed By: #### R F #### [facility] [address] [place] [address] #### ANAIFS #### [facility] [address] [address] Nuclear Ab IF (S) [Titer] Positive Abnormal Negative [facility] Comment on above: Performed By: #### R F #### [facility] [address] [place] [address] #### ANAIFS #### [facility] [address] [place] [address] RHEUMATOID FACTOR [CCL]on Rheumatoid Factor 11 IU/mL Normal <16 [facility] Comment on above: Result Comment: [facility] [place] [address] Garry Ayala III, M.D. [id number] Performed By: #### 2 [id number] #### [facility],[address] [place] [address] Rheumatoid Factoron 06-09-20 19 Rheumatoid Factor 11 IU/mL Normal <16 [facility] Comment on above: Performed By: #### R F #### [facility] [address] #### ANAIFS #### [facility] [address] [place] [address] C-REACTIVE PROTEINon 019 CRP [Mass/Vol] 5.20 mg/dl High 0.00 - 1.00 [facility] Comment on above: Performed By: #### 2 [id number] #### [facility],[address] [place] [address] SEDRATEon 06-08-2019 SEDRATE 33 mm/hr High 0 - 20 [facility] Comment on above: Performed By: #### 2 86535 #### [facility],[address] [place], [place] [address] URIC ACIDon 06-08-2019 Urate [Mass/Vol] 6.3 mg/dL Normal 4.4 - 7.6 [facility] Comment on above: Performed By: #### 2 22651 #### [facility],[address] [id number] Clinical Summary: HMSPatient IDon 03-14-2018 OOP Invalid Interpretation Code [facility] Work Phone: Clinical Summary: Scanned RO S Summaryon 03-14-2018 endocrine ROS Denies Invalid Interpretation Code [facility] Work Phone: genitourinary review of systems, E&M Denies Invalid Interpretation Code [facility] Work Phone: Lymphocytes Auto #/vol (Bld) Denies Invalid Interpretation Code [facility] Work Phone: ROS cardiovascular E&M Denies Invalid Interpretation Code [facility] Work Phone: ROS ENT E&M Denies Invalid Interpretation Code [facility] Work Phone: ROS gastrointestinal E&M Denies Invalid Interpretation Code [facility] Work Phone: ROS general E&M Denies Invalid Interpretation Code [facility] Work Phone: ROS Musculoskeletal comments Joint Pain,Stiffness Invalid Interpretation Code [facility] Work Phone: ROS musculoskeletal E&M Complains Invalid Interpretation Code [facility] Work Phone: ROS neurological E&M Denies Invalid Interpretation Code [facility] Work Phone: ROS psychiatric E&M Denies Invalid Interpretation Code [facility] Work Phone: ROS pulmonary E&M Denies Invalid Interpretation Code [facility] Work Phone: ROS skin E&M Denies Invalid Interpretation Code [facility] Work Phone: Office Visit: New - 1st visi t with practice, Rm: 42on 03-14-2018 NEGATED: Highlighted rowMRI (magnetic resonance imaging) history of the shoulder on 12/12/2017 at [facility] Invalid Interpretation Code [facility] Work Phone: NEGATED: Highlighted rowProtein mass conc Done Invalid Interpretation Code [facility] Work Phone: NEGATED: Highlighted rowTobacco smoking status NHIS Tobacco smoking status NHIS Invalid Interpretation Code [facility] Work Phone: Vital Signs Date Time Vital Sign Value Performing Clinician Facility NEGATED: Highlighted [id number] 14:54-0400 BMI (Body Mass Index) 29.45 kg/m2 Dominique Winklestine [employer] [facility] [place] [facility] Work Phone: NEGATED: Highlighted [id number] 14:54-0400 BP Diastolic 81 mm[Hg] Dominique Winklestine [employer] [facility] [place] [facility] Work Phone: NEGATED: Highlighted [id number] 14:54-0400 BP Diastolic 84 mm[Hg] Dominique Winklestine [employer] [facility] [place] [facility] Work Phone: NEGATED: Highlighted [id number] 14:54-0400 BP Systolic 147 mm[Hg] Dominique Winklestine [employer] [facility] [place] [facility] Work Phone: NEGATED: Highlighted [id number] 14:54-0400 BP Systolic 146 mm[Hg] Dominique Winklestine [employer] [facility] [place] [facility] Work Phone: NEGATED: Highlighted [id number] 14:54-0400 Height 172.72 cm Dominique Winklestine [employer] [facility] [place] [facility] Work Phone: NEGATED: Highlighted [id number] 14:54-0400 Height 173 cm Dominique Thomson LPN [facility] Work Phone: NEGATED: Highlighted [id number] 14:54-0400 Pulse (Heart Rate) 80 /min Dominique Thomson LPN [facility] Work Phone: NEGATED: Highlighted [id number] 14:54-0400 Weight 87.54 kg Dominique Thomson [employer] [facility] Work Phone: NEGATED: Highlighted [id number] 14:54-0400 Weight 88 kg Dominique Thomson [employer] [facility] Work Phone: Encounters Encounter Date Encounter Type Care Provider Facility Start: 12-06-2024 ambulatory Kang Ash Facility:[facility] Start: 12-05-2024 Encounter for preprocedural laboratory examination Kang Ash [facility] Start: 12-03-2024 ambulatory Kang Ash Facility:[facility] Start: 12-03-2024 End: 12-05-2024 Telephone encounter Kang Marcelino DO Work Phone: Hematology/Oncology Comment on above: New Patient Start: 11-27-2024 End: 11-27-[address] Kang Ash MD Work Phone: [facility] Work Phone: Start: 11-27-2024 End: 11-27-[address] Braydon Hills MD -[facility] [place] Work Phone: Start: 11-26-2024 End: 11-27-2024 ambulatory KANG ASH Facility:[facility] Start: 11-26-2024 End: 11-26-2024 Subsequent hospital visit by physician [employer] [facility] Wstr (I-Stat/1.5t) Work Phone: Radiology Comment on above: M79.605 LT LEG PAIN Start: 11-13-2024 End: 11-13-[address] Kang Ash MD Work Phone: [facility] Work Phone: Start: 11-13-2024 End: 11-13-[address] Sanju Carlos MD -[facility] [place] Work Phone: Start: 11-13-2024 End: 11-13-2024 ambulatory Kang Ash [facility] Start: 11-05-2024 ambulatory Kang Ash Facility:[facility] Start: 11-05-[address] Kang wheeler MD -Physical Therapy Work Phone: Start: 09-26-2024 End: 09-26-[address] Kang Ash MD Work Phone: [facility] Work Phone: Start: 09-26-2024 End: 09-26-[address] Kang Ash MD -Laboratory, [place] Work Phone: Start: 09-26-2024 End: 09-26-2024 ambulatory Kang Ash Facility[facility] Start: 08-17-2024 End: 08-17-[address] Kang Ash MD Work Phone: [facility] Work Phone: Start: 08-17-2024 End: 08-17-[address] Sanju Carlos MD -Laboratory, [place] Work Phone: Start: 08-17-2024 End: 08-17-2024 ambulatory Kang Ash Facility[facility] Start: 06-18-2024 End: 06-18-[address] Sanju Carlos MD -Laboratory, [place] Work Phone: Start: 06-18-2024 End: 06-18-2024 ambulatory Kang Ash Facility[facility] Start: 03-19-2024 Encounter for genera l adult medical examination without abnormal findings Kang Ash [facility] Start: 02-28-2024 End: 02-28-2024 ambulatory Kang Ash Facility[facility] Start: 01-05-2024 ambulatory Lc Merlos Facility:[facility] Start: 01-05-2024 End: 01-05-2024 ambulatory Kang Ash Facility[facility] Start: 09-23-2023 End: 09-23-2023 ambulatory [facility] Work Phone: Start: 09-23-2023 End: 09-23-2023 Patient encounter procedure [facility] Start: 05-25-2023 End: 05-25-2023 ambulatory [facility] Work Phone: Start: 05-25-2023 End: 05-25-2023 Patient encounter procedure [facility] Work Phone: Start: 02-07-2023 End: 02-07-2023 ambulatory [facility] Work Phone: Start: 02-07-2023 End: 02-07-2023 Patient encounter procedure [facility] Start: 12-17-2022 End: 12-17-2022 ambulatory [facility] Work Phone: Start: 12-17-2022 End: 12-17-2022 Patient encounter procedure [facility] Work Phone: Start: 10-19-2022 End: 10-19-2022 ambulatory [facility] Work Phone: Start: 10-19-2022 End: 10-19-2022 Patient encounter procedure [facility] Start: 09-30-2022 End: 09-30-2022 ambulatory [facility] Work Phone: Start: 09-30-2022 End: 09-30-2022 Patient encounter procedure [facility] Start: 08-20-2022 End: 08-20-2022 ambulatory [facility] Work Phone: Start: 08-20-2022 End: 08-20-2022 [facility] Start: 04-14-2022 End: 04-14-[address] Kang Ash Work Phone: [facility] Work Phone: Start: 04-14-2022 End: 04-14-[address] [facility] Start: 04-12-2022 End: 04-12-[address] Kang Ash Work Phone: [facility] Work Phone: Start: 04-12-2022 End: 04-12-[address] [facility] Start: 04-01-2022 End: 04-01-2022 ambulatory [facility] Work Phone: Start: 04-01-2022 End: 04-01-2022 [facility] Start: 03-26-2022 End: 03-26-2022 Patient encounter procedure [facility]Neurology Start: 03-26-2022 Non-patient / Non-visit Dr. David Ash Work Phone: [facility] Start: 11-18-2021 End: 11-18-2021 [facility] Start: 09-15-2021 Registered Recurring [facility]-Physical Therapy Start: 08-24-2021 End: 08-24-2021 [facility] Start: 08-13-2021 End: 08-13-2021 [facility] Start: 06-08-2019 End: 06-08-2019 Patient encounter procedure MICHELLE SONG [facility] Start: 03-14-2018 End: 03-14-2018 Patient encounter procedure Serjio Gleason MD Work Phone: [facility] Work Phone: Procedures Date Procedure Procedure Detail Performing Clinician Start: 11-27-2024 Assay of prostate sp ecific antigen total Dr. Kang Ash MD Work Phone: Comment on above: This test was perfor med using the [employer] tPSA method. Measured values of a patient sample can vary depending on the testing procedure used. PSA values determined on patient samples by different testing procedures cannot be used interchangeably. If there is a change in PSA assays while monitoring therapy, sequential testing should be performed to confirm baseline values. Start: 08-17-2024 Plain x-ray of pelvi s and lower extremity Dr. Kang Ash MD Work Phone: Start: 12-17-2022 Urine culture Start: 08-24-2021 Radiologic examinati on of knee Start: 03-14-2018 End: 03-14-2018 Arthrocentesis aspir&/inj major jt/bursa w/o us Serjio Gleason MD Work Phone: Start: 03-14-2018 End: 03-14-2018 Blood pressure outside of normal parameters - follow-up not documented Serjio Gleason MD Work Phone: Start: 03-14-2018 End: 03-14-2018 BMI documented as above normal parameters - follow-up documented Serjio Gleason MD Work Phone: Start: 03-14-2018 End: 03-14-2018 Current medications documented Serjio Gleason MD Work Phone: Start: 03-14-2018 End: 03-14-2018 Injection - triamcinolone acetonide 10 mg Serjio Gleason MD Work Phone: Start: 03-14-2018 End: 03-14-2018 Pain assessment documented as positive - follow-up documented Serjio Gleason MD Work Phone: Start: 03-14-2018 End: 03-14-2018 Tobacco non-user Serjio Gleason MD Work Phone: Urine culture Plan of Treatment Date Care Activity Detail Author Start: 09-22-2027 Urine microalbumin profile DTa P,Tdap,Td Vaccine (2 - Td or Tdap) [facility] Start: 12-11-2024 End: 12-11-2024 ambulatory 12/11/2024 9:30 AM EDT Visit (SP) Office Hematology/Oncology [address] [place], [place] [id number] Kang Marcelino, [address] [place], [place] [address] INCIDENT HANDLER/metastatic bone tumor/REFERRED BY KANG GARCIA/1ST AVAILABLE* Hematology/Oncology Comment on above: INCIDENT HANDLER/metastatic bone t umor/REFERRED BY KANG GARCIA/1ST AVAILABLE* Start: 06-20-2024 Advance Directive Discussion A dvance Directive Discussion [facility] Start: 06-20-2024 Medicare Advantage A nnual Wellness Visit Medicare Advantage Annual Wellness Visit [facility] Start: 02-19-2024 Covid-19 Vaccine () Covid-19 Vaccine () [facility] Start: 04-14-2022 [facility] Work Phone: Start: 03-14-2018 End: 03-14-2018 Appointment Appointment [facility] Work Phone: Start: 06-27-2013 Shingrix Vaccine (2 of 3) [place] grix Vaccine (2 of 3) [facility] Start: 1997 Diabetes Screening Diabetes Screenin g [facility] Start: 1997 Screening for malign ant neoplasm of colon [facility] Start: 1987 Lipid panel Lipid Screening [facility] Start: 1970 Anxiety Screening Anxiety Screening [facility] Start: 1970 Depression Screening Depression Scre ening [facility] Start: 1970 Hepatitis C screening Hepatiti s C Screening [facility] DNA double strand Ab [Units/volume] in Serum [facility] Work Phone: Nuclear Ab [Titer] i n Serum by Immunofluorescence [facility] Work Phone: Patient Education \cps-sql1\CPS_ PtEduc ation\htn.pdf [facility] Work Phone: Immunizations Immunization Date Immunization Notes Care Provider Karey portillo No information available. Dominique Thomson LPN [facility] Work Phone: Payers Date Payer Category Payer Self-pay [id number] 2020 Medicare (Managed Care) MMO [employer] HMO Member Subscriber Plan / Payer (Effective 2020-Present) Name: Marcie Holmann Relation to Subscriber: Self Name: Esthelalorettaliam Merlin Payer ID: Not on file Type: HMO Address: [place] [id number] 2020 Medicare [id number] 2012 Unknown [id number] 1950 Unknown [id number] Unknown [id number] Unknown [id number]. 462 Unknown [id number] [id number]. 462 Unknown [id number] 2.0.1.357639.3.579.2. 462 Unknown [id number] 2.840.1.724165.3.579.2. 462 Unknown [id number] 2.0.1.882540.3.579.2. 462 Unknown [id number] 2.16.840.1.265523.3.579.2. 462 Unknown [id number] 2.16.840.1.111063.3.579.2. 462 Unknown [id number] 2.16.840.1.422225.3.579.2. 462 Unknown [id number] 2.16.840.1.471365.3.579.2. 462 Unknown [id number] 2.16.840.1.894514.3.579.2. 462 Unknown [id number] 2.16.840.1.021964.3.579.2. 462 Unknown [id number] [id number]. 462 Social History Date Type Detail Facility Start: 04-03-2021 End: 04-03-2021 Tobacco smoking status [facility] Unknown if ever smoked [facility] Start: 1950 Sex Assigned At Male [facility] Start: 04-03-2021 Tobacco smoking status [facility] Never smoked tobacco (finding) [facility] Start: 08-30-2024 End: 09-28-2024 Sex Male (finding) [facility] Start: 1950 Sex assigned at Not on file [facility] Gender identity Not on file [facility] NEGATED: Highlighted rowStart: 03-14-2018 End: 03-14-2018 Alcohol use ETOH USE No [facility] Work Phone: NEGATED: Highlighted rowStart: 03-14-2018 End: 03-14-2018 Details of drug misuse behavior DRUG USE No [facility] Work Phone: NEGATED: Highlighted rowStart: 03-14-2018 End: 03-14-2018 Assertion Never smoker [facility] Work Phone: Clinical Notes 08-18-2024 to 12-05-2024 Telephone Encounter - Meredith Young - 12/05/2024 3:15 PM EDTTelephone Encounter - Meredith Young - 12/05/2024 3:15 PM EDTTelephone Encounter - Danyell Wharton LPN - 12/05/2024 1:18 PM EDT Note Date & Type Note Facility 12-05-2024 Telephone encount er Note This has been scheduled as directed. All pts successfully moved and aware. Meredith Young [facility] 12-05-2024 Miscellaneous Notes Formattin g of this note might be different from the original. This has been scheduled as directed. All pts successfully moved and aware. Meredith Young Records received. Chart assembled. Chart given to PSS. Patient is scheduled for a bone biopsy 12/06/2024 @ [facility]. PSS- please schedule patient to see Dr. Marcelino on 12/11/2024 @ 9:30 block 60 minutes and schedule as a NEW patient. Patient is aware of appointment date and time. DX: metastatic bone lesions Referring: Kang Ash We will be moving the three patients that are currently occupying those slots. Danyell Wharton LPN Only received a partial OV note. Additional records requested. Danyell Wharton LPN Dr. Thomas's office is faxing urgent referral/records to 46. documented in this encounter [facility] 12-05-2024 Telephone encount er Note Records received. Chart assembled. Chart given to PSS. Patient is scheduled for a bone biopsy 12/06/2024 @ [facility]. [facility]- please schedule patient to see Dr. Marcelino on 12/11/2024 @ 9:30 block 60 minutes and schedule as a NEW patient. Patient is aware of appointment date and time. DX: metastatic bone lesions Referring: Kang Ash We will be moving the three patients that are currently occupying those slots. Danyell Wharton LPN [facility] 12-03-2024 Telephone encount er Note Only received a partial OV note. Additional records requested. Danyell Wharton LPN [facility] 12-03-[address] Note Dr. Thomas's office is faxing urgent referral/records to [facility] 11-26-2024 History of Presen t illness Narrative Radiology Service Progress Note DATE OF SERVICE: November 26, 2024 TIME: 1:39 PM PATIENT IDENTITY VERIFICATION COMPLETED USING TWO (2) STANDARD IDENTIFIERS: Name and Date of confirmed by patient verbally. FALL SCREENING: Has the patient had 2 falls in the last year or 1 fall with injury or currently using an Ambulatory Assistive Device (Walker, Cane, Wheelchair, Crutches, etc.)? Yes, Patient High Risk for Falls What interventions were put in place to prevent falls during this visit? Instructed Patient to Call for Help if Needed, Offered Assistance with Transfers/Clothing, Instructed Patient to Remain Seated (Not on Exam Table) Until Exam, and Increased Observations by Caregivers PATIENT GENDER DATA: Assigned male at PATIENT RELEVANT IMPLANT DATA REVIEWED: Yes PATIENT PRESENTS WITH AN IMPLANTABLE OR ATTACHED MEDICATION NURSE: No ALLERGIES: Reviewed and unchanged CONTRAST ALLERGY: NO. EXAM: MRI - CONTRAST TYPE: GROUP II PERIPHERAL IV DATA: Ambulatory: A peripheral IV was started in the Left antecubital site with a Angio cath: 22 gauge. RADIOLOGY DEPARTMENT: MR; Exam(s) Completed: Lower MSK: Femur, left. Lavender Administered: No SIGNATURE: RT Patel(R) PATIENT NAME: Merlin Holman DATE: November 26, 2024 TIME: 1:39 PM documented in this encounter [facility] 11-26-2024 Note HNO ID: [id number] Author: ELVA GUPTA RT(R) Service: ? Author Type: Technologist Type: Progress Notes Filed: 11/26/2024 13:41 Note Text: Radiology Service Progress Note DATE OF SERVICE: November 26, 2024 TIME: 1:39 PM PATIENT IDENTITY VERIFICATION COMPLETED USING TWO (2) STANDARD IDENTIFIERS: Name and Date of confirmed by patient verbally. FALL SCREENING: Has the patient had 2 falls in the last year or 1 fall with injury or currently using an Ambulatory Assistive Device (Walker, Cane, Wheelchair, Crutches, etc.)? Yes, Patient High Risk for Falls What interventions were put in place to prevent falls during this visit? Instructed Patient to Call for Help if Needed, Offered Assistance with Transfers/Clothing, Instructed Patient to Remain Seated (Not on Exam Table) Until Exam, and Increased Observations by Caregivers PATIENT GENDER DATA: Assigned male at PATIENT RELEVANT IMPLANT DATA REVIEWED: Yes PATIENT PRESENTS WITH AN IMPLANTABLE OR ATTACHED MEDICATION NURSE: No ALLERGIES: Reviewed and unchanged CONTRAST ALLERGY: NO. EXAM: MRI - CONTRAST TYPE: GROUP II PERIPHERAL IV DATA: Ambulatory: A peripheral IV was started in the Left antecubital site with a Angio cath: 22 gauge. RADIOLOGY DEPARTMENT: MR; Exam(s) Completed: Lower MSK: Femur, left. Lavender Administered: No SIGNATURE: RT Patel(R) PATIENT NAME: Merlin Holman DATE: November 26, 2024 TIME: 1:39 PM [facility] 08-18-2024 Radiology Diagnostic study note [facility] Imaging Services [address] [place] [address] Hips B/L min 2 views w/ Pelvis MR#: [id number] Acct: [id number] Name: MERLIN HOLMAN Rep #: [id number] : 1950 M 74 From: Erick Frias MD PCP: Dr. Kang Ash MD Status: REG C LI Study:Hips B/L min 2 views w/ Pelvis Date of Exam: 08/17/24 Exam# [id number] Ordering Dr: Kang Ash MD PROCEDURE: HIPS B/L MIN 2 VIEWS W/ PELVIS REASON FOR EXAM: Hip pain, pain through left groin that radiates down leg TECHNIQUE: AP view of the pelvis and AP and lateral views of the right and the left hip, 5 total images COMPARISON: None. FINDINGS: No fracture or dislocation. The joint spaces appear within limits. Symmetric appearing SI joints and pubic symphysis appear within limits. No osseous lesion identified. Mild osteoarthrosis lateral aspect of the right and left hip. Possible changes of calcific tendinopathy at the right greater trochanter. RAD/Hips B/L min 2 views w/ Pelvis IMPRESSION: Mild bilateral hip osteoarthrosis. Reading Location: [id number] CC: Dr. Kang Ash MD ~ Foreign Student Adviser Teacher: Signed [facility] Evaluation note No assessment inform ation available [facility] Work Phone: Reason for referral (narrative) No reason for referral information available [facility] Work Phone: Reason for visit Narrative Specialty Diagnoses / Procedures Referred By Contac t Referred To Contact Radiology / RADIO MRI [facility] Diagnoses Pain in left leg M79.605 LT LEG PAIN MRI LT THIGH W CONT YULY [phone] SCHED @ REFERRING DR KANG ASH, STATES WILL FAX ORDER HERE Procedures MRI ANY JT LOWER EXTREM W/O CONTRAST MATRL MRI WWO MSK1 B1 300 Kang Ash MD [address] [place] [address] Phone: tel: fax: Radiology [address] [place] [address] Phone: tel: fax: Referral ID Status Reason Start Date Expiration Date Visits Re quested Visits Authorized [id number] Closed 11/16/2024 06/19/[address] [facility] Instructions Instruction Description Start Date Patient advised to follow-up with Primary Care Physician for BMI management. Advance Directives Advance Directive Response Recorded Date/ Time Living Will Yes April 03 8:07am Power of Stretcher And Drier Yes April 03, 2021 8:07am Advance Directive Response Recorded Date/ Time Living Will Yes April 03 7:07am Power of Stretcher And Drier Yes April 03, 2021 7:07am Assessments There may be information available, but it has not been provided by the sender. Review of System There may be information available, but it has not been provided by the sender. Family History There may be information available, but it has not been provided by the sender.No Family History Records FoundNo Family History Records FoundNo Family History Records FoundNo Family History Records Found Summary Purpose Chief Complaint and Reason for Visit Chief Complaint UNILATERAL PRIMARY O A, L KNEE. RX HERE Chief Complaint PREPROCEDURAL Chief Complaint PREPROCEDURAL PREPROCEDURAL PROSTATE BIOPSY Chief Complaint Admit Date ADD HIPS XRAYS August 17, 2024 1:36pm Chief Complaint Admit Date ADD HIPS XRAYS August 17, 2024 1:36pm L LEG PAIN RX HERE November 05, 2024 10:30 am PSA November 27, 2024 2:25 pm Chief Complaint Admit Date ADD HIPS XRAYS August 17, 2024 1:36pm L LEG PAIN RX HERE November 05, 2024 10:30 am Additional Source Comments (unrecognized sect ion and content) No Status Records FoundNo Status Records FoundNo Status Records FoundNo Status Records Found INFORMATION SOURCE (unrecogn ized section and content) DATE CREATED AUTHOR 06/14/2019 [facility] DATE CREATED AUTHOR AUTHOR'S ORGANIZ ATION 06/14/2019 [facility] DATE CREATED AUTHOR AUTHOR'S ORGANIZ ATION 12/03/2024 [facility] DATE CREATED AUTHOR AUTHOR'S ORGANIZ ATION 12/05/2024 [facility] Goals (unrecognized section and content) Goals may be documented in a n alternate sectionGoals may be documented in an alternate sectionGoals may be documented in an alternate sectionGoals may be documented in an alternate sectionGoals may be documented in an alternate sectionGoals may be documented in an alternate sectionGoals may be documented in an alternate sectionGoals may be documented in an alternate sectionGoals may be documented in an alternate sectionGoals may be documented in an alternate sectionGoals may be documented in an alternate sectionGoals may be documented in an alternate sectionGoals may be documented in an alternate sectionGoals may be documented in an alternate sectionGoals may be documented in an alternate sectionGoals may be documented in an alternate section Care Teams (unrecognized sec tion and content) Team Status: Active Member Role Status Dates Dr. Kang Ash MD Primary Care Provider Active Team Status: Inactive Member Role Status Dates Dr. Kang Ash MD Primary Care Provider Active Start: August 17, 2024 End: August 17, 2024 Dr. Kang Ash MD Other Provider Active Star t: August 17, 2024 End: August 17, 2024 Dr. Sanju Carlos MD Attending Provider Active Sta rt: August 17, 2024 End: August 17, 2024 Dr. Sanju Carlos MD Referring Provider Active Sta rt: August 17, 2024 End: August 17, 2024 Team Status: Inactive Member Role Status Dates Dr. Kang Ash MD Primary Care Provider Active Start: September 26, 2024 End: September 26, 2024 Dr. Kang Ash MD Attending Provider Active Start: September 26, 2024 End: September 26, 2024 Dr. Kang Ash MD Referring Provider Active Start: September 26, 2024 End: September 26, 2024 Team Status: Active Member Role Status Dates Dr. Kang Ash MD Primary Care Provider Active Start: November 05, 2024 Dr. Kang Ash MD Attending Provider Active Start: November 05, 2024 Dr. Kang Ash MD Referring Provider Active Start: November 05, 2024 Team Status: Inactive Member Role Status Dates Dr. Kang Ash MD Primary Care Provider Active Start: November 13, 2024 End: November 13, 2024 Dr. Sanju Carlos MD Attending Provider Active Sta rt: November 13, 2024 End: November 13, 2024 Dr. Sanju Carlos MD Referring Provider Active Sta rt: November 13, 2024 End: November 13, 2024 Team Status: Inactive Member Role Status Dates Dr. Kang Ash MD Primary Care Provider Active Start: November 27, 2024 End: November 27, 2024 Dr. Braydon Hills MD Attending Provider Active Start: November 27, 2024 End: November 27, 2024 Dr. Braydon Hills MD Referring Provider Active Start: November 27, 2024 End: November 27, 2024 Team Status: Active Member Role Status Dates Dr. Kang Ash MD Family Provider Active Dr. Kang Ash MD Primary Care Provider Active Team Status: Inactive Member Role Status Dates Dr. Kang Ash MD Primary Care Provider Active Dr. Sanju Carlos MD Attending Provider, Referring Provi giorgio Active Team Status: Inactive Member Role Status Dates Dr. Kang Ash MD Primary Care Provi giorgio, Attending Provider, Referring Provider Active Team Status: Inactive Member Role Status Dates Dr. Kang Ash MD Primary Care Provider Active Dr. Braydon Hills MD Attending Provider, Referr ing Provider Active Team Status: Inactive Member Role Status Dates Dr. Kang Ash MD Primary Care Provider, Attending Provider Active Team Status: Inactive Member Role Status Dates Dr. Kang Ash MD Primary Care Provider Active Start: June 18, 2024 End: June 18, 2024 Dr. Sanju Carlos MD Attending Provider Active Sta rt: June 18, 2024 End: June 18, 2024 Dr. Sanju Carlos MD Referring Provider Active Sta rt: June 18, 2024 End: June 18, 2024 Source Comments (unrecognize d section and content) In the event this informatio n is protected by the Federal Confidentiality of Alcohol and Drug Abuse Patient Records regulations: The Federal rules restrict any use of the information to criminally investigate or prosecute any alcohol or drug abuse patient.[facility] the event this information is protected by the Federal Confidentiality of Alcohol and Drug Abuse Patient Records regulations: The Federal rules restrict any use of the information to criminally investigate or prosecute any alcohol or drug abuse patient.[facility] Reason for Visit (unrecogniz ed section and content) Reason Comments New Patient FOR RECORDS PERTAINING TO PATIENTS WHO ARE OR HAVE BEEN ENROLLED IN A CHEMICAL DEPENDENCY/SUBSTANCEABUSE PROGRAM, SOME INFORMATION MAY BE OMITTED. This clinical summary was aggregated from multiple sources. Caution should be exercised in using it in the provision of clinical care. This summary normalizes information from multiple sources, and as a consequence, information in this document may materially change the coding, format and clinical context of patient data. In addition, data may be omitted in some cases. CLINICAL DECISIONS SHOULD BE BASED ON THE PRIMARY CLINICAL RECORDS. [facility] [employer] [facility]. provides no warranty or guarantee of the accuracy or completeness of information in this document.
[2024-12-06 09:18] LABS: International Normalized Ratio 1.1; Prothrombin Time (Protime)PT. 14.7 SECONDS (11.7-14.9)
[2024-12-06 09:19] LABS: Partial Thromboplast Time 33.5 Seconds (24.1-36.2)
[2024-12-06] MEDS: Midazolam 2 MG/2 ML Syringe IV ×2 (09:54→10:07)
[2024-12-06] MEDS: 0.9% Normal Saline (250mL Bag) 250 ML 15 ML IV (09:54)
[2024-12-06] MEDS: fentaNYL 100 MCG/2 ML Ampul IV (09:55)
--- NOTE | 2024-12-06 10:00 | ASPIGT_PTH ---
PATIENT: AQUILES BRENNER LOC: [place] U#:[id number] AGE/SX: 74/M ROOM: RE12/06/[address]: Dr. Kang Dickerson MD : 1950 BED: DIS: 12/06/2024 SPEC #: [id number] RECD: 12/06/24 10:15 STATUS: BRIAN REWade #: [id number] SHAWN: 12/06/24 10:[address]: Kang Dickerson DEPT: SURGICAL PATHOLOGY RECD BY: Laura Padilla Tissues: Iliac crest Procedures: FNA Specimen Adequacy Special Stain Group II Surgery Specimen Level IV Imprint (control) HEADER OPERATION: CT guided biopsy of left iliac mass PRE-OP DIAGNOSIS: Left acetabulum lesion TISSUE SUBMITTED: A- Left iliac mass, 18 gauge x 7 cores MICROSCOPIC DIAGNOSIS A. Left iliac mass, CT-guided core biopsy: * Atypical lymphoid proliferation. * Final diagnosis is PENDING hematopathologist consultation at [facility]; a separate report will follow. COMMENT The specimen is evaluated at the time of biopsy by Dr. Nj. Immediate Evaluation = 1. Lymphoid (send for flow). 2. Lymphoid. MICROSCOPIC DESCRIPTION Slides are reviewed. GROSS DESCRIPTION A.? Received in formalin labeled with the patient's name and date of . Designated as L iliac are approximately 4 dave tissue cores ranging 1.1 cm to 1.6 cm in length by 0.1 cm in diameter.? Entirely submitted in 2 cassettes. [place] 12/06/2024 CPT:[id number] ADDENDUM ADDENDUM ADDENDUM ADDENDUM ADDENDUM ADDENDUM ADDENDUM ADDENDUM ADDENDUM ADDENDUM ADDENDUM 12/14/2024 14:46 ADDENDUM 12/14/2024 14:46 ADDENDUM 12/14/2024 14:46 ADDENDUM 12/14/2024 14:46 ADDENDUM 12/14/2024 14:46 This addendum is added to incorporate an outside pathology consultation report. The case was examined at [facility] by Dr. Gifford (#[id number]) and the following diagnosis was rendered. A. 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 No evidence of amyloidosis, negative Congo Red staining. Please see complete above mentioned consultation report in EMR
--- NOTE | 2024-12-06 10:00 | ASPIGT_PTH ---
PATIENT: AQUILES BRENNER LOC: [place] U#:[id number] AGE/SX: 74/M ROOM: RE12/06/[address]: Dr. Kang Dickerson MD : 1950 BED: DIS: 12/06/2024 SPEC #: [id number] RECD: 12/06/24 10:15 STATUS: BRIAN REWade #: [id number] SHAWN: 12/06/24 10:[address]: Kang Dickerson DEPT: SURGICAL PATHOLOGY RECD BY: Laura Padilla Tissues: Iliac crest Procedures: FNA Specimen Adequacy Special Stain Group II Surgery Specimen Level IV Imprint (control) HEADER OPERATION: CT guided biopsy of left iliac mass PRE-OP DIAGNOSIS: Left acetabulum lesion TISSUE SUBMITTED: A- Left iliac mass, 18 gauge x 7 cores MICROSCOPIC DIAGNOSIS A. Left acetabulum, CT-guided core biopsy: * Atypical lymphoid proliferation. * Final diagnosis is PENDING hematopathologist consultation at [facility]; a separate report will follow. COMMENT The specimen is evaluated at the time of biopsy by Dr. Nj. Immediate Evaluation = 1. Lymphoid (send for flow). 2. Lymphoid. MICROSCOPIC DESCRIPTION Slides are reviewed. GROSS DESCRIPTION A.? Received in formalin labeled with the patient's name and date of . Designated as L iliac are approximately 4 dave tissue cores ranging 1.1 cm to 1.6 cm in length by 0.1 cm in diameter.? Entirely submitted in 2 cassettes. ID 12/06/2024 CPT:[id number]
[2024-12-06] MEDS: Lidocaine 2% (20 ml mdv) 20 ML Vial INFILT (10:09)
== END 2024-12-06 23:59 | disposition home or self-care (01) ==
PROVIDERS: Radiology Diagnostic Radiology; PCP Family Medicine; Referring Provider Family Medicine; Visit Provider Family Medicine
DX: Z01.812 Encounter for preprocedural laboratory examination (principal); C79.51 Secondary malignant neoplasm of bone; R19.00 Intra-abdominal and pelvic swelling, mass and lump, unspecified site; M79.605 Pain in left leg
CPT/HCPCS: 20220; 36415; 77012; 85025; 85610; 85730; 88172; 88305; 88313; 99156; A4216

== ENCOUNTER 2025-01-14 12:32 | Outpatient (CLI) | payer MEDICARE, SELFPAY | END 2025-01-14 23:59 | disposition home or self-care (01) | LOC: LABSPEC 12:34 | PROVIDERS: PCP Family Medicine; Referring Provider Internal Medicine Hematology & Oncology; Visit Provider Internal Medicine Hematology & Oncology | DX: C90.00 Multiple myeloma not having achieved remission (principal) | CPT/HCPCS: 86850; 86900; 86901 ==